=== PATIENT | female | born 1940 | race Caucasian/White ===

== ENCOUNTER 2016-08-15 18:37 | Inpatient (IN) | payer MEDICARE ==
[2016-08-15] MEDS: HEPARIN SOD (PORCINE) 5,000 UNIT/ML 1 ML SYRINGE SUBCUT SCH (01:30)
[2016-08-15 19:07] LABS: ABSOLUTE EOSINOPHILS # (AUTO) 0.3 10^3/uL (0.0-0.6); ABSOLUTE LYMPHOCYTES (AUTO) 1.4 10^3/uL (0.5-4.7); ABSOLUTE MONOCYTES (AUTO) 0.6 10^3/uL (0.1-1.4); ABSOLUTE NEUT (AUTO) 7.9 10^3/uL (1.7-8.2); BASOPHILS % (AUTO) 0.5 % (0-2); EOSINOPHILS % (AUTO) 2.9 % (0-6); HEMATOCRIT 37.1 % (36.0-47.0); HEMOGLOBIN 12.5 g/dL (12.0-15.5); HGB HCT DIFFERENCE 0.4; LYMPHOCYTES % (AUTO) 13.9 % (13-45); MEAN CORPUSCULAR HEMOGLOBIN 30.1 pg (27.0-33.4); MEAN CORPUSCULAR HGB CONC 33.8 g/dL (32.0-36.0); MEAN CORPUSCULAR VOLUME 89 fl (80-97); MONOCYTES % (AUTO) 6.2 % (3-13); RED BLOOD COUNT 4.16 10^6/uL (3.72-5.28); RED CELL DISTRIBUTION WIDTH 14.7 % (11.5-14.0); SEGMENTED NEUTROPHILS % (AUTO) 76.5 % (42-78); WHITE BLOOD COUNT 10.3 10^3/uL (4.0-10.5)
[2016-08-15 19:15] LABS: PROTHROMBIN TIME 13.5 SEC (11.4-15.4)
[2016-08-15] MEDS ORDERED: IPRATROPIUM/ALBUTEROL 0.5-2.5 MG/3 ML AMPUL NEB ONE (19:15)
[2016-08-15 19:23] LABS: VENOUS BLOOD BASE EXCESS 8.4 mmol/L; VENOUS BLOOD HCO3 35.4 mmol/L (20-32); VENOUS BLOOD PCO2 60.2 mmHg (35-63); VENOUS BLOOD PH 7.39 (7.30-7.42)
[2016-08-15] MEDS ORDERED: LORAZEPAM INJ 2 MG/1 ML VIAL IV ONE (19:36)
[2016-08-15] MEDS ORDERED: LORAZEPAM INJ 2 MG/1 ML VIAL ONE (19:38)
--- NOTE | 2016-08-15 20:20 | ER Document Report ---
ED General - General Chief Complaint: Respiratory Distress Stated Complaint: RESPIRATORY DISTRESS Mode of Arrival: Ambulatory Information source: Patient Notes: 75-year-old female presents with complaints of difficulty breathing. Patient notes she has had multiple previous similar episodes denies any previous intubation. Denies any productivity to cough patient with history of CHF COPD hypertension took 6 breathing treatments prior to arrival of EMS TRAVEL OUTSIDE OF THE [place] IN LAST 30 DAYS: No - HPI Onset: Just prior to arrival Onset/Duration: Sudden Quality of pain: No pain Severity: Moderate Pain Level: Denies Associated symptoms: Shortness of breath Exacerbated by: Denies Relieved by: Denies Similar symptoms previously: Yes Recently seen / treated by doctor: Yes - Related Data Allergies/Adverse Reactions: No Known Drug Allergies Allergy (Verified 07/16/16 12:01) Past Medical History - General Information source: Patient, Emergency Med Personnel - Social History Smoking Status: Smoker,Current Status Unk Cigarette use (# per day): No Chew tobacco use (# tins/day): No Smoking Education Provided: No Frequency of alcohol use: None Drug Abuse: None Family History: Malignancy - Mother of a complication, father of COPD, both siblings of cancer, Other Patient has suicidal ideation: No Patient has homicidal ideation: No - Past Medical History Cardiac Medical History: Reports: Hx Congestive Heart Failure, Hx Hypercholesterolemia, Hx Hypertension Pulmonary Medical History: Reports: Hx COPD, Hx Sleep Apnea Denies: Hx Tuberculosis Endocrine Medical History: Reports: Hx Diabetes Mellitus Type 2, Hx Hypothyroidism Musculoskeltal Medical History: Reports Hx Arthritis Psychiatric Medical History: Denies: Hx Depression Past Surgical History: Reports: Hx Hysterectomy, Hx Vascular Surgery - Immunizations Hx Diphtheria, Pertussis, Tetanus Vaccination: Yes Hx Pneumococcal Vaccination: 09/08/13 Review of Systems - Review of Systems Notes: REVIEW OF SYSTEMS: CONSTITUTIONAL : Denies fever, chills, or sweats. Denies recent illness. EENT: Denies eye, ear, throat, or mouth pain or symptoms. Denies nasal or sinus congestion or discharge. Denies throat, tongue, or mouth swelling or difficulty swallowing. CARDIOVASCULAR: Denies chest pain. Denies palpitations or racing or irregular heart beat. Denies ankle edema. RESPIRATORY: admits ot dififuctly breathing GASTROINTESTINAL: Denies abdominal pain or distention. Denies nausea, vomiting , or diarrhea. Denies blood in vomitus, stools, or per rectum. Denies black, tarry stools. Denies constipation. GENITOURINARY: Denies difficulty urinating, painful urination, burning, frequency, blood in urine, or discharge. FEMALE GENITOURINARY: Denies vaginal bleeding, heavy or abnormal periods, irregular periods. Denies vaginal discharge or odor. MUSCULOSKELETAL: Denies back or neck pain or stiffness. Denies joint pain or swelling. SKIN: Denies rash, lesions or sores. HEMATOLOGIC : Denies easy bruising or bleeding. LYMPHATIC: Denies swollen, enlarged glands. NEUROLOGICAL: Denies confusion or altered mental status. Denies passing out or loss of consciousness. Denies dizziness or lightheadedness. Denies headache. Denies weakness or paralysis or loss of use of either side. Denies problems with gait or speech. Denies sensory loss, numbness, or tingling. Denies seizures. PSYCHIATRIC: Denies anxiety or stress. Denies depression, suicidal ideation, or homicidal ideation. ALL OTHER SYSTEMS REVIEWED AND NEGATIVE. Dictation was performed using [employer] voice recognition software PHYSICAL EXAMINATION: GENERAL: chronically ill appearing in significat respiratory distress HEAD: Atraumatic, normocephalic. EYES: Pupils equal round and reactive to light, extraocular movements intact, conjunctiva are normal. ENT: Nares patent, oropharynx clear without exudates. Moist mucous membranes. NECK: Normal range of motion, supple without lymphadenopathy LUNGS: decreased breath sounds throughout, significant resp distress HEART: Regular rate and rhythm without murmurs ABDOMEN: Soft, nontender, nondistended abdomen. No guarding, no rebound. No masses appreciated. Female : deferred Musculoskeletal: Normal range of motion, no pitting or edema. No cyanosis. NEUROLOGICAL: Cranial nerves grossly intact. Normal speech, normal gait. Normal sensory, motor exams PSYCH: Normal mood, normal affect. SKIN: Warm, Dry, normal turgor, no rashes or lesions noted. Physical Exam - Vital signs Vitals: Pulse Ox 100 08/15/16 18:47 Course - Re-evaluation Re-evalutation: 08/15/16 20:26 spoke elsi perez, he does not beleive patient requires admission at this time, will take her off bipap and recheck on her home 2 l nc 08/15/16 20:31 Patient is set up to 75% on 2 L nasal cannula I will place BiPAP back on her at this time 08/15/16 20:36 Dr perez will admit patient - Vital Signs Vital signs: Temp Pulse Resp BP Pulse Ox 97.6 F 37 H 131/47 H 94 08/15/16 19:22 08/15/16 20:02 08/15/16 20:02 08/15/16 20:02 - Laboratory Result Diagrams: 08/15/16 18:50 08/15/16 20:00 Laboratory results interpreted by me: 08/15/16 08/15/16 08/15/16 18:50 19:10 20:00 RDW 14.7 H VBG HCO3 35.4 H Carbon Dioxide 33 H BUN 33 H Est GFR ( Amer) 55 L Est GFR (Non-Af Amer) 45 L Glucose 217 H ALT 60 H - Diagnostic Test Radiology reviewed: Image reviewed, Reports reviewed - EKG Interpretation by Me EKG shows normal: Sinus rhythm, [place], Intervals, QRS Complexes Critical Care Note - Critical Care Note Total time excluding time spent on procedures (mins): 45 Comments: minutes of critical care time spent in direct contact evaluating and reevaluating the patient, treating symptoms, reviewing labs and studies and speaking with family and consultants excluding any procedures Discharge - Discharge Clinical Impression: Acute on chronic respiratory failure with hypoxemia, COPD with exacerbation Condition: Serious Disposition: ADMITTED INPATIENT Admitting Provider: Hospitalist Unit Admitted: [facility]
[2016-08-15 20:29] LABS: ALANINE AMINOTRANSFERASE 60 U/L (9-52); ALKALINE PHOSPHATASE 63 U/L (38-126); ANION GAP 11 (5-19); ASPARTATE AMINO TRANSFERASE 29 U/L (14-36); BILIRUBIN,TOTAL 0.6 mg/dL (0.2-1.3); BLOOD UREA NITROGEN 33 mg/dL (7-20); CALCIUM 9.7 mg/dL (8.4-10.2); CARBON DIOXIDE 33 mmol/L (22-30); CHLORIDE 98 mmol/L (98-107); CREATININE RESULT 1.17 mg/dL (0.52-1.25); GLUCOSE 217 mg/dL (75-110); POTASSIUM 4.1 mmol/L (3.6-5.0); TOTAL PROTEIN 6.5 g/dL (6.3-8.2)
[2016-08-15 21:12] LABS: ARTERIAL BLOOD BASE EXCESS 5.1 mmol/L; ARTERIAL BLOOD O2 SATURATION 98.3 % (94-98)
[2016-08-15] MEDS ORDERED: LIDOCAINE 1% INJ-PF (10 MG/ML) 30 ML SDV ONE (21:15)
[2016-08-15] MEDS ORDERED: ACETAMINOPHEN 325 MG TABLET PO PRN (21:23)
[2016-08-15] MEDS ORDERED: MAGNESIUM HYDROXIDE SUSP 30 ML UDCUP PO PRN (21:23)
[2016-08-15] MEDS ORDERED: IPRATROPIUM/ALBUTEROL 0.5-2.5 MG/3 ML AMPUL NEB PRN (21:23)
[2016-08-15] MEDS ORDERED: DEXTROSE 40% GEL 15 GM TUBE PO PRN ×2 (21:23)
[2016-08-15] MEDS ORDERED: GLUCAGON,HUMAN RECOMB 1 MG INJ IM PRN (21:23)
[2016-08-15] MEDS ORDERED: DEXTROSE 50%-WATER 25 GM/50 ML DISP.SYRIN IV PRN ×2 (21:23)
[2016-08-15] MEDS ORDERED: ONDANSETRON HCL INJ/PF 4 MG/2 ML SDV IV PRN (21:23)
[2016-08-15 21:26] LABS: CREATINE KINASE MB 1.33 ng/mL (<4.55); TROPONIN I 0.017 ng/mL
[2016-08-15] MEDS ORDERED: NORMAL SALINE 1000 ML 1,000 ML IV ONE (21:30)
[2016-08-15] MEDS ORDERED: ACETAZOLAMIDE 250 MG TABLET PO ONE (21:45)
[2016-08-15 21:56] LABS: MAGNESIUM 1.7 mg/dL (1.6-2.3); PHOSPHORUS 4.6 mg/dL (2.5-4.5)
[2016-08-15] MEDS ORDERED: DILTIAZEM HCL 60 MG TABLET PO ONE (22:33)
[2016-08-16] MEDS ORDERED: LORAZEPAM INJ 2 MG/1 ML VIAL ONE
[2016-08-16] MEDS ORDERED: AMLODIPINE BESYLATE 5 MG TABLET PO ONE (00:07)
[2016-08-16] MEDS ORDERED: DILTIAZEM HCL INJ 25 MG/5 ML VIAL ONE (01:14)
[2016-08-16] MEDS: DILTIAZEM HCL 60 MG TABLET PO SCH ×4 (01:56→18:07)
[2016-08-16] MEDS: IPRATROPIUM/ALBUTEROL 0.5-2.5 MG/3 ML AMPUL NEB SCH ×4 (02:05→19:51)
[2016-08-16] MEDS ORDERED: DILTIAZEM HCL INJ 25 MG/5 ML VIAL IV ONE (02:15)
[2016-08-16] MEDS: HEPARIN SOD (PORCINE) 5,000 UNIT/ML 1 ML SYRINGE SUBCUT SCH ×3 (05:49→21:55)
[2016-08-16 06:16] LABS: ABSOLUTE EOSINOPHILS # (AUTO) 0.3 10^3/uL (0.0-0.6); ABSOLUTE LYMPHOCYTES (AUTO) 1.1 10^3/uL (0.5-4.7); ABSOLUTE MONOCYTES (AUTO) 1.1 10^3/uL (0.1-1.4); ABSOLUTE NEUT (AUTO) 9.3 10^3/uL (1.7-8.2); BASOPHILS % (AUTO) 0.1 % (0-2); EOSINOPHILS % (AUTO) 2.6 % (0-6); HEMATOCRIT 34.6 % (36.0-47.0); HEMOGLOBIN 11.7 g/dL (12.0-15.5); HGB HCT DIFFERENCE 0.5; LYMPHOCYTES % (AUTO) 9.2 % (13-45); MEAN CORPUSCULAR HEMOGLOBIN 30.6 pg (27.0-33.4); MEAN CORPUSCULAR HGB CONC 33.9 g/dL (32.0-36.0); MEAN CORPUSCULAR VOLUME 90 fl (80-97); MONOCYTES % (AUTO) 9.1 % (3-13); RED BLOOD COUNT 3.84 10^6/uL (3.72-5.28); RED CELL DISTRIBUTION WIDTH 14.9 % (11.5-14.0); WHITE BLOOD COUNT 11.7 10^3/uL (4.0-10.5)
[2016-08-16 06:31] LABS: ANION GAP 7 (5-19); BLOOD UREA NITROGEN 33 mg/dL (7-20); CALCIUM 9.1 mg/dL (8.4-10.2); CARBON DIOXIDE 38 mmol/L (22-30); CHLORIDE 100 mmol/L (98-107); CREATINE KINASE 46 U/L (30-135); CREATININE RESULT 1.07 mg/dL (0.52-1.25); GLUCOSE 181 mg/dL (75-110); SODIUM 145.1 mmol/L (137-145)
[2016-08-16 06:43] LABS: CREATINE KINASE MB 1.48 ng/mL (<4.55); POTASSIUM 5.2 mmol/L (3.6-5.0); TROPONIN I 0.039 ng/mL
--- NOTE | 2016-08-16 06:43 | PDOC H&P ---
History of Present Illness Admission Date/PCP: 08/15/16 21:23 Patient complains of: Shortness of breath History of Present Illness: NIELS ALSTON is a 75 year old female with a history of COPD with home O2 dependence, chronic bronchitis, obstructive sleep apnea, anxiety, diabetes and persistent tobacco dependence. Who was just discharged on August 11 for the above having recurrent symptoms prompting her to seek evaluation emergency room where she's found to be tachypneic and tachycardic found to have a blood gas notable for hypercapnic respiratory failure with a PCO2 over 78 she started on BiPAP and referred to the hospitalist for admission. Patient required Ativan's for severe agitation and is subsequently unable to cooperate with history and exam. Past Medical History Cardiac Medical History: Reports: Congestive Heart Failure, Hyperlipidema, Hypertension Pulmonary Medical History: Reports: Chronic Obstructive Pulmonary Disease (COPD) , Sleep Apnea Denies: Tuberculosis Endocrine Medical History: Reports: Diabetes Mellitus Type 2, Hypothyroidism Musculoskeltal Medical History: Reports: Arthritis Psychiatric Medical History: Reports: General Anxiety Disorder, Tobacco Dependency Denies: Depression Past Surgical History Past Surgical History: Reports: Hysterectomy, Vascular Surgery Social History Information Source: [facility] Records Smoking Status: Current Every Day Smoker Frequency of Alcohol Use: None Hx Recreational Drug Use: No Drugs: None Hx Prescription Drug Abuse: No - Advance Directive Resuscitation Status: Full Code Family History Family History: Malignancy - Mother of a complication, father of COPD, both siblings of cancer, Other Parental Family History Reviewed: Yes Children Family History Reviewed: Yes Sibling(s) Family History Reviewed.: Yes Medication/Allergy Home Medications: Budesonide/Formoterol Fumarate [Symbicort 160-4.5 Mcg Inhaler] 2 puff IH BID Acetaminophen [Tylenol 325 mg Tablet] 650 mg PO Q4HP PRN tablet 07/20/16 Albuterol Sulfate [Ventolin 0.083% Neb 2.5 mg/3 mL Ampul] 2.5 mg NEB Q6HP PRN # 60 vial.neb 07/20/16 Levothyroxine Sodium [Synthroid] 175 mcg PO DAILY #30 tablet 07/20/16 Lisinopril [Prinivil 10 mg Tablet] 10 mg PO DAILY #30 tablet 07/20/16 Metoprolol Succinate [Toprol Xl 25 mg Tab.sr] 25 mg PO DAILY #30 tab.sr.24h Furosemide [Lasix 20 mg Tablet] 20 mg PO QAM #30 tablet 08/11/16 Aspirin [Ecotrin 81 mg EC Tablet] 81 mg PO DAILY #30 tabec 08/12/16 Gemfibrozil [Lopid 600 mg Tablet] 600 mg PO BID #60 tab 08/12/16 Isosorbide Mononitrate [Imdur 30 mg Tablet.er] 30 mg PO DAILY #30 tab.er.24h Rosuvastatin Calcium [Crestor] 40 mg PO QHS #30 tab 08/12/16 Fenofibrate Nanocrystallized [Fenofibrate] 08/16/16 Fenofibrate Nanocrystallized [Fenofibrate] 145 mg PO DAILY 08/16/16 Glipizide [Glipizide Xl] 5 mg PO BID 08/16/16 Metformin HCl [Glucophage] 500 mg PO BID 08/16/16 Allergies/Adverse Reactions: No Known Drug Allergies Allergy (Verified 07/16/16 12:01) Review of Systems ROS unobtainable: Due to mental status Physical Exam Vital Signs: Temp Pulse Resp BP Pulse Ox 98.4 F 100 26 H 140/38 H 98 08/16/16 04:24 08/16/16 04:24 08/16/16 04:24 08/16/16 04:24 08/16/16 04:24 Intake & Output 08/14/16 08/15/16 08/16/16 11:59 11:59 11:59 Intake Total 1002 Balance 1002 Weight 91.4 kg General appearance: PRESENT: disheveled, mild distress Head exam: PRESENT: atraumatic, normocephalic Eye exam: PRESENT: conjunctiva pink, EOMI, PERRLA. ABSENT: scleral icterus Ear exam: PRESENT: normal external ear exam Mouth exam: PRESENT: moist, tongue midline Neck exam: ABSENT: carotid bruit, JVD, lymphadenopathy, thyromegaly Respiratory exam: PRESENT: decreased breath sounds, prolonged expiratory phas, symmetrical, tachypnea. ABSENT: accessory muscle use, chest wall tenderness, retraction, rhonchi, stridor Cardiovascular exam: PRESENT: RRR. ABSENT: diastolic murmur, rubs, systolic murmur Pulses: PRESENT: normal dorsalis pedis pul Vascular exam: PRESENT: normal capillary refill GI/Abdominal exam: PRESENT: normal bowel sounds, soft. ABSENT: distended, guarding, mass, organolmegaly, rebound, tenderness Rectal exam: PRESENT: deferred Extremities exam: PRESENT: full ROM. ABSENT: calf tenderness, clubbing, pedal edema Neurological exam: PRESENT: alert, oriented to person, CN II-XII grossly intact Psychiatric exam: PRESENT: agitated, anxious Skin exam: PRESENT: dry, intact, warm. ABSENT: cyanosis, rash Results Laboratory Results: 08/16/16 05:02 08/16/16 05:02 WBC 11.7 H RBC 3.84 Hgb 11.7 L Hct 34.6 L MCV 90 MCH 30.6 MCHC 33.9 RDW 14.9 H Plt Count 183 Seg Neutrophils % 79.0 H Lymphocytes % 9.2 L Monocytes % 9.1 Eosinophils % 2.6 Basophils % 0.1 Absolute Neutrophils 9.3 H Absolute Lymphocytes 1.1 Absolute Monocytes 1.1 Absolute Eosinophils 0.3 Absolute Basophils 0.0 Impressions: Chest X-Ray 08/15/16 18:57 IMPRESSION: NO ACUTE RADIOGRAPHIC FINDING IN THE CHEST. Assessment & Plan - Diagnosis (1) Acute on chronic respiratory failure with hypoxemia Is this a current diagnosis for this admission?: YesPlan: Empiric antibiotics albuterol Atrovent consideration of steroids,aggressive pulmonary toilet avoidance of tobacco continued BiPAP (2) Acute exacerbation of chronic bronchitis Is this a current diagnosis for this admission?: YesPlan: We see #1 with addition of empiric doxycycline (3) Diabetes mellitus Qualifiers: Diabetes mellitus type: type 2 Diabetes mellitus complication status: with hyperglycemia Diabetes mellitus intermodal dispatcher insulin use: without fpc use Qualified Code(s): E11.65 - Type 2 diabetes mellitus with hyperglycemia; 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
[2016-08-16] MEDS ORDERED: DOXYCYCLINE HYCLATE 100 MG TABLET PO ONE (07:00)
--- NOTE | 2016-08-16 08:37 | EKG REPORT ---
SEVERITY:- OTHERWISE NORMAL ECG - SINUS TACHYCARDIA : Confirmed by: Kishore Nicole MD 16-Aug-2016 08:36:18
[2016-08-16] MEDS: DOCUSATE SODIUM 100 MG CAPSULE PO SCH ×2 (09:57→18:07)
[2016-08-16] MEDS ORDERED: ACETAZOLAMIDE 250 MG TABLET PO SCH (10:00)
[2016-08-16 14:11] LABS: CREATINE KINASE MB 1.77 ng/mL (<4.55); TROPONIN I 0.042 ng/mL
[2016-08-16] MEDS: METOPROLOL TARTRATE PF/INJ 5 MG/5 ML SDV IV SCH ×2 (14:20→21:54)
--- NOTE | 2016-08-16 15:01 | PDOC PROGRESS REPORT ---
Subjective Progress Note for:: 08/16/16 Subjective:: The patient is nonverbal. On BiPAP. Readmitted for respiratory failure and COPD exacerbation. He received multiple doses of benzodiazepine in the emergency room. No reported temperature spikes, nausea or vomiting, diarrhea. Physical Exam Vital Signs: Temp Pulse Resp BP Pulse Ox 98.2 F 104 H 27 H 93/37 L 97 08/16/16 11:58 08/16/16 13:53 08/16/16 13:53 08/16/16 11:58 08/16/16 13:53 Intake & Output 08/15/16 08/16/16 08/17/16 06:59 06:59 06:59 Intake Total 1002 0 Balance 1002 0 Weight 91.4 kg General appearance: PRESENT: no acute distress, morbidly obese, other Exam: On BiPAP Head exam: PRESENT: normocephalic Eye exam: PRESENT: conjunctiva pink Mouth exam: PRESENT: moist, neck supple Neck exam: ABSENT: JVD Respiratory exam: PRESENT: decreased breath sounds, unlabored. ABSENT: crackles , rhonchi, wheezes Cardiovascular exam: PRESENT: RRR. ABSENT: gallop GI/Abdominal exam: PRESENT: hypoactive bowel sounds, soft. ABSENT: distended, tenderness Extremities exam: ABSENT: pedal edema Neurological exam: PRESENT: altered - Sedated, able to respond when shaken and called. Psychiatric exam: ABSENT: agitated Focused psych exam: ABSENT: restlessness Skin exam: PRESENT: dry, warm. ABSENT: cyanosis Results Laboratory Results: 08/16/16 05:02 08/16/16 05:02 08/16/16 08/16/16 08/16/16 05:02 05:02 14:10 WBC 11.7 H RBC 3.84 Hgb 11.7 L Hct 34.6 L MCV 90 MCH 30.6 MCHC 33.9 RDW 14.9 H Plt Count 183 Seg Neutrophils % 79.0 H Lymphocytes % 9.2 L Monocytes % 9.1 Eosinophils % 2.6 Basophils % 0.1 Absolute Neutrophils 9.3 H Absolute Lymphocytes 1.1 Absolute Monocytes 1.1 Absolute Eosinophils 0.3 Absolute Basophils 0.0 Carbonic Acid Cancelled HCO3/H2CO3 Ratio Cancelled ABG pH Cancelled ABG pCO2 Cancelled ABG pO2 Cancelled ABG HCO3 Cancelled ABG O2 Saturation Cancelled ABG Base Excess Cancelled FiO2 Cancelled Sodium 145.1 H Potassium 5.2 H D Chloride 100 Carbon Dioxide 38 H Anion Gap 7 BUN 33 H Creatinine 1.07 Est GFR ( Amer) > 60 Est GFR (Non-Af Amer) 50 L Glucose 181 H Calcium 9.1 08/16/16 08/16/16 08/16/16 05:02 05:02 13:10 Creatine Kinase 46 58 CK-MB (CK-2) 1.48 Troponin I 0.039 08/16/16 13:10 Creatine Kinase CK-MB (CK-2) 1.77 Troponin I 0.042 Impressions: Chest X-Ray 08/15/16 18:57 IMPRESSION: NO ACUTE RADIOGRAPHIC FINDING IN THE CHEST. Assessment & Plan - Diagnosis (1) Acute on chronic respiratory failure with hypoxemia Is this a current diagnosis for this admission?: Yes (2) COPD with exacerbation Is this a current diagnosis for this admission?: Yes (3) Debility Is this a current diagnosis for this admission?: Yes (4) Hyperkalemia Is this a current diagnosis for this admission?: Yes (5) Diabetes mellitus Qualifiers: Diabetes mellitus type: type 2 Diabetes mellitus complication status: with hyperglycemia Diabetes mellitus intermission coordinator insulin use: without detention use Qualified Code(s): E11.65 - Type 2 diabetes mellitus with hyperglycemia; 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.4 - termite 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) 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 of insulin Is this a current diagnosis for this admission?: Yes (6) Hypothyroid Qualifiers: Hypothyroidism type: unspecified Qualified Code(s): E03.9 - Hypothyroidism, unspecified Is this a current diagnosis for this admission?: Yes (7) Left ventricular diastolic dysfunction Is this a current diagnosis for this admission?: Yes (8) Hypertension Qualifiers: Hypertension type: essential hypertension Qualified Code(s): I10 - Essential (primary) hypertension Is this a current diagnosis for this admission?: Yes (9) Hyperlipidemia Qualifiers: Hyperlipidemia type: unspecified Qualified Code(s): E78.5 - Hyperlipidemia, unspecified Is this a current diagnosis for this admission?: Yes (10) Anxiety Is this a current diagnosis for this admission?: Yes (11) Obstructive sleep apnea Is this a current diagnosis for this admission?: Yes - Time Time Spent with patient: 25-34 minutes - Plan Summary Plan Summary: We will obtain an ABG. We will begin continuous intravenous fluid hydration. Hold any sedatives. Continue BiPAP. I will put the patient on intravenous metoprolol instead of Cardizem. Avoid sedatives when fully awake. Continue bronchodilators. management planner for subacute rehabilitation. We will monitor cardiac enzymes and electrolytes as well.
[2016-08-16 15:13] LABS: ARTERIAL BLOOD BASE EXCESS 5.7 mmol/L; ARTERIAL BLOOD O2 SATURATION 97.1 % (94-98)
[2016-08-16 15:51] LABS: ARTERIAL BLOOD BASE EXCESS 5.6 mmol/L; ARTERIAL BLOOD O2 SATURATION 97.1 % (94-98)
[2016-08-16] MEDS: NORMAL SALINE 1000 ML 1,000 ML IV PRN (16:31)
[2016-08-16] MEDS ORDERED: SODIUM POLYSTYRENE SULFONATE 15 GM/60 ML PO ONE (20:00)
[2016-08-16] MEDS ORDERED: ACETAMINOPHEN 650 MG SUPP.RECT PR PRN (21:27)
[2016-08-16] MEDS ORDERED: DOXYCYCLINE HYCLATE 100 MG TABLET PO SCH (22:00)
[2016-08-16] MEDS ORDERED: DOXYCYCLINE HYCLATE INJ 100 MG VIAL IV SCH (22:00)
[2016-08-16] MEDS: DOXYCYCLINE HYCLATE 100 MG in DEXTROSE 5%-WATER 250 ML IV SCH (22:26)
[2016-08-17] MEDS: IPRATROPIUM/ALBUTEROL 0.5-2.5 MG/3 ML AMPUL NEB SCH ×4 (02:20→20:19)
[2016-08-17 03:26] LABS: ANION GAP 8 (5-19); BLOOD UREA NITROGEN 26 mg/dL (7-20); CALCIUM 9.4 mg/dL (8.4-10.2); CARBON DIOXIDE 38 mmol/L (22-30); CHLORIDE 101 mmol/L (98-107); CREATININE RESULT 0.86 mg/dL (0.52-1.25); GLUCOSE 127 mg/dL (75-110); POTASSIUM 5.1 mmol/L (3.6-5.0); SODIUM 146.6 mmol/L (137-145)
[2016-08-17 03:29] LABS: HEMATOCRIT 35.6 % (36.0-47.0); HEMOGLOBIN 11.8 g/dL (12.0-15.5); HGB HCT DIFFERENCE -0.2; MEAN CORPUSCULAR HEMOGLOBIN 30.5 pg (27.0-33.4); MEAN CORPUSCULAR HGB CONC 33.2 g/dL (32.0-36.0); MEAN CORPUSCULAR VOLUME 92 fl (80-97); RED BLOOD COUNT 3.88 10^6/uL (3.72-5.28); RED CELL DISTRIBUTION WIDTH 14.4 % (11.5-14.0); WHITE BLOOD COUNT 6.2 10^3/uL (4.0-10.5)
[2016-08-17] MEDS: METOPROLOL TARTRATE PF/INJ 5 MG/5 ML SDV IV SCH ×4 (05:26→21:45)
[2016-08-17] MEDS: HEPARIN SOD (PORCINE) 5,000 UNIT/ML 1 ML SYRINGE SUBCUT SCH ×3 (05:27→21:55)
[2016-08-17] MEDS: NORMAL SALINE 1000 ML 1,000 ML IV PRN ×3 (07:48→21:55)
[2016-08-17] MEDS: DOXYCYCLINE HYCLATE 100 MG in DEXTROSE 5%-WATER 250 ML IV SCH ×2 (09:10→21:45)
--- NOTE | 2016-08-17 15:15 | PDOC PROGRESS REPORT ---
Subjective Progress Note for:: 08/17/16 Subjective:: Patient is more awake today than yesterday. However the patient still restless. Patient remains confused and is on restrain. She is on 50% FiO2 and remained on BiPAP. No temperature spikes or respiratory distress reported. Patient off sedatives. Physical Exam Vital Signs: Temp Pulse Resp BP Pulse Ox 99.5 F 119 H 33 H 112/67 95 08/17/16 11:46 08/17/16 14:35 08/17/16 14:35 08/17/16 11:46 08/17/16 14:35 Intake & Output 08/16/16 08/17/16 08/18/16 06:59 06:59 06:59 Intake Total 1002 1252 0 Balance 1002 1252 0 Weight 91.4 kg 109 kg General appearance: PRESENT: morbidly obese, other - On BiPAP, Head exam: PRESENT: normocephalic Mouth exam: PRESENT: moist, neck supple Neck exam: ABSENT: JVD Respiratory exam: PRESENT: clear to auscultation jessenia - Anteriorly. ABSENT: crackles, wheezes Cardiovascular exam: PRESENT: RRR, tachycardia GI/Abdominal exam: PRESENT: soft. ABSENT: distended, tenderness Extremities exam: ABSENT: pedal edema Neurological exam: PRESENT: altered Focused psych exam: PRESENT: restlessness Skin exam: PRESENT: dry, warm. ABSENT: cyanosis Results Laboratory Results: 08/17/16 03:04 08/17/16 03:04 08/16/16 08/16/16 08/16/16 14:45 15:40 17:12 WBC RBC Hgb Hct MCV MCH MCHC RDW Plt Count Carbonic Acid 2.74 H 2.37 H HCO3/H2CO3 Ratio 13:1 14:1 ABG pH 7.22 L 7.27 L ABG pCO2 91.1 H* 78.6 H* ABG pO2 115.1 H 109.2 H ABG HCO3 36.2 H 34.9 H ABG O2 Saturation 97.1 97.1 ABG Base Excess 5.7 5.6 FiO2 45% 45% Sodium Potassium 5.2 H Chloride Carbon Dioxide Anion Gap BUN Creatinine Est GFR ( Amer) Est GFR (Non-Af Amer) Glucose Calcium 08/17/16 08/17/16 03:04 03:04 WBC 6.2 RBC 3.88 Hgb 11.8 L Hct 35.6 L MCV 92 MCH 30.5 MCHC 33.2 RDW 14.4 H Plt Count 128 L Carbonic Acid HCO3/H2CO3 Ratio ABG pH ABG pCO2 ABG pO2 ABG HCO3 ABG O2 Saturation ABG Base Excess FiO2 Sodium 146.6 H Potassium 5.1 H Chloride 101 Carbon Dioxide 38 H Anion Gap 8 BUN 26 H Creatinine 0.86 Est GFR ( Amer) > 60 Est GFR (Non-Af Amer) > 60 Glucose 127 H Calcium 9.4 08/16/16 08/16/16 08/16/16 05:02 05:02 13:10 Creatine Kinase 46 58 CK-MB (CK-2) 1.48 Troponin I 0.039 08/16/16 08/16/16 08/16/16 13:10 17:12 17:12 Creatine Kinase 65 CK-MB (CK-2) 1.77 Troponin I 0.042 0.038 08/16/16 08/16/16 08/17/16 20:59 20:59 03:04 Creatine Kinase 68 66 CK-MB (CK-2) Troponin I 0.039 08/17/16 03:04 Creatine Kinase CK-MB (CK-2) Troponin I 0.035 Impressions: Chest X-Ray 08/15/16 18:57 IMPRESSION: NO ACUTE RADIOGRAPHIC FINDING IN THE CHEST. Assessment & Plan - Diagnosis (1) Acute on chronic respiratory failure with hypoxemia Is this a current diagnosis for this admission?: Yes (2) COPD with exacerbation Is this a current diagnosis for this admission?: Yes (3) Debility Is this a current diagnosis for this admission?: Yes (4) Hyperkalemia Is this a current diagnosis for this admission?: Yes (5) Diabetes mellitus Qualifiers: Diabetes mellitus type: type 2 Diabetes mellitus complication status: with hyperglycemia Diabetes mellitus rat exterminator insulin use: without rat exterminator use Qualified Code(s): E11.65 - Type 2 diabetes mellitus with hyperglycemia; Z79.4 - senior care (current) use of insulin Is this a current diagnosis for this admission?: Yes (6) Hypothyroid Qualifiers: Hypothyroidism type: unspecified Qualified Code(s): E03.9 - Hypothyroidism, unspecified Is this a current diagnosis for this admission?: Yes (7) Left ventricular diastolic dysfunction Is this a current diagnosis for this admission?: Yes (8) Hypertension Qualifiers: Hypertension type: essential hypertension Qualified Code(s): I10 - Essential (primary) hypertension Is this a current diagnosis for this admission?: Yes (9) Hyperlipidemia Qualifiers: Hyperlipidemia type: unspecified Qualified Code(s): E78.5 - Hyperlipidemia, unspecified Is this a current diagnosis for this admission?: Yes (10) Anxiety Is this a current diagnosis for this admission?: Yes (11) Obstructive sleep apnea Is this a current diagnosis for this admission?: Yes - Time Time Spent with patient: 25-34 minutes - Plan Summary Plan Summary: We will try to decrease the FiO2. We will try to wean BiPAP and displaced the patient and nasal cannula oxygen. We will obtain an ABG. We will repeat potassium and give the patient insulin and D50. Continue other medications and supportive care.
[2016-08-17] MEDS ORDERED: DEXTROSE 50%-WATER 25 GM/50 ML DISP.SYRIN IV ONE (15:30)
[2016-08-17] MEDS ORDERED: INSULIN REG, HUMAN 100 UNIT/ML 3 ML VIAL (PYX) IV ONE (15:30)
[2016-08-17 16:49] LABS: ARTERIAL BLOOD BASE EXCESS 9.7 mmol/L; ARTERIAL BLOOD O2 SATURATION 94.9 % (94-98)
[2016-08-17] MEDS ORDERED: LORAZEPAM INJ 2 MG/1 ML VIAL ONE (18:09)
[2016-08-17] MEDS ORDERED: LORAZEPAM INJ 2 MG/1 ML VIAL IV ONE (18:15)
[2016-08-18] MEDS: IPRATROPIUM/ALBUTEROL 0.5-2.5 MG/3 ML AMPUL NEB SCH ×4 (02:06→21:21)
[2016-08-18] MEDS: METOPROLOL TARTRATE PF/INJ 5 MG/5 ML SDV IV SCH ×4 (03:01→23:30)
[2016-08-18] MEDS: HEPARIN SOD (PORCINE) 5,000 UNIT/ML 1 ML SYRINGE SUBCUT SCH ×3 (05:23→23:29)
[2016-08-18] MEDS: DOXYCYCLINE HYCLATE 100 MG in DEXTROSE 5%-WATER 250 ML IV SCH ×2 (09:20→23:28)
--- NOTE | 2016-08-18 10:00 | PDOC PROGRESS REPORT ---
Subjective Progress Note for:: 08/18/16 Subjective:: Patient reportedly tolerated off BiPAP yesterday on nasal cannula oxygen but early this morning started to desaturate. Patient given Ativan yesterday and did well on 1 mg. No reported oversedation. No reported temperature spikes. This morning oxygenation was in 50% and the patient was pale looking and therefore placed back on BiPAP at 100%. Patient is now resting again and lethargic. Physical Exam Vital Signs: Temp Pulse Resp BP Pulse Ox 97.7 F 112 H 40 H 183/163 H 81 L 08/18/16 07:08 08/18/16 08:31 08/18/16 07:08 08/18/16 07:08 08/18/16 07:08 Intake & Output 08/17/16 08/18/16 08/19/16 06:59 06:59 06:59 Intake Total 1252 2061 Output Total 0 Balance 1252 2061 Weight 109 kg 108.7 kg General appearance: PRESENT: no acute distress, obese, other - Lethargic Head exam: PRESENT: normocephalic Eye exam: PRESENT: conjunctiva pink Mouth exam: PRESENT: dry mucosa, neck supple Neck exam: ABSENT: JVD Respiratory exam: PRESENT: clear to auscultation jessenia, unlabored. ABSENT: accessory muscle use, rhonchi, wheezes Cardiovascular exam: PRESENT: RRR. ABSENT: gallop GI/Abdominal exam: PRESENT: hypoactive bowel sounds, soft. ABSENT: tenderness Extremities exam: PRESENT: pedal edema - Trace edema Skin exam: PRESENT: dry, warm. ABSENT: cyanosis Results Laboratory Results: 08/17/16 03:04 08/17/16 18:15 08/17/16 08/17/16 16:30 18:15 Carbonic Acid 1.93 H HCO3/H2CO3 Ratio 19:1 ABG pH 7.38 ABG pCO2 64.1 H ABG pO2 78.2 L ABG HCO3 36.9 H ABG O2 Saturation 94.9 ABG Base Excess 9.7 FiO2 50% Potassium 4.5 08/16/16 08/16/16 08/16/16 05:02 05:02 13:10 Creatine Kinase 46 58 CK-MB (CK-2) 1.48 Troponin I 0.039 08/16/16 08/16/16 08/16/16 13:10 17:12 17:12 Creatine Kinase 65 CK-MB (CK-2) 1.77 Troponin I 0.042 0.038 08/16/16 08/16/16 08/17/16 20:59 20:59 03:04 Creatine Kinase 68 66 CK-MB (CK-2) Troponin I 0.039 08/17/16 03:04 Creatine Kinase CK-MB (CK-2) Troponin I 0.035 Impressions: Chest X-Ray 08/15/16 18:57 IMPRESSION: NO ACUTE RADIOGRAPHIC FINDING IN THE CHEST. Assessment & Plan - Diagnosis (1) Acute on chronic respiratory failure with hypoxemia Is this a current diagnosis for this admission?: Yes (2) COPD with exacerbation Is this a current diagnosis for this admission?: Yes (3) Debility Is this a current diagnosis for this admission?: Yes (4) Hyperkalemia Is this a current diagnosis for this admission?: Yes (5) Diabetes mellitus Qualifiers: Diabetes mellitus type: type 2 Diabetes mellitus complication status: with hyperglycemia Diabetes mellitus intermediate insulin use: without intermediate use Qualified Code(s): E11.65 - Type 2 diabetes mellitus with hyperglycemia; Z79.4 - alf (current) use of insulin Is this a current diagnosis for this admission?: Yes (6) Hypothyroid Qualifiers: Hypothyroidism type: unspecified Qualified Code(s): E03.9 - Hypothyroidism, unspecified Is this a current diagnosis for this admission?: Yes (7) Left ventricular diastolic dysfunction Is this a current diagnosis for this admission?: Yes (8) Hypertension Qualifiers: Hypertension type: essential hypertension Qualified Code(s): I10 - Essential (primary) hypertension Is this a current diagnosis for this admission?: Yes (9) Hyperlipidemia Qualifiers: Hyperlipidemia type: unspecified Qualified Code(s): E78.5 - Hyperlipidemia, unspecified Is this a current diagnosis for this admission?: Yes (10) Anxiety Is this a current diagnosis for this admission?: Yes (11) Obstructive sleep apnea Is this a current diagnosis for this admission?: Yes - Time Time Spent with patient: 25-34 minutes - Plan Summary Plan Summary: We will obtain another chest x-ray. We will try to arrange for home BiPAP with assortment planner. Patient will go to subacute rehabilitation and has a bed offer. We will consult pulmonary for further evaluation. We will decrease the FiO2 to 40%. I will give the patient as needed Ativan every 6 hours for anxiety. Continue supportive care. Patient when PCO2 is low is fully awake as reported by staff.
[2016-08-18] MEDS: NORMAL SALINE 1000 ML 1,000 ML IV PRN (12:52)
[2016-08-18] MEDS: LORAZEPAM INJ 2 MG/1 ML VIAL IV PRN (18:23)
--- NOTE | 2016-08-18 19:46 | PDOC CONSULTATION ---
Consultation Consult Date: 08/18/16 Attending physician:: LIA FLORES Consult reason:: acute/chronic hypoxic;hypercapnic resp fail History of Present Illness Admission Date/PCP: 08/15/16 21:23 History of Present Illness: NIELS ALSTON is a 75 year old female with a history of COPD with home O2 dependence, chronic bronchitis, obstructive sleep apnea, anxiety, diabetes and persistent tobacco dependence. Who was just discharged on August 11 for the above having recurrent symptoms prompting her to seek evaluation emergency room where she's found to be tachypneic and tachycardic found to have a blood gas notable for hypercapnic respiratory failure with a PCO2 over 78 she started on BiPAP and referred to the hospitalist for admission. Patient required Ativan's for severe agitation and is subsequently unable to cooperate with history and exam. Patient unable by virtue of mental status to detail history curent or past Past Medical History Cardiac Medical History: Reports: Congestive Heart Failure, Hyperlipidema, Hypertension Pulmonary Medical History: Reports: Chronic Obstructive Pulmonary Disease (COPD) , Sleep Apnea Denies: Tuberculosis Endocrine Medical History: Reports: Diabetes Mellitus Type 2, Hypothyroidism Musculoskeltal Medical History: Reports: Arthritis Psychiatric Medical History: Reports: General Anxiety Disorder, Tobacco Dependency Denies: Depression Past Surgical History Past Surgical History: Reports: Hysterectomy, Vascular Surgery Social History Smoking Status: Current Every Day Smoker Frequency of Alcohol Use: None Hx Recreational Drug Use: No Drugs: None Hx Prescription Drug Abuse: No - Advance Directive Resuscitation Status: Do Not Resuscitate Family History Family History: Malignancy - Mother of a complication, father of COPD, both siblings of cancer, Other Parental Family History Reviewed: No Children Family History Reviewed: No Sibling(s) Family History Reviewed.: No Medication/Allergy Home Medications: Budesonide/Formoterol Fumarate [Symbicort 160-4.5 Mcg Inhaler] 2 puff IH BID Acetaminophen [Tylenol 325 mg Tablet] 650 mg PO Q4HP PRN tablet 07/20/16 Albuterol Sulfate [Ventolin 0.083% Neb 2.5 mg/3 mL Ampul] 2.5 mg NEB Q6HP PRN # 60 vial.neb 07/20/16 Levothyroxine Sodium [Synthroid] 175 mcg PO DAILY #30 tablet 07/20/16 Lisinopril [Prinivil 10 mg Tablet] 10 mg PO DAILY #30 tablet 07/20/16 Metoprolol Succinate [Toprol Xl 25 mg Tab.sr] 25 mg PO DAILY #30 tab.sr.24h Furosemide [Lasix 20 mg Tablet] 20 mg PO QAM #30 tablet 08/11/16 Aspirin [Ecotrin 81 mg EC Tablet] 81 mg PO DAILY #30 tabec 08/12/16 Gemfibrozil [Lopid 600 mg Tablet] 600 mg PO BID #60 tab 08/12/16 Isosorbide Mononitrate [Imdur 30 mg Tablet.er] 30 mg PO DAILY #30 tab.er.24h Rosuvastatin Calcium [Crestor] 40 mg PO QHS #30 tab 08/12/16 Fenofibrate Nanocrystallized [Fenofibrate] 08/16/16 Fenofibrate Nanocrystallized [Fenofibrate] 145 mg PO DAILY 08/16/16 Glipizide [Glipizide Xl] 5 mg PO BID 08/16/16 Metformin HCl [Glucophage] 500 mg PO BID 08/16/16 Allergies/Adverse Reactions: No Known Drug Allergies Allergy (Verified 07/16/16 12:01) Review of Systems ROS unobtainable: Due to mental status Physical Exam Vital Signs: Temp Pulse Resp BP Pulse Ox 97.6 F 106 H 26 H 139/70 H 94 08/18/16 15:41 08/18/16 15:41 08/18/16 15:41 08/18/16 15:41 08/18/16 15:41 Intake & Output 08/17/16 08/18/16 08/19/16 06:59 06:59 06:59 Intake Total 1252 2061 942 Output Total 0 Balance 1252 2061 942 Weight 109 kg 108.7 kg General appearance: PRESENT: mild distress, obese Head exam: PRESENT: atraumatic, normocephalic Eye exam: PRESENT: conjunctiva pale Mouth exam: PRESENT: dry mucosa, tongue midline, other - bipap mask in place Neck exam: ABSENT: carotid bruit, JVD, lymphadenopathy, thyromegaly Respiratory exam: PRESENT: decreased breath sounds, prolonged expiratory phas, rhonchi, symmetrical, wheezes Cardiovascular exam: PRESENT: irregular rhythm Pulses: PRESENT: normal radial pulses GI/Abdominal exam: PRESENT: normal bowel sounds, soft. ABSENT: distended, guarding, mass, organolmegaly, rebound, tenderness Rectal exam: PRESENT: deferred Gentrourinary exam: PRESENT: indwelling catheter Extremities exam: PRESENT: +1 edema Neurological exam: PRESENT: other - obtunded Skin exam: PRESENT: dry, pallor Results Laboratory Results: 08/17/16 03:04 08/17/16 18:15 08/16/16 08/16/16 08/16/16 05:02 05:02 13:10 Creatine Kinase 46 58 CK-MB (CK-2) 1.48 Troponin I 0.039 08/16/16 08/16/16 08/16/16 13:10 17:12 17:12 Creatine Kinase 65 CK-MB (CK-2) 1.77 Troponin I 0.042 0.038 08/16/16 08/16/16 08/17/16 20:59 20:59 03:04 Creatine Kinase 68 66 CK-MB (CK-2) Troponin I 0.039 08/17/16 03:04 Creatine Kinase CK-MB (CK-2) Troponin I 0.035 Impressions: Chest X-Ray 08/18/16 00:00 IMPRESSION: No acute findings Assessment & Plan - Diagnosis (1) Acute on chronic respiratory failure with hypoxemia Is this a current diagnosis for this admission?: YesPlan: bipap supplemental O2 (2) COPD with exacerbation Is this a current diagnosis for this admission?: YesPlan: bronchodialator therapy (3) Obstructive sleep apnea Is this a current diagnosis for this admission?: YesPlan: patient will most likely be NIPPV dependent indefinitely (4) Tobacco dependence Is this a current diagnosis for this admission?: YesPlan: transdermal nicotine (5) Agitation requiring sedation protocol Is this a current diagnosis for this admission?: YesPlan: ativan was initiated would like to add repiridol less resp deprssion - Time Time Spent: 50 to 70 Minutes
[2016-08-18] MEDS ORDERED: RISPERIDONE 0.25 MG TABLET PO ONE (20:00)
[2016-08-19] MEDS: LORAZEPAM INJ 2 MG/1 ML VIAL IV PRN (01:04)
[2016-08-19] MEDS: IPRATROPIUM/ALBUTEROL 0.5-2.5 MG/3 ML AMPUL NEB SCH ×5 (02:31→20:33)
[2016-08-19] MEDS: METOPROLOL TARTRATE PF/INJ 5 MG/5 ML SDV IV SCH ×4 (02:51→22:22)
[2016-08-19] MEDS: HEPARIN SOD (PORCINE) 5,000 UNIT/ML 1 ML SYRINGE SUBCUT SCH ×3 (05:20→22:10)
--- NOTE | 2016-08-19 08:51 | PDOC PROGRESS REPORT ---
Subjective Progress Note for:: 08/19/16 Subjective:: Patient remained on BiPAP. Patient is still lethargic. Evaluated by pulmonary yesterday. No reported temperature spikes, nausea or vomiting , or worsening respiratory distress. She however has intermittent restlessness and agitation. Patient remained in soft restraints due to agitation and encephalopathy brought about by hypercarbia. Physical Exam Vital Signs: Temp Pulse Resp BP Pulse Ox 97.3 F 124 H 23 H 119/73 97 08/19/16 03:12 08/19/16 07:00 08/19/16 03:33 08/19/16 03:12 08/19/16 03:12 Intake & Output 08/18/16 08/19/16 08/20/16 06:59 06:59 06:59 Intake Total 2060 180 Output Total 0 Balance 2060 180 Weight 108.7 kg 108.6 kg General appearance: PRESENT: morbidly obese Head exam: PRESENT: normocephalic Eye exam: PRESENT: conjunctiva pink Mouth exam: PRESENT: moist, neck supple Neck exam: ABSENT: JVD Respiratory exam: PRESENT: decreased breath sounds - Bilateral, wheezes - Mild bilateral. ABSENT: rhonchi Cardiovascular exam: PRESENT: RRR, tachycardia. ABSENT: gallop GI/Abdominal exam: PRESENT: hypoactive bowel sounds, soft. ABSENT: tenderness Extremities exam: ABSENT: pedal edema Neurological exam: PRESENT: other - Occasionally responds by shaking had or nodding. Psychiatric exam: PRESENT: agitated - Mildly Skin exam: PRESENT: dry, warm. ABSENT: cyanosis Results Laboratory Results: 08/17/16 03:04 08/17/16 18:15 08/16/16 08/16/16 08/16/16 05:02 05:02 13:10 Creatine Kinase 46 58 CK-MB (CK-2) 1.48 Troponin I 0.039 08/16/16 08/16/16 08/16/16 13:10 17:12 17:12 Creatine Kinase 65 CK-MB (CK-2) 1.77 Troponin I 0.042 0.038 08/16/16 08/16/16 08/17/16 20:59 20:59 03:04 Creatine Kinase 68 66 CK-MB (CK-2) Troponin I 0.039 08/17/16 03:04 Creatine Kinase CK-MB (CK-2) Troponin I 0.035 Impressions: Chest X-Ray 08/18/16 00:00 IMPRESSION: No acute findings Assessment & Plan - Diagnosis (1) Acute on chronic respiratory failure with hypoxemia Is this a current diagnosis for this admission?: Yes (2) COPD with exacerbation Is this a current diagnosis for this admission?: Yes (3) Debility Is this a current diagnosis for this admission?: Yes (4) Hyperkalemia Is this a current diagnosis for this admission?: Yes (5) Diabetes mellitus Qualifiers: Diabetes mellitus type: type 2 Diabetes mellitus complication status: with hyperglycemia Diabetes mellitus edge stainer insulin use: without edge stainer use Qualified Code(s): E11.65 - Type 2 diabetes mellitus with hyperglycemia; 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 Is this a current diagnosis for this admission?: Yes (6) Hypothyroid Qualifiers: Hypothyroidism type: unspecified Qualified Code(s): E03.9 - Hypothyroidism, unspecified Is this a current diagnosis for this admission?: Yes (7) Left ventricular diastolic dysfunction Is this a current diagnosis for this admission?: Yes (8) Hypertension Qualifiers: Hypertension type: essential hypertension Qualified Code(s): I10 - Essential (primary) hypertension Is this a current diagnosis for this admission?: Yes (9) Hyperlipidemia Qualifiers: Hyperlipidemia type: unspecified Qualified Code(s): E78.5 - Hyperlipidemia, unspecified Is this a current diagnosis for this admission?: Yes (10) Anxiety Is this a current diagnosis for this admission?: Yes (11) Obstructive sleep apnea Is this a current diagnosis for this admission?: Yes - Time Time Spent with patient: 25-34 minutes - Plan Summary Plan Summary: We will discontinue Ativan. Begin Risperdal. We will begin steroids and increase bronchodilators as patient is having some mild wheezing today. Continue ventilatory support. Arrange for home BiPAP. Continue supportive care. For long-term placement or subacute rehabilitation placement.
[2016-08-19] MEDS: DOXYCYCLINE HYCLATE 100 MG in DEXTROSE 5%-WATER 250 ML IV SCH ×2 (09:28→22:22)
[2016-08-19] MEDS ORDERED: RISPERIDONE 0.25 MG TABLET PO SCH (10:00)
[2016-08-19] MEDS ORDERED: IPRATROPIUM/ALBUTEROL 0.5-2.5 MG/3 ML AMPUL NEB PRN (10:45)
[2016-08-19] MEDS ORDERED: METHYLPREDNISOLONE INJ 125 MG/2 ML SDV IV ONE (10:45)
[2016-08-19] MEDS ORDERED: IPRATROPIUM/ALBUTEROL 0.5-2.5 MG/3 ML AMPUL NEB SCH (12:00)
[2016-08-19] MEDS: RISPERIDONE 0.25 MG TABLET PO SCH ×2 (12:12→18:31)
[2016-08-19] MEDS: METHYLPREDNISOLONE INJ 125 MG/2 ML SDV IV SCH ×2 (18:31→22:22)
[2016-08-20] MEDS: IPRATROPIUM/ALBUTEROL 0.5-2.5 MG/3 ML AMPUL NEB SCH ×6 (00:50→20:14)
[2016-08-20] MEDS: METOPROLOL TARTRATE PF/INJ 5 MG/5 ML SDV IV SCH ×2 (03:44→09:12)
[2016-08-20] MEDS: NORMAL SALINE 1000 ML 1,000 ML IV PRN (03:54)
[2016-08-20] MEDS: HEPARIN SOD (PORCINE) 5,000 UNIT/ML 1 ML SYRINGE SUBCUT SCH ×3 (05:05→22:14)
[2016-08-20] MEDS: METHYLPREDNISOLONE INJ 125 MG/2 ML SDV IV SCH ×3 (05:06→22:25)
[2016-08-20] MEDS: DOXYCYCLINE HYCLATE 100 MG in DEXTROSE 5%-WATER 250 ML IV SCH ×2 (09:13→22:25)
[2016-08-20] MEDS: RISPERIDONE 0.25 MG TABLET PO SCH ×3 (09:13→19:26)
--- NOTE | 2016-08-20 09:40 | PDOC PROGRESS REPORT ---
Subjective Progress Note for:: 08/20/16 Subjective:: Patient is awake and alert this morning. On nasal cannula oxygen. No reported temperature spikes or respiratory distress. Patient engaging in conversation. Denies shortness of breath or diarrhea. Patient states she has COPD but she is not on BiPAP at home. No abdominal pain nausea or vomiting. Physical Exam Vital Signs: Temp Pulse Resp BP Pulse Ox 98.1 F 101 H 18 167/65 H 95 08/20/16 03:39 08/20/16 07:56 08/20/16 07:56 08/20/16 03:39 08/20/16 04:48 Intake & Output 08/19/16 08/20/16 08/21/16 06:59 06:59 06:59 Intake Total 1801979 Balance 1801979 Weight 108.6 kg 109.1 kg General appearance: PRESENT: no acute distress, morbidly obese Head exam: PRESENT: normocephalic Eye exam: PRESENT: conjunctiva pink, EOMI Mouth exam: PRESENT: moist, neck supple Neck exam: ABSENT: JVD Respiratory exam: PRESENT: rhonchi - few, bilateral, unlabored. ABSENT: wheezes Cardiovascular exam: PRESENT: RRR. ABSENT: gallop GI/Abdominal exam: PRESENT: normal bowel sounds, soft, other - Obese. ABSENT: tenderness Extremities exam: ABSENT: pedal edema Neurological exam: PRESENT: alert, awake, oriented to situation Skin exam: PRESENT: dry, warm. ABSENT: cyanosis Results Laboratory Results: 08/17/16 03:04 08/17/16 18:15 08/16/16 08/16/16 08/16/16 05:02 05:02 13:10 Creatine Kinase 46 58 CK-MB (CK-2) 1.48 Troponin I 0.039 08/16/16 08/16/16 08/16/16 13:10 17:12 17:12 Creatine Kinase 65 CK-MB (CK-2) 1.77 Troponin I 0.042 0.038 08/16/16 08/16/16 08/17/16 20:59 20:59 03:04 Creatine Kinase 68 66 CK-MB (CK-2) Troponin I 0.039 08/17/16 03:04 Creatine Kinase CK-MB (CK-2) Troponin I 0.035 Impressions: Chest X-Ray 08/18/16 00:00 IMPRESSION: No acute findings Assessment & Plan - Diagnosis (1) Acute on chronic respiratory failure with hypoxemia Is this a current diagnosis for this admission?: Yes (2) COPD with exacerbation Is this a current diagnosis for this admission?: Yes (3) Debility Is this a current diagnosis for this admission?: Yes (4) Hyperkalemia Is this a current diagnosis for this admission?: Yes (5) Diabetes mellitus Qualifiers: Diabetes mellitus type: type 2 Diabetes mellitus complication status: with hyperglycemia Diabetes mellitus dedicated intermodal truck driver insulin use: without dedicated intermodal truck driver use Qualified Code(s): E11.65 - Type 2 diabetes mellitus with hyperglycemia; 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 Is this a current diagnosis for this admission?: Yes (6) Hypothyroid Qualifiers: Hypothyroidism type: unspecified Qualified Code(s): E03.9 - Hypothyroidism, unspecified Is this a current diagnosis for this admission?: Yes (7) Left ventricular diastolic dysfunction Is this a current diagnosis for this admission?: Yes (8) Hypertension Qualifiers: Hypertension type: essential hypertension Qualified Code(s): I10 - Essential (primary) hypertension Is this a current diagnosis for this admission?: Yes (9) Hyperlipidemia Qualifiers: Hyperlipidemia type: unspecified Qualified Code(s): E78.5 - Hyperlipidemia, unspecified Is this a current diagnosis for this admission?: Yes (10) Anxiety Is this a current diagnosis for this admission?: Yes (11) Obstructive sleep apnea Is this a current diagnosis for this admission?: Yes - Time Time Spent with patient: 25-34 minutes Anticipated discharge: SNF Within: within 48 hours - Plan Summary Plan Summary: We will continue nebulizers and steroids. Continue nasal cannula oxygen. We will try to resume her oral medications. In the meantime discontinue the restraints. Continue supportive care. Physical therapy.
[2016-08-20] MEDS: METOPROLOL SUCCINATE 25 MG TAB.SR.24H PO SCH (10:20)
[2016-08-20] MEDS ORDERED: (PENDING PHARMACY ID) (Metformin Hcl [Glucophage] 500 MG) PO SCH (11:15)
[2016-08-20] MEDS ORDERED: GLIPIZIDE 5 MG PO SCH (11:15)
[2016-08-20] MEDS ORDERED: GLIPIZIDE XL 5 MG TAB.ER.24 PO ONE (12:30)
[2016-08-20] MEDS ORDERED: METFORMIN HCL 500 MG TABLET PO ONE (12:30)
[2016-08-20] MEDS: INSULIN LISPRO 100 UNIT/ML 3 ML VIAL SUBCUT PRN ×2 (12:36→23:41)
[2016-08-20] MEDS: ACETAZOLAMIDE 250 MG TABLET PO SCH ×2 (15:38→22:25)
[2016-08-20] MEDS: METFORMIN HCL 500 MG TABLET PO SCH (19:23)
[2016-08-20] MEDS: DOCUSATE SODIUM 100 MG CAPSULE PO SCH (19:23)
[2016-08-20] MEDS: GLIPIZIDE XL 5 MG TAB.ER.24 PO SCH (19:25)
[2016-08-21] MEDS: IPRATROPIUM/ALBUTEROL 0.5-2.5 MG/3 ML AMPUL NEB SCH ×6 (00:41→21:41)
[2016-08-21] MEDS: HEPARIN SOD (PORCINE) 5,000 UNIT/ML 1 ML SYRINGE SUBCUT SCH ×3 (05:50→21:46)
[2016-08-21] MEDS: ACETAZOLAMIDE 250 MG TABLET PO SCH ×3 (05:55→21:47)
[2016-08-21] MEDS: METHYLPREDNISOLONE INJ 125 MG/2 ML SDV IV SCH (05:55)
[2016-08-21] MEDS: GLIPIZIDE XL 5 MG TAB.ER.24 PO SCH ×2 (10:15→17:42)
[2016-08-21] MEDS: DOCUSATE SODIUM 100 MG CAPSULE PO SCH ×2 (10:15→17:42)
[2016-08-21] MEDS: RISPERIDONE 0.25 MG TABLET PO SCH ×2 (10:15→17:43)
[2016-08-21] MEDS: METFORMIN HCL 500 MG TABLET PO SCH ×2 (10:15→17:42)
[2016-08-21] MEDS: INSULIN LISPRO 100 UNIT/ML 3 ML VIAL SUBCUT PRN (10:16)
[2016-08-21] MEDS: METOPROLOL SUCCINATE 25 MG TAB.SR.24H PO SCH (10:16)
[2016-08-21] MEDS: DOXYCYCLINE HYCLATE 100 MG in DEXTROSE 5%-WATER 250 ML IV SCH (10:27)
--- NOTE | 2016-08-21 10:37 | PDOC PROGRESS REPORT ---
Subjective Progress Note for:: 08/21/16 Subjective:: Patient continues to get better. Shortness of breath is much better. Patient has tolerated being off the BiPAP. No chills or fever or respiratory distress. No chest pain. No diarrhea. Physical Exam Vital Signs: Temp Pulse Resp BP Pulse Ox 97.6 F 82 18 142/58 H 100 08/21/16 07:54 08/21/16 08:26 08/21/16 08:26 08/21/16 07:54 08/21/16 07:54 Intake & Output 08/20/16 08/21/16 08/22/16 06:59 06:59 06:59 Intake Total 1979 1848 Balance 1979 1848 Weight 109.1 kg 109.1 kg General appearance: PRESENT: no acute distress, cooperative, obese, other - Nasal cannula oxygen Head exam: PRESENT: normocephalic Eye exam: PRESENT: EOMI Mouth exam: PRESENT: moist, neck supple Neck exam: ABSENT: JVD Respiratory exam: PRESENT: rhonchi - few bilateral, unlabored. ABSENT: wheezes Cardiovascular exam: PRESENT: RRR. ABSENT: gallop GI/Abdominal exam: PRESENT: normal bowel sounds, soft. ABSENT: tenderness Extremities exam: ABSENT: pedal edema Neurological exam: PRESENT: alert, awake, oriented to situation Skin exam: PRESENT: dry, warm. ABSENT: cyanosis Results Laboratory Results: 08/17/16 03:04 08/17/16 18:15 08/16/16 08/16/16 08/16/16 05:02 05:02 13:10 Creatine Kinase 46 58 CK-MB (CK-2) 1.48 Troponin I 0.039 08/16/16 08/16/16 08/16/16 13:10 17:12 17:12 Creatine Kinase 65 CK-MB (CK-2) 1.77 Troponin I 0.042 0.038 08/16/16 08/16/16 08/17/16 20:59 20:59 03:04 Creatine Kinase 68 66 CK-MB (CK-2) Troponin I 0.039 08/17/16 03:04 Creatine Kinase CK-MB (CK-2) Troponin I 0.035 Impressions: Chest X-Ray 08/18/16 00:00 IMPRESSION: No acute findings Assessment & Plan - Diagnosis (1) Acute on chronic respiratory failure with hypoxemia Is this a current diagnosis for this admission?: Yes (2) COPD with exacerbation Is this a current diagnosis for this admission?: Yes (3) Debility Is this a current diagnosis for this admission?: Yes (4) Hyperkalemia Is this a current diagnosis for this admission?: Yes (5) Diabetes mellitus Qualifiers: Diabetes mellitus type: type 2 Diabetes mellitus complication status: with hyperglycemia Diabetes mellitus [facility] insulin use: without [facility] use Qualified Code(s): E11.65 - Type 2 diabetes mellitus with hyperglycemia; 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 Is this a current diagnosis for this admission?: Yes (6) Hypothyroid Qualifiers: Hypothyroidism type: unspecified Qualified Code(s): E03.9 - Hypothyroidism, unspecified Is this a current diagnosis for this admission?: Yes (7) Left ventricular diastolic dysfunction Is this a current diagnosis for this admission?: Yes (8) Hypertension Qualifiers: Hypertension type: essential hypertension Qualified Code(s): I10 - Essential (primary) hypertension Is this a current diagnosis for this admission?: Yes (9) Hyperlipidemia Qualifiers: Hyperlipidemia type: unspecified Qualified Code(s): E78.5 - Hyperlipidemia, unspecified Is this a current diagnosis for this admission?: Yes (10) Anxiety Is this a current diagnosis for this admission?: Yes (11) Obstructive sleep apnea Is this a current diagnosis for this admission?: Yes - Time Time Spent with patient: 15-24 minutes - Plan Summary Plan Summary: We are going to resume patient's home oral medications except the NORBERTO inhibitor due to hyperkalemia. We will transition to oral steroids. I will put the patient on Pulmicort nebulizers. Continue supportive care. We will transfer to subacute rehabilitation in the morning.
[2016-08-21] MEDS ORDERED: ONDANSETRON 4 MG TAB.RAPDIS PO PRN (14:19)
[2016-08-21] MEDS: BUDESONIDE NEB 0.5 MG/2 ML AMPUL NEB SCH (21:41)
[2016-08-21] MEDS: DOXYCYCLINE HYCLATE 100 MG TABLET PO SCH (21:47)
[2016-08-22] MEDS: IPRATROPIUM/ALBUTEROL 0.5-2.5 MG/3 ML AMPUL NEB SCH ×6 (00:32→21:09)
[2016-08-22] MEDS: HEPARIN SOD (PORCINE) 5,000 UNIT/ML 1 ML SYRINGE SUBCUT SCH ×3 (06:16→22:41)
[2016-08-22] MEDS: ACETAZOLAMIDE 250 MG TABLET PO SCH ×3 (06:16→22:40)
[2016-08-22] MEDS: BUDESONIDE NEB 0.5 MG/2 ML AMPUL NEB SCH ×2 (08:22→21:09)
[2016-08-22] MEDS: METFORMIN HCL 500 MG TABLET PO SCH ×2 (09:39→17:15)
[2016-08-22] MEDS: RISPERIDONE 0.25 MG TABLET PO SCH ×2 (09:39→17:15)
[2016-08-22] MEDS: ASPIRIN 81 MG TABLET, ENT COATED PO SCH (09:39)
[2016-08-22] MEDS: LEVOTHYROXINE SODIUM 0.075 MG TABLET PO SCH (09:40)
[2016-08-22] MEDS: DOCUSATE SODIUM 100 MG CAPSULE PO SCH ×2 (09:40→17:16)
[2016-08-22] MEDS: METOPROLOL SUCCINATE 25 MG TAB.SR.24H PO SCH (09:40)
[2016-08-22] MEDS: GLIPIZIDE XL 5 MG TAB.ER.24 PO SCH (09:41)
[2016-08-22] MEDS: DOXYCYCLINE HYCLATE 100 MG TABLET PO SCH ×2 (09:41→22:40)
[2016-08-22] MEDS: LEVOTHYROXINE SODIUM 0.1 MG TABLET PO SCH (09:41)
[2016-08-22] MEDS ORDERED: (PENDING PHARMACY ID) (Levothyroxine Sodium [Synthroid] 175 MCG) PO SCH (10:00)
[2016-08-22] MEDS ORDERED: PREDNISONE 20 MG TABLET PO SCH (10:00)
--- NOTE | 2016-08-22 11:14 | PDOC PROGRESS REPORT ---
Subjective Progress Note for:: 08/22/16 Subjective:: Patient continues to get better. No shortness of breath and is off BiPAP for a few days now. No chills or fever or respiratory distress. No chest pain. No diarrhea. No nausea or vomiting nor abdominal pain. Feels generally weak overall. Lost IV site yesterday and now on oral medications. All of IV fluids as well. Physical Exam Vital Signs: Temp Pulse Resp BP Pulse Ox 97.6 F 98 16 124/41 L 96 08/22/16 08:57 08/22/16 08:57 08/22/16 08:57 08/22/16 08:57 08/22/16 08:57 Intake & Output 08/21/16 08/22/16 08/23/16 06:59 06:59 06:59 Intake Total 1849 940 Balance 1849 940 Weight 109.1 kg 95.6 kg General appearance: PRESENT: no acute distress, cooperative, obese Head exam: PRESENT: normocephalic Eye exam: PRESENT: EOMI Mouth exam: PRESENT: moist Neck exam: ABSENT: JVD Respiratory exam: PRESENT: clear to auscultation jessenia, unlabored. ABSENT: accessory muscle use Cardiovascular exam: PRESENT: RRR. ABSENT: gallop GI/Abdominal exam: PRESENT: normal bowel sounds, soft. ABSENT: tenderness Extremities exam: ABSENT: pedal edema Neurological exam: PRESENT: alert, awake, oriented to situation Skin exam: PRESENT: dry, warm. ABSENT: cyanosis Results Laboratory Results: 08/17/16 03:04 08/17/16 18:15 08/16/16 08/16/16 08/16/16 05:02 05:02 13:10 Creatine Kinase 46 58 CK-MB (CK-2) 1.48 Troponin I 0.039 08/16/16 08/16/16 08/16/16 13:10 17:12 17:12 Creatine Kinase 65 CK-MB (CK-2) 1.77 Troponin I 0.042 0.038 08/16/16 08/16/16 08/17/16 20:59 20:59 03:04 Creatine Kinase 68 66 CK-MB (CK-2) Troponin I 0.039 08/17/16 03:04 Creatine Kinase CK-MB (CK-2) Troponin I 0.035 Impressions: Chest X-Ray 08/18/16 00:00 IMPRESSION: No acute findings Assessment & Plan - Diagnosis (1) Acute on chronic respiratory failure with hypoxemia Is this a current diagnosis for this admission?: Yes (2) COPD with exacerbation Is this a current diagnosis for this admission?: Yes (3) Debility Is this a current diagnosis for this admission?: Yes (4) Hyperkalemia Is this a current diagnosis for this admission?: Yes (5) Diabetes mellitus Qualifiers: Diabetes mellitus type: type 2 Diabetes mellitus complication status: with hyperglycemia Diabetes mellitus care home insulin use: without care home use Qualified Code(s): E11.65 - Type 2 diabetes mellitus with hyperglycemia; Z79.4 - senior living (current) use of insulin Is this a current diagnosis for this admission?: Yes (6) Hypothyroid Qualifiers: Hypothyroidism type: unspecified Qualified Code(s): E03.9 - Hypothyroidism, unspecified Is this a current diagnosis for this admission?: Yes (7) Left ventricular diastolic dysfunction Is this a current diagnosis for this admission?: Yes (8) Hypertension Qualifiers: Hypertension type: essential hypertension Qualified Code(s): I10 - Essential (primary) hypertension Is this a current diagnosis for this admission?: Yes (9) Hyperlipidemia Qualifiers: Hyperlipidemia type: unspecified Qualified Code(s): E78.5 - Hyperlipidemia, unspecified Is this a current diagnosis for this admission?: Yes (10) Anxiety Is this a current diagnosis for this admission?: Yes (11) Obstructive sleep apnea Is this a current diagnosis for this admission?: Yes - Time Time Spent with patient: 15-24 minutes - Plan Summary Plan Summary: Noted with hypoglycemia. We will discontinue glipizide but keep the metformin. Recheck CBC and basic metabolic panel in the morning. Decrease steroids. Continue bronchodilators. Continue nasal cannula oxygen. Patient does not need to be on BiPAP and can be transferred to rehabilitation when bed available. Continue physical therapy.
[2016-08-22] MEDS ORDERED: PREDNISONE 20 MG TABLET PO ONE (12:00)
--- NOTE | 2016-08-22 15:30 | PDOC TRANSFER SUMMARY ---
General - Admit/Disc Date/PCP Admission Date/Primary Care Provider: 08/15/16 21:23 Discharge Date: 08/22/16 - Discharge Diagnosis (1) Acute on chronic respiratory failure with hypoxemia Is this a current diagnosis for this admission?: Yes (2) COPD with exacerbation Is this a current diagnosis for this admission?: Yes (3) Debility Is this a current diagnosis for this admission?: Yes (4) Hyperkalemia Is this a current diagnosis for this admission?: Yes (5) Diabetes mellitus Is this a current diagnosis for this admission?: Yes (6) Hypothyroid Is this a current diagnosis for this admission?: Yes (7) Left ventricular diastolic dysfunction Is this a current diagnosis for this admission?: Yes (8) Hypertension Is this a current diagnosis for this admission?: Yes (9) Hyperlipidemia Is this a current diagnosis for this admission?: Yes (10) Anxiety Is this a current diagnosis for this admission?: Yes (11) Obstructive sleep apnea Is this a current diagnosis for this admission?: Yes - Additional Information Resuscitation Status: Do Not Resuscitate Discharge Diet: Cardiac - low-fat low-salt, Diabetic - no concentrated sweets Discharge Activity: Activity As Tolerated, Balance Activity w/Rest, Slowly Increase Activity Home Medications: Acetaminophen [Tylenol 325 mg Tablet] 650 mg PO Q4HP PRN tablet 07/20/16 Levothyroxine Sodium [Synthroid] 175 mcg PO DAILY #30 tablet 07/20/16 Metoprolol Succinate [Toprol Xl 25 mg Tab.sr] 25 mg PO DAILY #30 tab.sr.24h Aspirin [Ecotrin 81 mg EC Tablet] 81 mg PO DAILY #30 tabec 08/12/16 Gemfibrozil [Lopid 600 mg Tablet] 600 mg PO BID #60 tab 08/12/16 Isosorbide Mononitrate [Imdur 30 mg Tablet.er] 30 mg PO DAILY #30 tab.er.24h Rosuvastatin Calcium [Crestor] 40 mg PO QHS #30 tab 08/12/16 Metformin HCl [Glucophage] 500 mg PO BID 08/16/16 Budesonide [Pulmicort Neb 0.5 mg/2 ml Ampul] 0.5 mg NEB RTQ12 ampul.neb Docusate Sodium [Colace 100 mg Capsule] 100 mg PO BID capsule 08/22/16 Doxycycline Hyclate [Vibramycin 100 mg Tablet] 100 mg PO Q12 tablet 08/22/16 Insulin Lispro [Humalog Insulin (Lispro) 100 unit/mL] 0 - 12 unit SUBCUT ACHSP PRN unit 08/22/16 Ipratropium/Albuterol Sulfate [Duoneb 3 ml Ampul] 3 ml NEB RTQ4 vial.neb Ipratropium/Albuterol Sulfate [Duoneb 3 ml Ampul] 3 ml NEB RTQ4HP PRN vial.neb 08/22/16 Prednisone [Sterapred Ds] 1 pkg PO ASDIR PRN 12 Days 08/22/16 Additional Information: Antibiotic to continue for 5 days. History of Present Illness Admission Date/PCP: 08/15/16 21:23 Patient complains of: Shortness of breath History of Present Illness: NIELS ALSTON is a 75 year old female with a history of COPD with home O2 dependence, chronic bronchitis, obstructive sleep apnea, anxiety, diabetes and persistent tobacco dependence. Who was just discharged on August 11 for the above having recurrent symptoms prompting her to seek evaluation emergency room where she's found to be tachypneic and tachycardic found to have a blood gas notable for hypercapnic respiratory failure with a PCO2 over 78 she started on BiPAP and referred to the hospitalist for admission. Patient required Ativan's for severe agitation and is subsequently unable to cooperate with history and exam. Patient unable by virtue of mental status to detail history curent or past Hospital Course Hospital Course: The patient was admitted to [facility]. The patient was maintained on BiPAP. Sedatives were held however where resumed back to the confusion and agitation. The patient apparently was having hypercarbia and persistent need for BiPAP. The patient reportedly repeatedly admitted and therefore was referred to the project planner for subacute rehabilitation. Family likewise report what the patient to be placed. Pulmonary was consulted. Patient tried on Risperdal instead of benzodiazepines. Patient continues to have altered mental status. Patient was maintained on BiPAP as well as bronchodilators and antibiotic and referred the project planner for home BiPAP as well. Patient eventually tried on intravenous steroid and subsequently started to improve from there. BiPAP was weaned and eventually was discontinued. The patient has been maintained on nasal cannula oxygen and oral medications were resumed. She was noted to be high. Glycemic at the beginning and therefore her glipizide and metformin was resumed. She developed hypoglycemia and therefore the glipizide was held she was just placed on sliding scale and continued on metformin. Physical therapy was instituted. Patient remains stable subsequently. Diet was advanced. The rest of the hospital stay is unremarkable. Physical Exam Vital Signs: Temp Pulse Resp BP Pulse Ox 97.6 F 83 20 124/41 L 96 08/22/16 08:57 08/22/16 11:28 08/22/16 11:28 08/22/16 08:57 08/22/16 11:28 Intake & Output 08/21/16 08/22/16 08/23/16 06:59 06:59 06:59 Intake Total 1849 940 Balance 1849 940 Weight 109.1 kg 95.6 kg General appearance: PRESENT: no acute distress, cooperative, other - On nasal cannula oxygen Head exam: PRESENT: normocephalic Eye exam: PRESENT: EOMI Mouth exam: PRESENT: moist, neck supple Neck exam: ABSENT: JVD Respiratory exam: PRESENT: decreased breath sounds, rhonchi - Occasional. ABSENT: wheezes Cardiovascular exam: PRESENT: RRR. ABSENT: gallop GI/Abdominal exam: PRESENT: normal bowel sounds, soft. ABSENT: tenderness Extremities exam: ABSENT: pedal edema Neurological exam: PRESENT: alert, awake, oriented to situation Skin exam: PRESENT: dry, warm. ABSENT: cyanosis Results Laboratory Results: 08/17/16 03:04 08/17/16 18:15 08/16/16 08/16/16 08/16/16 05:02 05:02 13:10 Creatine Kinase 46 58 CK-MB (CK-2) 1.48 Troponin I 0.039 08/16/16 08/16/16 08/16/16 13:10 17:12 17:12 Creatine Kinase 65 CK-MB (CK-2) 1.77 Troponin I 0.042 0.038 08/16/16 08/16/16 08/17/16 20:59 20:59 03:04 Creatine Kinase 68 66 CK-MB (CK-2) Troponin I 0.039 08/17/16 03:04 Creatine Kinase CK-MB (CK-2) Troponin I 0.035 Impressions: Chest X-Ray 08/18/16 00:00 IMPRESSION: No acute findings Transfer Plan - Disposition Transfer Plan: Transferred to nursing home facility for subacute rehabilitation - Time Spent with Patient Time spent with patient: Less than 30 Minutes Qualifiers PATEINT BEING DISCHARGED WITH ANY OF THE FOLLOWING DIAGNOSIS?: No Plan Discharge Plan: Follow-up with primary care physician in one week Time Spent: Less than 30 Minutes
[2016-08-22] MEDS: INSULIN LISPRO 100 UNIT/ML 3 ML VIAL SUBCUT PRN ×2 (17:15→22:40)
[2016-08-23] MEDS: IPRATROPIUM/ALBUTEROL 0.5-2.5 MG/3 ML AMPUL NEB SCH ×6 (00:16→20:47)
[2016-08-23] MEDS: ACETAZOLAMIDE 250 MG TABLET PO SCH ×3 (06:13→21:15)
[2016-08-23] MEDS: HEPARIN SOD (PORCINE) 5,000 UNIT/ML 1 ML SYRINGE SUBCUT SCH ×3 (06:14→21:16)
[2016-08-23 06:33] LABS: HEMATOCRIT 30.4 % (36.0-47.0); HEMOGLOBIN 10.4 g/dL (12.0-15.5); HGB HCT DIFFERENCE 0.8; MEAN CORPUSCULAR HEMOGLOBIN 30.6 pg (27.0-33.4); MEAN CORPUSCULAR HGB CONC 34.3 g/dL (32.0-36.0); MEAN CORPUSCULAR VOLUME 89 fl (80-97); RED BLOOD COUNT 3.41 10^6/uL (3.72-5.28); RED CELL DISTRIBUTION WIDTH 14.2 % (11.5-14.0); WHITE BLOOD COUNT 11.6 10^3/uL (4.0-10.5)
[2016-08-23 06:49] LABS: ANION GAP 8 (5-19); BLOOD UREA NITROGEN 21 mg/dL (7-20); CALCIUM 9.5 mg/dL (8.4-10.2); CARBON DIOXIDE 29 mmol/L (22-30); CHLORIDE 106 mmol/L (98-107); CREATININE RESULT 0.85 mg/dL (0.52-1.25); GLUCOSE 72 mg/dL (75-110); POTASSIUM 3.4 mmol/L (3.6-5.0); SODIUM 143.2 mmol/L (137-145)
[2016-08-23] MEDS: BUDESONIDE NEB 0.5 MG/2 ML AMPUL NEB SCH ×2 (07:35→20:47)
[2016-08-23] MEDS: METOPROLOL SUCCINATE 25 MG TAB.SR.24H PO SCH (09:25)
[2016-08-23] MEDS: RISPERIDONE 0.25 MG TABLET PO SCH ×2 (09:25→16:46)
[2016-08-23] MEDS: LEVOTHYROXINE SODIUM 0.075 MG TABLET PO SCH (09:25)
[2016-08-23] MEDS: DOXYCYCLINE HYCLATE 100 MG TABLET PO SCH ×2 (09:25→21:15)
[2016-08-23] MEDS: LEVOTHYROXINE SODIUM 0.1 MG TABLET PO SCH (09:25)
[2016-08-23] MEDS: METFORMIN HCL 500 MG TABLET PO SCH ×2 (09:26→16:45)
[2016-08-23] MEDS: DOCUSATE SODIUM 100 MG CAPSULE PO SCH ×2 (09:26→16:47)
[2016-08-23] MEDS: ASPIRIN 81 MG TABLET, ENT COATED PO SCH (09:26)
[2016-08-23] MEDS: PREDNISONE 20 MG TABLET PO SCH (09:26)
--- NOTE | 2016-08-23 13:05 | PDOC PROGRESS REPORT ---
Subjective Progress Note for:: 08/23/16 Subjective:: Denies any complaints. We are waiting on insurance approval for the patient to go to [facility] facility. Physical Exam Vital Signs: Temp Pulse Resp BP Pulse Ox 98.1 F 86 18 63/50 L 92 08/23/16 07:17 08/23/16 11:53 08/23/16 11:53 08/23/16 07:17 08/23/16 11:53 Intake & Output 08/22/16 08/23/16 08/24/16 06:59 06:59 06:59 Intake Total 940 1176 Output Total 2 Balance 940 1174 Weight 95.6 kg 96.3 kg General appearance: PRESENT: no acute distress Eye exam: PRESENT: conjunctiva pink Mouth exam: PRESENT: moist, tongue midline Neck exam: ABSENT: JVD Respiratory exam: PRESENT: clear to auscultation jessenia. ABSENT: rales, rhonchi, wheezes Cardiovascular exam: PRESENT: RRR. ABSENT: diastolic murmur, rubs, systolic murmur GI/Abdominal exam: PRESENT: normal bowel sounds, soft. ABSENT: distended, guarding, mass, organolmegaly, rebound, tenderness Extremities exam: ABSENT: calf tenderness, clubbing, pedal edema Neurological exam: PRESENT: alert, awake, oriented to person, oriented to place , oriented to time, oriented to situation Psychiatric exam: PRESENT: appropriate affect Skin exam: PRESENT: dry, intact, warm. ABSENT: cyanosis, rash Results Laboratory Results: 08/23/16 05:55 08/23/16 05:55 08/23/16 08/23/16 05:55 05:55 WBC 11.6 H RBC 3.41 L Hgb 10.4 L Hct 30.4 L MCV 89 MCH 30.6 MCHC 34.3 RDW 14.2 H Plt Count 137 L Sodium 143.2 Potassium 3.4 L Chloride 106 Carbon Dioxide 29 Anion Gap 8 BUN 21 H Creatinine 0.85 Est GFR ( Amer) > 60 Est GFR (Non-Af Amer) > 60 Glucose 72 L Calcium 9.5 08/16/16 08/16/16 08/16/16 05:02 05:02 13:10 Creatine Kinase 46 58 CK-MB (CK-2) 1.48 Troponin I 0.039 08/16/16 08/16/16 08/16/16 13:10 17:12 17:12 Creatine Kinase 65 CK-MB (CK-2) 1.77 Troponin I 0.042 0.038 08/16/16 08/16/16 08/17/16 20:59 20:59 03:04 Creatine Kinase 68 66 CK-MB (CK-2) Troponin I 0.039 08/17/16 03:04 Creatine Kinase CK-MB (CK-2) Troponin I 0.035 Impressions: Chest X-Ray 08/18/16 00:00 IMPRESSION: No acute findings Assessment & Plan - Diagnosis (1) Acute on chronic respiratory failure with hypoxemia Is this a current diagnosis for this admission?: YesPlan: This was secondary to acute COPD exacerbation. She is improving and is ready for discharge. (2) Acute exacerbation of chronic bronchitis Is this a current diagnosis for this admission?: YesPlan: Secondary to acute COPD exacerbation. The patient is improving. Continue with prednisone and inhalers. (3) Anxiety Is this a current diagnosis for this admission?: YesPlan: Continue with Risperdal. (4) Hyperkalemia Is this a current diagnosis for this admission?: YesPlan: Resolved. (5) Hyperlipidemia Qualifiers: Hyperlipidemia type: unspecified Qualified Code(s): E78.5 - Hyperlipidemia, unspecified Is this a current diagnosis for this admission?: Yes (6) Hypertension Qualifiers: Hypertension type: essential hypertension Qualified Code(s): I10 - Essential (primary) hypertension Is this a current diagnosis for this admission?: YesPlan: Blood pressures have been fluctuating but have been relatively stable. The patient had a low blood pressure documented today but most likely was an error. (7) Obstructive sleep apnea Is this a current diagnosis for this admission?: YesPlan: Continue with CPAP (8) CHF (congestive heart failure) Qualifiers: Congestive heart failure type: diastolic Congestive heart failure chronicity: acute on chronic Qualified Code(s): I50.33 - Acute on chronic diastolic (congestive) heart failure Is this a current diagnosis for this admission?: YesPlan: Patient is currently euvolemic. 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 (10) Hypothyroid Qualifiers: Hypothyroidism type: unspecified Qualified Code(s): E03.9 - Hypothyroidism, unspecified Is this a current diagnosis for this admission?: YesPlan: Continue with Synthroid. - Time Time Spent with patient: 25-34 minutes - Inpatient Certification Medical Necessity: Need Close Monitoring Due to Risk of Patient Decompensation - Plan Summary Plan Summary: Patient is ready for discharge. Please see the discharge summary dictated yesterday. Awaiting [facility] facility bed
[2016-08-23] MEDS: INSULIN LISPRO 100 UNIT/ML 3 ML VIAL SUBCUT PRN (16:43)
[2016-08-24] MEDS: IPRATROPIUM/ALBUTEROL 0.5-2.5 MG/3 ML AMPUL NEB SCH ×3 (00:57→09:00)
[2016-08-24] MEDS: HEPARIN SOD (PORCINE) 5,000 UNIT/ML 1 ML SYRINGE SUBCUT SCH ×3 (06:20→22:04)
[2016-08-24] MEDS: ACETAZOLAMIDE 250 MG TABLET PO SCH ×3 (06:20→22:03)
[2016-08-24] MEDS: BUDESONIDE NEB 0.5 MG/2 ML AMPUL NEB SCH (09:00)
[2016-08-24] MEDS ORDERED: IPRATROPIUM/ALBUTEROL 0.5-2.5 MG/3 ML AMPUL NEB PRN (09:46)
[2016-08-24] MEDS: PREDNISONE 20 MG TABLET PO SCH (10:42)
[2016-08-24] MEDS: METOPROLOL SUCCINATE 25 MG TAB.SR.24H PO SCH (10:43)
[2016-08-24] MEDS: DOCUSATE SODIUM 100 MG CAPSULE PO SCH ×2 (10:43→17:20)
[2016-08-24] MEDS: LEVOTHYROXINE SODIUM 0.1 MG TABLET PO SCH (10:43)
[2016-08-24] MEDS: LEVOTHYROXINE SODIUM 0.075 MG TABLET PO SCH (10:44)
[2016-08-24] MEDS: METFORMIN HCL 500 MG TABLET PO SCH ×2 (10:44→17:20)
[2016-08-24] MEDS: DOXYCYCLINE HYCLATE 100 MG TABLET PO SCH ×2 (10:44→22:03)
[2016-08-24] MEDS: ASPIRIN 81 MG TABLET, ENT COATED PO SCH (10:44)
[2016-08-24] MEDS: RISPERIDONE 0.25 MG TABLET PO SCH ×2 (10:44→17:20)
--- NOTE | 2016-08-24 14:39 | PDOC PROGRESS REPORT ---
Subjective Progress Note for:: 08/24/16 Subjective:: Denies any complaints. We are waiting on insurance approval for the patient to go to group home facility. Physical Exam Vital Signs: Temp Pulse Resp BP Pulse Ox 97.4 F 81 16 102/65 96 08/24/16 08:02 08/24/16 11:03 08/24/16 11:03 08/24/16 08:02 08/24/16 11:03 Intake & Output 08/23/16 08/24/16 08/25/16 06:59 06:59 06:59 Intake Total 1176 863 Output Total 2 Balance 1174 863 Weight 96.3 kg 97.2 kg General appearance: PRESENT: no acute distress Eye exam: PRESENT: conjunctiva pink Mouth exam: PRESENT: moist, tongue midline Neck exam: ABSENT: JVD Respiratory exam: PRESENT: clear to auscultation jessenia. ABSENT: rales, rhonchi, wheezes Cardiovascular exam: PRESENT: RRR. ABSENT: diastolic murmur, rubs, systolic murmur GI/Abdominal exam: PRESENT: normal bowel sounds, soft. ABSENT: distended, guarding, mass, organolmegaly, rebound, tenderness Extremities exam: ABSENT: calf tenderness, clubbing, pedal edema Neurological exam: PRESENT: alert, awake Psychiatric exam: PRESENT: appropriate affect Skin exam: PRESENT: dry, intact, warm. ABSENT: cyanosis, rash Results Laboratory Results: 08/23/16 05:55 08/23/16 05:55 08/16/16 08/16/16 08/16/16 05:02 05:02 13:10 Creatine Kinase 46 58 CK-MB (CK-2) 1.48 Troponin I 0.039 08/16/16 08/16/16 08/16/16 13:10 17:12 17:12 Creatine Kinase 65 CK-MB (CK-2) 1.77 Troponin I 0.042 0.038 08/16/16 08/16/16 08/17/16 20:59 20:59 03:04 Creatine Kinase 68 66 CK-MB (CK-2) Troponin I 0.039 08/17/16 03:04 Creatine Kinase CK-MB (CK-2) Troponin I 0.035 Impressions: Chest X-Ray 08/18/16 00:00 IMPRESSION: No acute findings Assessment & Plan - Diagnosis (1) Acute on chronic respiratory failure with hypoxemia Is this a current diagnosis for this admission?: YesPlan: This was secondary to acute COPD exacerbation. She is improving and is ready for discharge. (2) Acute exacerbation of chronic bronchitis Is this a current diagnosis for this admission?: YesPlan: Secondary to acute COPD exacerbation. The patient is improving. Continue with prednisone and inhalers. (3) Anxiety Is this a current diagnosis for this admission?: YesPlan: Continue with Risperdal. (4) Hyperkalemia Is this a current diagnosis for this admission?: YesPlan: Resolved. (5) Hyperlipidemia Qualifiers: Hyperlipidemia type: unspecified Qualified Code(s): E78.5 - Hyperlipidemia, unspecified Is this a current diagnosis for this admission?: Yes (6) Hypertension Qualifiers: Hypertension type: essential hypertension Qualified Code(s): I10 - Essential (primary) hypertension Is this a current diagnosis for this admission?: YesPlan: Blood pressures have been relatively stable. (7) Obstructive sleep apnea Is this a current diagnosis for this admission?: YesPlan: Continue with CPAP (8) CHF (congestive heart failure) Qualifiers: Congestive heart failure type: diastolic Congestive heart failure chronicity: acute on chronic Qualified Code(s): I50.33 - Acute on chronic diastolic (congestive) heart failure Is this a current diagnosis for this admission?: YesPlan: Patient is currently euvolemic. (9) Diabetes mellitus Qualifiers: Diabetes mellitus type: type 2 Diabetes mellitus complication status: with hyperglycemia Diabetes mellitus alf insulin use: without extermination inspector use Qualified Code(s): E11.65 - Type 2 diabetes mellitus with hyperglycemia; Z79.4 - care home (current) use of insulin Is this a current diagnosis for this admission?: YesPlan: Continue with sliding scale insulin. (10) Hypothyroid Qualifiers: Hypothyroidism type: unspecified Qualified Code(s): E03.9 - Hypothyroidism, unspecified Is this a current diagnosis for this admission?: YesPlan: Continue with Synthroid. - Time Time Spent with patient: 25-34 minutes - Inpatient Certification Medical Necessity: Need Close Monitoring Due to Risk of Patient Decompensation - Plan Summary Plan Summary: Will transfer to rehabilitation for physical therapy when insurance approval is met.
[2016-08-24] MEDS: INSULIN LISPRO 100 UNIT/ML 3 ML VIAL SUBCUT PRN (17:19)
[2016-08-24] MEDS ORDERED: ACETAMINOPHEN 325 MG TABLET PO PRN (20:48)
[2016-08-25] MEDS: ACETAZOLAMIDE 250 MG TABLET PO SCH ×2 (06:08→13:53)
[2016-08-25] MEDS: HEPARIN SOD (PORCINE) 5,000 UNIT/ML 1 ML SYRINGE SUBCUT SCH ×2 (06:08→13:53)
[2016-08-25] MEDS: ASPIRIN 81 MG TABLET, ENT COATED PO SCH (09:43)
[2016-08-25] MEDS: METOPROLOL SUCCINATE 25 MG TAB.SR.24H PO SCH (09:43)
[2016-08-25] MEDS: LEVOTHYROXINE SODIUM 0.075 MG TABLET PO SCH (09:43)
[2016-08-25] MEDS: METFORMIN HCL 500 MG TABLET PO SCH (09:43)
[2016-08-25] MEDS: PREDNISONE 20 MG TABLET PO SCH (09:43)
[2016-08-25] MEDS: LEVOTHYROXINE SODIUM 0.1 MG TABLET PO SCH (09:43)
[2016-08-25] MEDS: DOXYCYCLINE HYCLATE 100 MG TABLET PO SCH (09:43)
[2016-08-25] MEDS: RISPERIDONE 0.25 MG TABLET PO SCH (09:45)
[2016-08-25] MEDS: DOCUSATE SODIUM 100 MG CAPSULE PO SCH (09:46)
--- NOTE | 2016-08-25 13:09 | PDOC DISCHARGE SUMMARY ---
General - Admit/Disc Date/PCP Admission Date/Primary Care Provider: 08/15/16 21:23 Discharge Date: 08/25/16 - Discharge Diagnosis (1) Acute on chronic respiratory failure with hypoxemia Is this a current diagnosis for this admission?: Yes (2) Acute exacerbation of chronic bronchitis Is this a current diagnosis for this admission?: Yes (3) Anxiety Is this a current diagnosis for this admission?: Yes (4) Hyperkalemia Is this a current diagnosis for this admission?: Yes (5) Hyperlipidemia Is this a current diagnosis for this admission?: Yes (6) Hypertension Is this a current diagnosis for this admission?: Yes (7) Obstructive sleep apnea Is this a current diagnosis for this admission?: Yes (8) CHF (congestive heart failure) Is this a current diagnosis for this admission?: Yes (9) Diabetes mellitus Is this a current diagnosis for this admission?: YesSummary: Glipizide was stopped secondary to recurrent hypoglycemia. (10) Hypothyroid Is this a current diagnosis for this admission?: Yes - Additional Information Resuscitation Status: Do Not Resuscitate Discharge Diet: Cardiac - low-fat low-salt, Diabetic - no concentrated sweets Discharge Activity: Activity As Tolerated, Balance Activity w/Rest, Slowly Increase Activity Home Medications: Acetaminophen [Tylenol 325 mg Tablet] 650 mg PO Q4HP PRN tablet 07/20/16 Levothyroxine Sodium [Synthroid] 175 mcg PO DAILY #30 tablet 07/20/16 Metoprolol Succinate [Toprol Xl 25 mg Tab.sr] 25 mg PO DAILY #30 tab.sr.24h Aspirin [Ecotrin 81 mg EC Tablet] 81 mg PO DAILY #30 tabec 08/12/16 Gemfibrozil [Lopid 600 mg Tablet] 600 mg PO BID #60 tab 08/12/16 Isosorbide Mononitrate [Imdur 30 mg Tablet.er] 30 mg PO DAILY #30 tab.er.24h Rosuvastatin Calcium [Crestor] 40 mg PO QHS #30 tab 08/12/16 Metformin HCl [Glucophage] 500 mg PO BID 08/16/16 Budesonide [Pulmicort Neb 0.5 mg/2 ml Ampul] 0.5 mg NEB RTQ12 ampul.neb Docusate Sodium [Colace 100 mg Capsule] 100 mg PO BID capsule 08/22/16 Insulin Lispro [Humalog Insulin (Lispro) 100 unit/mL] 0 - 12 unit SUBCUT ACHSP PRN unit 08/22/16 Ipratropium/Albuterol Sulfate [Duoneb 3 ml Ampul] 3 ml NEB RTQ4 vial.[facility] Ipratropium/Albuterol Sulfate [Duoneb 3 ml Ampul] 3 ml NEB RTQ4HP PRN vial.[facility] 08/22/16 Prednisone [Deltasone 20 mg Tablet] 10 mg PO DAILY #21 tablet 08/25/16 History of Present Illness History of Present Illness: NIELS ALSTON is a 75 year old female who presented with confusion and hypoxia. Patient was found to have an acute COPD exacerbation and was admitted for treatment. Patient has had multiple admissions over the last year. Hospital Course Hospital Course: 75-year-old female who has a history of COPD on oxygen chronically at home who presented with agitation and confusion. The patient was found to have hypercarbia with acute respiratory failure. She was treated with BiPAP but continues to have problems and was put on IV steroids with improvement in her respiratory status and has had complete normalization of her mental status. The patient is weak and we considered sending her to rehabilitation for physical therapy however her insurance denied her rehabilitation request. Because of this we are sending her home with home health physical therapy. The patient had been treated with doxycycline and has no evidence for infection at this time. She also during her hospitalization did have problems with some agitation that required Risperdal. Patient had previously been using benzodiazepines but given her story status we'll try to avoid that if possible. Patient also during this hospitalization did develop hypoglycemia and her glipizide was held. Physical Exam Vital Signs: Temp Pulse Resp BP Pulse Ox 97.6 F 74 16 124/43 L 98 08/25/16 08:06 08/25/16 11:16 08/25/16 11:16 08/25/16 08:06 08/25/16 11:16 Intake & Output 08/24/16 08/25/16 08/26/16 06:59 06:59 06:59 Intake Total 863 1780 Output Total 360 Balance 863 1420 Weight 97.2 kg 97.8 kg General appearance: PRESENT: no acute distress Eye exam: PRESENT: conjunctiva pink Mouth exam: PRESENT: moist, tongue midline Neck exam: ABSENT: JVD Respiratory exam: PRESENT: clear to auscultation jessenia. ABSENT: rales, rhonchi, wheezes Cardiovascular exam: PRESENT: RRR. ABSENT: diastolic murmur, rubs, systolic murmur GI/Abdominal exam: PRESENT: normal bowel sounds, soft. ABSENT: distended, guarding, mass, organolmegaly, rebound, tenderness Extremities exam: ABSENT: calf tenderness, clubbing, pedal edema Neurological exam: PRESENT: alert, awake, oriented to person, oriented to place , oriented to time, oriented to situation Psychiatric exam: PRESENT: appropriate affect Skin exam: PRESENT: dry, intact, warm. ABSENT: cyanosis, rash Results Laboratory Results: 08/23/16 05:55 08/23/16 05:55 08/16/16 08/16/16 08/16/16 05:02 05:02 13:10 Creatine Kinase 46 58 CK-MB (CK-2) 1.48 Troponin I 0.039 08/16/16 08/16/16 08/16/16 13:10 17:12 17:12 Creatine Kinase 65 CK-MB (CK-2) 1.77 Troponin I 0.042 0.038 08/16/16 08/16/16 08/17/16 20:59 20:59 03:04 Creatine Kinase 68 66 CK-MB (CK-2) Troponin I 0.039 08/17/16 03:04 Creatine Kinase CK-MB (CK-2) Troponin I 0.035 Impressions: Chest X-Ray 08/18/16 00:00 IMPRESSION: No acute findings Qualifiers PATEINT BEING DISCHARGED WITH ANY OF THE FOLLOWING DIAGNOSIS?: No Plan Discharge Plan: Patient is discharged home with home health for physical therapy, aide service, nursing services. Time Spent: Greater than 30 Minutes
[2016-08-25 13:41] VITALS: BP 199/71
== END 2016-08-25 14:49 | disposition home health service (06) | DRG 190 ==
LOC: ER 18:37 → EH 20:56 → UNDOADMIN 20:56 → EH 21:23 → 3W 08-16 00:40 → 4W 08-18 15:56 → 4S 08-18 20:25
PROVIDERS: ADMIT Internal Medicine; ATTEND Internal Medicine
PROC: 3E0F73Z Introduction of Anti-inflammatory into Respiratory Tract, Via Natural or Artificial Opening (ICD-10-PCS; principal; 2016-08-15)
PROC: 5A09557 Assistance with Respiratory Ventilation, Greater than 96 Consecutive Hours, Continuous Positive Airway Pressure (ICD-10-PCS; 2016-08-15)
DX: J44.1 Chronic obstructive pulmonary disease with (acute) exacerbation (principal); J96.21 Acute and chronic respiratory failure with hypoxia; I50.33 Acute on chronic diastolic (congestive) heart failure; E11.649 Type 2 diabetes mellitus with hypoglycemia without coma; E87.5 Hyperkalemia; E03.9 Hypothyroidism, unspecified; I11.0 Hypertensive heart disease with heart failure; E78.5 Hyperlipidemia, unspecified; G47.33 Obstructive sleep apnea (adult) (pediatric); F17.210 Nicotine dependence, cigarettes, uncomplicated; F41.1 Generalized anxiety disorder; M19.90 Unspecified osteoarthritis, unspecified site; Z66 Do not resuscitate; E11.65 Type 2 diabetes mellitus with hyperglycemia; E78.00 Pure hypercholesterolemia, unspecified; Z79.4 Long term (current) use of insulin; Z99.81 Dependence on supplemental oxygen; Z79.82 Long term (current) use of aspirin; Z79.899 Other long term (current) drug therapy; Z90.710 Acquired absence of both cervix and uterus; Z80.9 Family history of malignant neoplasm, unspecified; Z83.6 Family history of other diseases of the respiratory system; Z78.1 Physical restraint status
CPT/HCPCS: 36415; 36600; 71010; 80048; 80053; 82550; 82553; 82803; 82962; 83605; 83735; 83880; 84100; 84132; 84443; 84484; 85025; 85027; 85610; 87040; 93005; 93010; 94640; 94660; 96374; 99291; G8978-GP; G8979-GP; J1644; J1815; J2060; J2930; J3490; J7030; J7060; J7512; J7620

== ENCOUNTER 2017-03-18 10:15 | Emergency (ER) | payer MEDICARE, MEDICAID ==
[2017-03-18] MEDS ORDERED: PREDNISONE 20 MG TABLET PO ONE (10:29)
[2017-03-18] MEDS ORDERED: LEVOFLOXACIN 750 MG TABLET PO ONE (10:31)
[2017-03-18] MEDS ORDERED: IPRATROPIUM/ALBUTEROL 0.5-2.5 MG/3 ML AMPUL NEB ONE ×3 (10:31)
--- NOTE | 2017-03-18 10:33 | ER Document Report ---
ED Medical Screen (RME) - General Chief Complaint: Shortness Of Breath Stated Complaint: SHORTNESS OF BREATH TRAVEL OUTSIDE OF THE [place] IN LAST 30 DAYS: No - HPI Patient complains to provider of: SOB Onset: Other - last month Onset/Duration: Gradual Quality of pain: No pain Severity: Moderate Associated Symptoms: None Exacerbated by: Denies Relieved by: Denies - Related Data Smoking: Quit greater than 1 year Allergies/Adverse Reactions: No Known Drug Allergies Allergy (Verified 03/18/17 10:20) Past Medical History - Social History Family history: Reviewed & Not Pertinent - Past Medical History Cardiac Medical History: Reports: Hx Congestive Heart Failure, Hx Hypercholesterolemia, Hx Hypertension Pulmonary Medical History: Reports: Hx COPD, Hx Sleep Apnea Denies: Hx Tuberculosis Endocrine Medical History: Reports: Hx Diabetes Mellitus Type 2, Hx Hypothyroidism Renal/ Medical History: Denies: Hx Peritoneal Dialysis Musculoskeltal Medical History: Reports Hx Arthritis Psychiatric Medical History: Denies: Hx Depression Past Surgical History: Reports: Hx Hysterectomy, Hx Vascular Surgery - Immunizations Hx Diphtheria, Pertussis, Tetanus Vaccination: Yes Review of Systems - Review of Systems Constitutional: No symptoms reported EENT: No symptoms reported Cardiovascular: No symptoms reported. denies: Chest pain Respiratory: No symptoms reported, Cough, Short of breath Gastrointestinal: No symptoms reported Genitourinary: No symptoms reported Female Genitourinary: No symptoms reported Musculoskeletal: No symptoms reported Skin: No symptoms reported Hematologic/Lymphatic: No symptoms reported Neurological/Psychological: No symptoms reported Physical Exam - Vital signs Vitals: Temp Pulse Resp BP Pulse Ox 97.5 F 99 24 H 194/58 H 94 03/18/17 10:21 03/18/17 10:21 03/18/17 10:21 03/18/17 10:21 03/18/17 10:21 Interpretation: Normal - General General appearance: Appears well, Alert - HEENT Head: Normocephalic, Atraumatic Eyes: Normal Pupils: PERRL - Respiratory Respiratory status: No respiratory distress Chest status: Nontender Breath sounds: Decreased air movement, Wheezing Chest palpation: Normal - Cardiovascular Rhythm: Regular Heart sounds: Normal auscultation Murmur: No - Abdominal Inspection: Normal Distension: No distension Bowel sounds: Normal Tenderness: Nontender Organomegaly: No organomegaly - Back Back: Normal, Nontender - Extremities General upper extremity: Normal inspection, Nontender, Normal color, Normal ROM , Normal temperature General lower extremity: Normal inspection, Nontender, Normal color, Normal ROM , Normal temperature, Normal weight bearing. No: Mackenzie's sign - Neurological Neuro grossly intact: Yes Cognition: Normal Orientation: AAOx4 Perri Coma Scale Eye Opening: Spontaneous Arnett Coma Scale Verbal: Oriented Arnett Coma Scale Motor: Obeys Commands Arnett Coma Scale Total: 15 Speech: Normal Motor strength normal: LUE, RUE, LLE, RLE Sensory: Normal - Psychological Associated symptoms: Normal affect, Normal mood - Skin Skin Temperature: Warm Skin Moisture: Dry Skin Color: Normal Course - Re-evaluation Re-evalutation: 03/18/17 10:33 Pleasant female presents with increasing shortness of breath and increased coughing over the last month. Patient has lengthy history of COPD. Patient at the last month she has been out of some of her medications. In getting her more difficult for her to breathe. Denies chest pain, nausea, vomiting, diaphoresis., Fever. 03/18/17 11:35 Patient given multiple DuoNeb treatment, oral prednisone, oral Levaquin. Feeling much improved this time breathing no longer distress. Will like to be discharged home improved. Patient EKG very reassuring unchanged from previous no ischemic changes. Patient's chest x-ray unchanged previous. - Vital Signs Vital signs: Temp Pulse Resp BP Pulse Ox 97.5 F 99 24 H 194/58 H 94 03/18/17 10:21 03/18/17 10:21 03/18/17 10:23 03/18/17 10:21 03/18/17 10:21 - EKG Interpretation by Me EKG shows normal: Sinus rhythm Rate: Normal - Normal sinus rhythm, the elevations are Doctor's Discharge - Discharge Clinical Impression: COPD with exacerbation Condition: Good Disposition: HOME, SELF-CARE Instructions: Chronic Obstructive Lung Disease ([facility]) Additional Instructions: Primary care provider early next week, return if anything change Prescriptions: Levofloxacin [Levaquin 500 mg Tablet] 500 mg PO DAILY #4 tablet Prednisone [Deltasone 20 mg Tablet] 1 tab PO DAILY 5 Days
--- NOTE | 2017-03-18 11:28 | RADIOLOGY REPORT (SQ) ---
EXAM DESCRIPTION: CHEST PA/LAT COMPLETED DATE/TIME: 03/18/2017 11:14 am REASON FOR STUDY: SOB COMPARISON: 08/18/2016 NUMBER OF VIEWS: Two view. TECHNIQUE: Frontal and lateral radiographic views of the chest acquired. LIMITATIONS: None. FINDINGS: LUNGS AND PLEURA: No opacities, masses or pneumothorax. No pleural effusion. MEDIASTINUM AND HILAR STRUCTURES: No masses. No contour abnormalities. HEART AND VASCULAR STRUCTURES: Heart enlarged without failure. Aorta normal for age. BONES: No acute findings. HARDWARE: None in the chest. OTHER: No other significant finding. IMPRESSION: CARDIAC ENLARGEMENT WITHOUT FAILURE. TECHNICAL DOCUMENTATION: JOB ID: [id number] [employer]- All Rights Reserved
[2017-03-18 11:36] VITALS: BP 170/53
--- NOTE | 2017-03-18 15:19 | EKG REPORT ---
SEVERITY:- BORDERLINE ECG - SINUS TACHYCARDIA VENTRICULAR PREMATURE COMPLEX PROBABLE LEFT ATRIAL ABNORMALITY : Confirmed by: Casandra Rosenberg MD 18-Mar-2017 15:18:47
== END 2017-03-18 11:35 | disposition home or self-care (01) ==
LOC: ER 10:15
DX: J44.1 Chronic obstructive pulmonary disease with (acute) exacerbation (principal); R06.02 Shortness of breath
CPT/HCPCS: 93005; 94640 ×2; 99285; 71020; 93010; A9270 ×3; J7512; J7620

== ENCOUNTER 2017-03-26 21:10 | Emergency (ER) | payer MEDICARE, MEDICAID ==
[2017-03-26] MEDS ORDERED: IPRATROPIUM/ALBUTEROL 0.5-2.5 MG/3 ML AMPUL NEB ONE ×3 (21:52→21:53)
[2017-03-26] MEDS ORDERED: MAGNESIUM SULFATE/D5W 100 ML IV PRN (21:53)
[2017-03-26] MEDS ORDERED: METHYLPREDNISOLONE INJ 125 MG/2 ML SDV IV ONE (21:53)
--- NOTE | 2017-03-26 21:57 | ER Document Report ---
ED Respiratory Problem - General Chief Complaint: Shortness Of Breath Stated Complaint: SHORTNESS OF BREATH Time Seen by Provider: 03/26/17 21:49 Notes: Patient is a 76-year-old female who comes emergency department for chief complaint of difficulty breathing with wheezing and cough, she was evaluated about 1 week ago and treated with prednisone and Levaquin, she states she was taking these as prescribed. She worsened tonight with inability to even walk across the room. She denies fever. She is on 2 L nasal cannula at all times. She sees local pulmonology. She denies any chest pain, vomiting, cardiac history. TRAVEL OUTSIDE OF THE [place] IN LAST 30 DAYS: No - Related Data Allergies/Adverse Reactions: No Known Drug Allergies Allergy (Verified 03/18/17 10:20) Past Medical History - General Information source: Patient - Social History Smoking Status: Never Smoker Frequency of alcohol use: None Drug Abuse: None Lives with: Family Family History: Malignancy - Mother of a complication, father of COPD, both siblings of cancer, Other - Past Medical History Cardiac Medical History: Reports: Hx Congestive Heart Failure, Hx Hypercholesterolemia, Hx Hypertension Pulmonary Medical History: Reports: Hx COPD, Hx Sleep Apnea Denies: Hx Tuberculosis Endocrine Medical History: Reports: Hx Diabetes Mellitus Type 2, Hx Hypothyroidism Renal/ Medical History: Denies: Hx Peritoneal Dialysis Musculoskeltal Medical History: Reports Hx Arthritis Psychiatric Medical History: Denies: Hx Depression Past Surgical History: Reports: Hx Cardiac Surgery, Hx Hysterectomy, Hx Orthopedic Surgery - hips, Hx Vascular Surgery - Immunizations Hx Diphtheria, Pertussis, Tetanus Vaccination: Yes Hx Pneumococcal Vaccination: 09/08/13 Review of Systems - Review of Systems Constitutional: No symptoms reported EENT: No symptoms reported Cardiovascular: No symptoms reported Respiratory: See HPI Gastrointestinal: No symptoms reported Genitourinary: No symptoms reported Female Genitourinary: No symptoms reported Musculoskeletal: No symptoms reported Skin: No symptoms reported Hematologic/Lymphatic: No symptoms reported Neurological/Psychological: No symptoms reported Physical Exam - Vital signs Vitals: Temp Pulse Resp BP Pulse Ox 98.3 F 108 H 24 H 196/61 H 94 03/26/17 21:34 03/26/17 21:34 03/26/17 21:34 03/26/17 21:34 03/26/17 21:34 Interpretation: Normal - General General appearance: Alert, Anxious In distress: Mild - HEENT Head: Normocephalic, Atraumatic Eyes: Normal Conjunctiva: Normal Extraocular movements intact: Yes Eyelashes: Normal Pupils: PERRL Mouth/Lips: Normal Mucous membranes: Normal Pharynx: Normal Neck: Normal - Respiratory Respiratory status: Labored, Tachypnea Chest status: Nontender Breath sounds: Decreased air movement, Wheezing Chest palpation: Normal - Cardiovascular Rhythm: Regular, Tachycardia Heart sounds: Normal auscultation, S1 appreciated, S2 appreciated Murmur: No - Abdominal Inspection: Normal Distension: No distension Bowel sounds: Normal Tenderness: Nontender. No: Tender, Guarding Organomegaly: No organomegaly - Back Back: Normal, Nontender - Extremities General upper extremity: Normal inspection, Nontender, Normal color, Normal ROM , Normal temperature General lower extremity: Normal inspection, Nontender, Normal color, Normal ROM , Normal temperature, Normal weight bearing. No: Edema - Neurological Neuro grossly intact: Yes Cognition: Normal Orientation: AAOx4 Perri Coma Scale Eye Opening: Spontaneous Cecil Coma Scale Verbal: Oriented Cecil Coma Scale Motor: Obeys Commands Perri Coma Scale Total: 15 Speech: Normal Motor strength normal: LUE, RUE, LLE, RLE Sensory: Normal - Psychological Associated symptoms: Normal affect, Normal mood - Skin Skin Temperature: Warm Skin Moisture: Dry Skin Color: Normal Course - Re-evaluation Re-evalutation: Initially patient with tachypnea, decreased breath sounds, loud wheezing in all lung hicks. No hypoxia. Patient on oxygen at home already. Given DuoNeb's, magnesium, Solu-Medrol. After that she improved significantly. Patient was monitored, on reevaluation symptoms have completely resolved, no tachypnea, no wheezing. Patient stating that she does not want to be hospitalized and she wants to go home. CBC unremarkable, venous blood gas normal, chest x-ray unremarkable. Patient ambulated On pulse oxygenation testing, lowest oxygen level was 94%, patient tolerated very well with no significant labored breathing or difficulty. Patient again asking to leave. Because of her history, discussed return precautions in detail , advised close follow-up, placing on prednisone, patient just finished Levaquin. Patient states satisfaction in agreement with plan, son at bedside. - Vital Signs Vital signs: Temp Pulse Resp BP Pulse Ox 98.3 F 95 20 198/87 H 95 03/26/17 21:34 03/27/17 01:39 03/27/17 01:39 03/27/17 01:39 03/27/17 01:39 - Laboratory Result Diagrams: 03/26/17 22:01 03/26/17 22:01 Laboratory results interpreted by me: 03/26/17 03/26/17 22:01 22:01 Hgb 11.5 L Hct 35.1 L RDW 14.3 H Eosinophils % 7.9 H Glucose 165 H Discharge - Discharge Clinical Impression: Wheezing, Shortness of breath, Obstructive chronic bronchitis with exacerbation Condition: Stable Disposition: HOME, SELF-CARE Additional Instructions: Take the 60 mg of prednisone daily as prescribed. Continue breathing treatments. 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 Return to emergency department if you worsen in any way including difficulty breathing, fever, etc. Prescriptions: Prednisone 60 mg PO DAILY #15 tablet Forms: Elevated Blood Pressure
[2017-03-26 22:08] LABS: ABSOLUTE EOSINOPHILS # (AUTO) 0.6 10^3/uL (0.0-0.6); ABSOLUTE LYMPHOCYTES (AUTO) 1.2 10^3/uL (0.5-4.7); ABSOLUTE MONOCYTES (AUTO) 0.5 10^3/uL (0.1-1.4); ABSOLUTE NEUT (AUTO) 5.2 10^3/uL (1.7-8.2); BASOPHILS % (AUTO) 0.6 % (0-2); EOSINOPHILS % (AUTO) 7.9 % (0-6); HEMATOCRIT 35.1 % (36.0-47.0); HEMOGLOBIN 11.5 g/dL (12.0-15.5); HGB HCT DIFFERENCE -0.6; MEAN CORPUSCULAR HEMOGLOBIN 27.5 pg (27.0-33.4); MEAN CORPUSCULAR HGB CONC 32.9 g/dL (32.0-36.0); MEAN CORPUSCULAR VOLUME 84 fl (80-97); MONOCYTES % (AUTO) 6.1 % (3-13); RED BLOOD COUNT 4.19 10^6/uL (3.72-5.28); RED CELL DISTRIBUTION WIDTH 14.3 % (11.5-14.0); SEGMENTED NEUTROPHILS % (AUTO) 69.4 % (42-78); WHITE BLOOD COUNT 7.5 10^3/uL (4.0-10.5)
[2017-03-26 22:30] LABS: ALANINE AMINOTRANSFERASE 44 U/L (9-52); ALBUMIN 4.1 g/dL (3.5-5.0); ALKALINE PHOSPHATASE 80 U/L (38-126); ANION GAP 13 (5-19); ASPARTATE AMINO TRANSFERASE 36 U/L (14-36); BILIRUBIN,DIRECT 0.3 mg/dL (0.0-0.4); BILIRUBIN,TOTAL 0.4 mg/dL (0.2-1.3); BLOOD UREA NITROGEN 10 mg/dL (7-20); CALCIUM 9.6 mg/dL (8.4-10.2); CARBON DIOXIDE 26 mmol/L (22-30); CHLORIDE 104 mmol/L (98-107); CREATINE KINASE 74 U/L (30-135); CREATININE RESULT 0.89 mg/dL (0.52-1.25); GLUCOSE 165 mg/dL (75-110); SODIUM 143.4 mmol/L (137-145); TOTAL PROTEIN 6.7 g/dL (6.3-8.2)
[2017-03-26 22:42] LABS: CREATINE KINASE MB 1.62 ng/mL (<4.55); TROPONIN I 0.018 ng/mL
--- NOTE | 2017-03-26 22:54 | RADIOLOGY REPORT (SQ) ---
EXAM DESCRIPTION: CHEST SINGLE VIEW COMPLETED DATE/TIME: 03/26/2017 10:29 pm REASON FOR STUDY: difficulty breathing COMPARISON: 03/18/2017 EXAM PARAMETERS: NUMBER OF VIEWS: One view. TECHNIQUE: Single frontal radiographic view of the chest acquired. RADIATION DOSE: NA LIMITATIONS: None. FINDINGS: LUNGS AND PLEURA: No acute opacities, masses or pneumothorax. No pleural effusion. MEDIASTINUM AND HILAR STRUCTURES: Stable. HEART AND VASCULAR STRUCTURES: Stable. BONES: No acute findings. HARDWARE: None in the chest. OTHER: No other significant finding. IMPRESSION: NO ACUTE RADIOGRAPHIC FINDING IN THE CHEST. TECHNICAL DOCUMENTATION: JOB ID: [id number]
[2017-03-26 23:50] LABS: VENOUS BLOOD HCO3 28.3 mmol/L (20-32); VENOUS BLOOD PCO2 51.9 mmHg (35-63); VENOUS BLOOD PH 7.35 (7.30-7.42)
[2017-03-27] MEDS ORDERED: PREDNISONE 20 MG TABLET PO ONE (00:45)
[2017-03-27 01:41] VITALS: BP 198/87
--- NOTE | 2017-03-27 04:45 | EKG REPORT ---
SEVERITY:- BORDERLINE ECG - SINUS RHYTHM : Confirmed by: Kishore Nicole MD 27-Mar-2017 04:22:09
== END 2017-03-27 01:41 | disposition home or self-care (01) ==
LOC: ER 21:10
DX: J44.1 Chronic obstructive pulmonary disease with (acute) exacerbation (principal); Z99.81 Dependence on supplemental oxygen; R06.02 Shortness of breath; R05 Cough; I10 Essential (primary) hypertension; E11.9 Type 2 diabetes mellitus without complications; R00.0 Tachycardia, unspecified; Z82.5 Family history of asthma and other chronic lower respiratory diseases
CPT/HCPCS: 93005; 94640 ×2; 99285; 96375; 96365; 36415; 87040; 82553; 82550; 85025; 80053; 84484; 82803; 71010; 93010; J2930; J3475; A9270 ×2; J7512; J7620

== ENCOUNTER 2017-05-31 14:36 | Emergency (ER) | payer MEDICARE, OTHER ==
[2017-05-31] MEDS ORDERED: IPRATROPIUM/ALBUTEROL 0.5-2.5 MG/3 ML AMPUL NEB ONE (15:06)
[2017-05-31] MEDS ORDERED: MAGNESIUM SULFATE/D5W 1 GM/100 ML RTUPB IV ONE (15:10)
--- NOTE | 2017-05-31 15:11 | ER Document Report ---
ED Respiratory Problem - General Chief Complaint: Breathing Difficulty Stated Complaint: DIFFICULTY BREATHING Time Seen by Provider: 05/31/17 14:40 Notes: Patient is a 76 year old female who presents to the ED complaining of shortness of breath for a couple of days. She states it was worse this AM, improved after a breathing treatment, then she called EMS. She has been on 20 mg of prednisone daily since 05/24 by her PCP anson vora. She denies any fevers, chills, productive cough, nausea, vomiting, abdominal pain. TRAVEL OUTSIDE OF THE [place] IN LAST 30 DAYS: No - Related Data Allergies/Adverse Reactions: No Known Drug Allergies Allergy (Verified 03/18/17 10:20) Past Medical History - Social History Smoking Status: Never Smoker Chew tobacco use (# tins/day): No Frequency of alcohol use: None Drug Abuse: None Family History: Malignancy - Mother of a complication, father of COPD, both siblings of cancer, Other - Past Medical History Cardiac Medical History: Reports: Hx Congestive Heart Failure, Hx Hypercholesterolemia, Hx Hypertension Pulmonary Medical History: Reports: Hx COPD, Hx Sleep Apnea Denies: Hx Tuberculosis Endocrine Medical History: Reports: Hx Diabetes Mellitus Type 2, Hx Hypothyroidism Renal/ Medical History: Denies: Hx Peritoneal Dialysis Musculoskeltal Medical History: Reports Hx Arthritis Psychiatric Medical History: Denies: Hx Depression Past Surgical History: Reports: Hx Cardiac Surgery, Hx Hysterectomy, Hx Orthopedic Surgery - hips, Hx Vascular Surgery - Immunizations Hx Diphtheria, Pertussis, Tetanus Vaccination: Yes Hx Pneumococcal Vaccination: 09/08/13 Review of Systems - Review of Systems Constitutional: No symptoms reported Cardiovascular: No symptoms reported Respiratory: See HPI Gastrointestinal: No symptoms reported -: Yes All other systems reviewed and negative Physical Exam - Vital signs Vitals: Resp BP Pulse Ox 40 H 204/66 H 91 L 05/31/17 14:43 05/31/17 14:43 05/31/17 14:43 - Notes Notes: PHYSICAL EXAM GENERAL: Alert, interacts well. HEAD: Normocephalic, atraumatic. EYES: Pupils equal, round, and reactive to light. Extraocular movements intact. ENT: Oral mucosa moist, tongue midline. NECK: Full range of motion. Supple. Trachea midline. LUNGS: Bilateral wheezes and rhonchi without rales. No respiratory distress. HEART: Regular rate and rhythm. No murmurs, gallops, or rubs. ABDOMEN: Soft, nondistended, nontender. No guarding, rebound, or rigidity.. Bowel sounds present in all 4 quadrants. EXTREMITIES: Moves all 4 extremities spontaneously. No edema, radial and dorsalis pedis pulses 2/4 bilaterally. No cyanosis. NEUROLOGICAL: Alert and oriented x4. Normal speech. PSYCH: Normal affect, normal mood. SKIN: Warm, dry, normal turgor. No rashes or lesions noted. Course - Re-evaluation Re-evalutation: 05/31/17 15:52 Patient is a 76-year-old female who is hemodynamically stable, no acute distress and afebrile. Has been tachycardic and hypoxic. Patient received 125 mg IV of Solu-Medrol via EMS and has received multiple breathing treatments. She is also receiving magnesium for COPD exacerbation. Initial troponin was 0.104. Otherwise CBC stable with mild leukocytosis of 15 and no evidence of left shift. No evidence of anemia. CMP stable without evidence of electrolyte abnormalities. Troponin was elevated above her baseline. No EKG changes. Patient not complaining of chest pain. Given persistent tachycardia patient sent for CTA to rule out PE. Patient is improving with breathing treatments. 05/31/17 17:54 CTA was negative for evidence of a PE. At the bedside patient states she is feeling much better. Will obtain a ambulatory pulse ox and patient's baseline O2 on 2 L. 05/31/17 19:03 Repeat troponin was 0.084. Again no evidence of EKG changes on rhythm strips. Patient declining any history of chest pain. She states she feels much better and at her baseline after breathing treatments, steroids and magnesium. Ambulatory pulse ox on 2 L O2 is at the lowest 92%. Patient states that she does not want to be admitted the hospital wants to be discharged home. Patient' s son able to stay with her this evening she states. 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 Santiago. - Vital Signs Vital signs: Temp Pulse Resp BP Pulse Ox 98.8 F 37 H 186/53 H 93 05/31/17 15:06 05/31/17 15:01 05/31/17 15:01 05/31/17 15:01 - Laboratory Result Diagrams: 05/31/17 14:50 05/31/17 14:50 Laboratory results interpreted by me: 05/31/17 05/31/17 14:50 14:50 WBC 15.4 H MCH 26.5 L RDW 16.2 H Absolute Neutrophils 11.6 H Glucose 134 H - Diagnostic Test Radiology reviewed: Image reviewed, Reports reviewed - EKG Interpretation by Me EKG shows normal: Sinus rhythm Rate: Normal Rhythm: NSR When compared to previous EKG there are: No significant change Discharge - Discharge Clinical Impression: COPD (chronic obstructive pulmonary disease) Qualifiers: COPD type: COPD with acute exacerbation Qualified Code(s): J44.1 - Chronic obstructive pulmonary disease with (acute) exacerbation Condition: Stable Disposition: HOME, SELF-CARE Additional Instructions: -Please start taking your Prednisone 40mg a day, or one tablet twice a day for 5 days -Follow up with Anson Vora PA-C tomorrow Chronic Obstructive Lung Disease You have chronic obstructive lung disease (COPD). The symptoms come from emphysema (damage to small airways, with trapping of air in large sacks in the lung) and chronic bronchitis (repeated infection and damage to larger airways). The cause is almost always cigarette smoking, although dust exposure, asthma, and infections contribute. You should avoid fumes, dust, and smoke (especially tobacco smoke). Your condition will flare from time to time. There is no cure, but the symptoms can be treated. Bronchodilators (asthma medicine) are often helpful. Antibiotics help when infection is present. When shortness of breath is severe, we may prescribe cortisone medication. If medicine doesn't help enough, we can arrange for you to have an oxygen tank at home. Notify your doctor at once if sputum becomes thick, foul, or bloody, if you develop a fever or chest pain, or if your shortness of breath worsens. INHALED BRONCHODILATORS: You have received a treatment of and/or prescription for an inhaled bronchodilator -- a medication which stimulates the airways in the lung to dilate. This improves the flow of air in asthma, bronchitis, and emphysema. These medicines have some similarity to adrenaline, and can cause similar side effects: shakiness, racing heart, and a sense of nervousness. These side effects decrease with time. Contact your doctor if these side effects are severe. Do not over-use the medicine. Too-frequent use of the inhaler may make it ineffective. Call your doctor if the inhaler is not controlling your symptoms at the prescribed doses. STEROID MEDICATION: You have been given an injection of or oral medicine of the cortisone/ steroid class. This medication is used to control inflammation or allergy. Winston t is usually only given for a short period of time, until the acute process subsides. There are usually no side effects from short-term use of cortisone-like medications. Some persons feel an increased sense of well-being and are not sleepy at bedtime. Long-term use of cortisone medications is best avoided, unless required for a severe condition. If your condition does not remit, or relapses after the course of corticosteroid medication, you should consult your physician. ANTIBIOTIC THERAPY: You have been given an antibiotic prescription. It's important that you take all the medication, unless instructed otherwise by your physician. Failure to complete the entire course can result in relapse of your condition. Common side effects of antibiotics include nausea, intestinal cramping, or diarrhea. Women may develop vaginal yeast infections, and babies can get yeast (thrush) in the mouth following the use of antibiotics. Contact your physician if you develop significant side effects from this medication. Allergy to this antibiotic can result in hives, wheezing, faintness, or itching. If symptoms of allergy occur, stop the medication and call your doctor. USE OF ACETAMINOPHEN (Tylenol): Acetaminophen may be taken for pain relief or fever control. It's much safer than aspirin, offering a wider range of "safe" dosages. It is safe during . Some brand names are Tylenol, Panadol, Datril, Anacin 3, Tempra, and Liquiprin. Acetaminophen can be repeated every four hours. The following are maximum recommended dosages: >89 pounds or adults 650 mg to 900 mg Acetaminophen can be repeated every four hours. Maximum dose not to exceed 4000 mg a day. FOLLOW-UP CARE: If you have been referred to a physician for follow-up care, call the physician s office for an appointment as you were instructed or within the next two days. If you experience worsening or a significant change in your symptoms, notify the physician immediately or return to the Emergency Department at any time for re-evaluation. Prescriptions: Levofloxacin 750 mg PO DAILY #5 tablet Referrals: ANSON VORA PA-C [NO LOCAL MD] - Follow up tomorrow JERALD SANTIAGO MD [ACTIVE STAFF] - Follow up in 1 week
[2017-05-31 15:13] LABS: ABSOLUTE EOSINOPHILS # (AUTO) 0.1 10^3/uL (0.0-0.6); ABSOLUTE LYMPHOCYTES (AUTO) 2.5 10^3/uL (0.5-4.7); ABSOLUTE MONOCYTES (AUTO) 1.1 10^3/uL (0.1-1.4); ABSOLUTE NEUT (AUTO) 11.6 10^3/uL (1.7-8.2); BASOPHILS % (AUTO) 0.3 % (0-2); EOSINOPHILS % (AUTO) 0.8 % (0-6); HEMATOCRIT 39.5 % (36.0-47.0); HEMOGLOBIN 12.7 g/dL (12.0-15.5); HGB HCT DIFFERENCE -1.4; LYMPHOCYTES % (AUTO) 16.3 % (13-45); MEAN CORPUSCULAR HEMOGLOBIN 26.5 pg (27.0-33.4); MEAN CORPUSCULAR HGB CONC 32.1 g/dL (32.0-36.0); MEAN CORPUSCULAR VOLUME 83 fl (80-97); MONOCYTES % (AUTO) 7.3 % (3-13); RED BLOOD COUNT 4.78 10^6/uL (3.72-5.28); RED CELL DISTRIBUTION WIDTH 16.2 % (11.5-14.0); SEGMENTED NEUTROPHILS % (AUTO) 75.3 % (42-78); WHITE BLOOD COUNT 15.4 10^3/uL (4.0-10.5)
[2017-05-31] MEDS ORDERED: MAGNESIUM SULFATE/D5W 1 GM/100 ML RTUPB IV SCH (15:15)
[2017-05-31 15:18] LABS: VENOUS BLOOD BASE EXCESS 3.5 mmol/L; VENOUS BLOOD HCO3 29.9 mmol/L (20-32); VENOUS BLOOD PCO2 52.9 mmHg (35-63); VENOUS BLOOD PH 7.37 (7.30-7.42)
[2017-05-31 15:24] LABS: ALANINE AMINOTRANSFERASE 37 U/L (9-52); ALBUMIN 4.3 g/dL (3.5-5.0); ALKALINE PHOSPHATASE 86 U/L (38-126); ANION GAP 15 (5-19); ASPARTATE AMINO TRANSFERASE 20 U/L (14-36); BILIRUBIN,DIRECT 0.4 mg/dL (0.0-0.4); BLOOD UREA NITROGEN 13 mg/dL (7-20); CARBON DIOXIDE 30 mmol/L (22-30); CHLORIDE 98 mmol/L (98-107); GLUCOSE 134 mg/dL (75-110); POTASSIUM 3.7 mmol/L (3.6-5.0); SODIUM 143.4 mmol/L (137-145)
[2017-05-31] MEDS: ALBUTEROL SULFATE 0.083% NEB 2.5 MG/3 ML AMPUL NEB SCH ×2 (15:29→16:08)
--- NOTE | 2017-05-31 15:47 | RADIOLOGY REPORT (SQ) ---
EXAM DESCRIPTION: CHEST SINGLE VIEW COMPLETED DATE/TIME: 05/31/2017 3:30 pm REASON FOR STUDY: shortness of breath COMPARISON: Chest films 08/09/2016, 08/18/2016, 03/18/2017, 03/26/2017 EXAM PARAMETERS: NUMBER OF VIEWS: One view. TECHNIQUE: Single frontal radiographic view of the chest acquired. RADIATION DOSE: NA LIMITATIONS: None. FINDINGS: LUNGS AND PLEURA: No opacities, masses or pneumothorax. No pleural effusion. MEDIASTINUM AND HILAR STRUCTURES: No masses. Contour normal. HEART AND VASCULAR STRUCTURES: Heart normal in size. Normal vasculature. BONES: No acute findings. HARDWARE: None in the chest. OTHER: No other significant finding. IMPRESSION: NO ACUTE RADIOGRAPHIC FINDING IN THE CHEST. TECHNICAL DOCUMENTATION: JOB ID: [id number]
--- NOTE | 2017-05-31 17:48 | RADIOLOGY REPORT (SQ) ---
EXAM DESCRIPTION: CTA CHEST COMPLETED DATE/TIME: 05/31/2017 5:16 pm REASON FOR STUDY: tachypnea, hypoxic COMPARISON: 01/20/2016 TECHNIQUE: CT scan of the chest performed using helical scanning technique with dynamic intravenous contrast injection. Images reviewed with lung, soft tissue and bone windows. Reconstructed coronal and sagittal MPR images reviewed. Additional 3 dimensional post-processing performed to develop Maximal Intensity Projection images (PR P). All images stored on PACS. All CT scanners at this facility use dose modulation, iterative reconstruction, and/or weight based d osing when appropriate to reduce radiation dose to as low as reasonably achievable (ALARA). [facility]: Dose Right [facility]: CareDose [facility]: Dose Right [facility]: Teradose 4D [facility]: [employer] CONTRAST TYPE AND DOSE: contrast/concentration: Isovue 370.00 mg/ml; Total Contrast Delivered: 64.0 ml; Total Saline Delivered: 70.2 ml Contrast bolus optimized for the pulmonary arteries. Not diagnostic for the aorta. RENAL FUNCTION: Creatinine 0.9 BUN 13 RADIATION DOSE: Up-to-date CT equipment and radiation dose reduction techniques were employed. CTDIv ol: 21.1 - 24.8 mGy. DLP: 806 mGy-cm. . LIMITATIONS: None. FINDINGS: LUNGS AND PLEURA: There is pleural/parenchymal scarring in upper lobes. A stable very sma ll right pulmonary nodule is present on image 54 series 4 in the right middle lobe. AORTA AND GREAT VESSELS: No aneurysm. Contrast bolus not optimized for the aorta. HEART: No pericardial effusion. Moderate to marked coronary artery calcifications. PULMONARY ARTERIES: No emboli visualized in the main pulmonary arteries or the segmental branches. HILAR AND MEDIASTINAL STRUCTURES: No identified masses or abnormal nodes. HARDWARE: None in the chest. UPPER ABDOMEN: No significant findings. Limited exam. THYROID AND OTHER SOFT TISSUES: No masses. No adenopathy. BONES: No acute or significant finding. 3D MIPS: Confirm above findings. OTHER: No other significant finding. IMPRESSION: NORMAL CTA OF THE CHEST. NO PULMONARY EMBOLI. COMMENT: Quality ID # [id number]: Final reports with documentation of one or more dose reduction techniques (e.g., Automated exposure control, adjustment of the mA and/or kV according to patient size, use of iterative reconstruction technique) TECHNICAL DOCUMENTATION: JOB ID: [id number] [email or web address]- All Rights Reserved
--- NOTE | 2017-05-31 19:00 | EKG REPORT ---
SEVERITY:- ABNORMAL ECG - SINUS TACHYCARDIA REPOL ABNRM SUGGESTS ISCHEMIA, LATERAL LEADS : Confirmed by: Kishore Nicole MD 31-May-2017 18:59:11
[2017-05-31] MEDS ORDERED: ALBUTEROL SULFATE HFA (90 MCG/PUFF) 8 GM MDI (1 MDI/ER DISP) IH PRN (19:09)
[2017-05-31] MEDS ORDERED: ALBUTEROL SULFATE 0.083% NEB 2.5 MG/3 ML AMPUL NEB ONE (19:13)
[2017-05-31 21:53] VITALS: BP 160/62
== END 2017-05-31 21:54 | disposition home or self-care (01) ==
LOC: ER 14:36
DX: J44.1 Chronic obstructive pulmonary disease with (acute) exacerbation (principal); R06.02 Shortness of breath
CPT/HCPCS: 93005; 94640 ×2; 99285; 96365; 36415; 82553; 82550; 85025; 80053; 84484; 82803; 71010; 71275; 93010; J3475; A9270 ×2; J3490; J7620

== ENCOUNTER → 2017-10-23 | Outpatient (CLI) | payer MEDICARE, MEDICAID ==
[2017-10-23 12:39] LABS: ARTERIAL BLOOD BASE EXCESS 0 mmol/L; ARTERIAL BLOOD H2CO3 1.02 mmol/L (1.05-1.35); ARTERIAL BLOOD HCO3 23.4 mmol/L (20-26); ARTERIAL BLOOD O2 SATURATION 97.8 % (94-98); ARTERIAL BLOOD PCO2 33.9 mmHg (35-45); ARTERIAL BLOOD PH 7.46 (7.35-7.45); ARTERIAL BLOOD PO2 97.4 mmHg (80-100); ARTERIAL BLOOD TOTAL CO2 24.4 mmol/L (21-25)
[2017-10-23 12:40] LABS: ARTERIAL BLOOD FIO2 2L
--- NOTE | 2017-10-23 14:06 | RADIOLOGY REPORT (SQ) ---
EXAM DESCRIPTION: CHEST PA/LAT COMPLETED DATE/TIME: 10/23/2017 12:11 pm REASON FOR STUDY: COUGH COMPARISON: None. EXAM PARAMETERS: NUMBER OF VIEWS: two views TECHNIQUE: Digital Frontal and Lateral radiographic views of the chest acquired. RADIATION DOSE: NA LIMITATIONS: none FINDINGS: LUNGS AND PLEURA: Mild COPD. Mild chronic interstitial changes. Mild apical pleural-pare nchymal scarring. Lungs appear free of active infiltrates. No effusions. MEDIASTINUM AND HILAR STRUCTURES: No masses or contour abnormalities. HEART AND VASCULAR STRUCTURES: Heart normal size. No evidence for failure. BONES: No acute findings. HARDWARE: None in the chest. OTHER: No other significant finding. IMPRESSION: Chronic changes without evidence of acute cardiopulmonary disease. TECHNICAL DOCUMENTATION: JOB ID: [id number] [email or web address]- All Rights Reserved Reading location - IP/workstation name: [email or web address]
== END ==
LOC: RAD 11:41
PROVIDERS: ATTEND Physician Assistant
DX: R05 Cough (principal); R06.00 Dyspnea, unspecified
CPT/HCPCS: 36600; 71046; 82803

== ENCOUNTER → 2017-11-29 | Outpatient (CLI) | payer MEDICARE ==
--- NOTE | 2017-11-29 12:26 | RADIOLOGY REPORT (SQ) ---
EXAM DESCRIPTION: CT LUNG CANCER SCREENING COMPLETED DATE/TIME: 11/29/2017 10:09 am REASON FOR STUDY: PERSONAL HISTORY OF NICOTINE DEPENDENCE R05 COUGH R06.00 DYSPNEA, UNSPECIFIED Z 87.891 PERSONAL HISTORY OF NICOTINE DEPENDENCE Has the patient had a Chest CT scan within the past year? Yes Was the patient offered tobacco cessation counseling? No Was the patient engaged in shared decision making for this test? Yes Does the patient have signs or symptoms of Lung Cancer? No no Is the patient a smoker? No How many packs per year? 365 How many years since quitting smoking? 1 year Patients age: 77 COMPARISON: None. TECHNIQUE: Low Dose CT scan performed of the chest without intravenous contrast for purposes of scre ening for lung cancer. Images reviewed with lung, soft tissue and bone windows. Reconstructed coron al and sagittal MPR images reviewed. All images stored on PACS. All CT scanners at this facility use dose modulation, iterative reconstruction, and/or weight based d osing when appropriate to reduce radiation dose to as low as reasonably achievable (ALARA). [facility]: Dose Right [facility]: CareDose [facility]: Dose Right [facility]: Teradose 4D [facility]: [employer] RADIATION DOSE: mGy. . LIMITATIONS: No technical limitations. FINDINGS: LUNG NODULES: Biapical pleural-parenchymal scarring is present. This is stable compared to 05/31/2017. No worrisome pulmonary nodules. REMAINING LUNGS AND PLEURA: No pleural effusions or calcifications. No pneumothorax. HILAR AND MEDIASTINAL STRUCTURES: No identified masses. Stable subcarinal 2.5 x 1.6 cm lymph node, s table less than 1 cm short axis prevascular, precarinal, and AP window lymph nodes. HEART AND VASCULAR STRUCTURES: No aortic aneurysm. No pericardial effusion. No cardiac devices. CORONARY ARTERY CALCIFICATIONS: Mild to moderate calcifications. UPPER ABDOMEN, THYROID, BONES, OTHER SOFT TISSUES: No significant findings. IMPRESSION: BENIGN FINDINGS IN THE LUNGS. NO OTHER CLINICALLY SIGNIFICANT/POTENTIALLY CLINICALLY SIGNIFICANT FINDINGS LUNGRADS: LUNGRADS: 2 BENIGN APPEARANCE OR BEHAVIOR. NODULES WITH A VERY LOW LIKELIHOOD OF BECOMING A CLINICALLY ACTIVE CANCER DUE TO SIZE OR LACK OF GROWTH. MODIFIER: NONE. RECOMMENDATION: Continue annual screening with LDCT in 12 months. COMMENT: CRITERIA: Solid nodule(s): < 6 mm; new < 4 mm. Part solid nodule(s): < 6 mm total diameter on baseline screening. Non solid nodule(s) (GGN): < 20 mm OR ? 20 and unchanged or slowly growing. Category 3 or 4 modules unchanged for ? 3 months. TECHNICAL DOCUMENTATION: JOB ID: [id number] Quality ID # [id number]: Final reports with documentation of one or more dose reduction techniques (e.g., Au tomated exposure control, adjustment of the mA and/or kV according to patient size, use of iterative reconstruction technique) 2010 [facility] Radiology Reading location - IP/workstation name: [email or web address]
== END ==
LOC: RAD 09:51
PROVIDERS: ATTEND Physician Assistant
DX: Z12.2 Encounter for screening for malignant neoplasm of respiratory organs (principal); Z87.891 Personal history of nicotine dependence; I25.10 Atherosclerotic heart disease of native coronary artery without angina pectoris
CPT/HCPCS: G0297

== ENCOUNTER 2017-12-13 15:33 | Emergency (ER) | payer MEDICARE, MEDICAID ==
[2017-12-13] MEDS ORDERED: PREDNISONE 20 MG TABLET PO ONE (16:25)
--- NOTE | 2017-12-13 16:26 | ER Document Report ---
ED Medical Screen (RME) - General Chief Complaint: Shortness Of Breath Stated Complaint: SHORTNESS OF BREATH Time Seen by Provider: 12/13/17 16:24 Notes: Patient states that he is having significant shortness of breath since running out of prednisone 3 weeks ago. She states she has no relief from her inhalers but when she is on Pred does get relief. She did have a CT of her lungs done last week for "cancer screening". I looked the results of this test up in the EMR and they were negative. Patient states she also had a chest x-ray last week that was unremarkable. TRAVEL OUTSIDE OF THE [place] IN LAST 30 DAYS: No - Related Data Allergies/Adverse Reactions: No Known Drug Allergies Allergy (Verified 12/13/17 16:06) Past Medical History - Social History Chew tobacco use (# tins/day): No Frequency of alcohol use: None Drug Abuse: None Family history: Reviewed & Not Pertinent - Past Medical History Cardiac Medical History: Reports: Hx Congestive Heart Failure, Hx Hypercholesterolemia, Hx Hypertension Pulmonary Medical History: Reports: Hx COPD, Hx Sleep Apnea Denies: Hx Tuberculosis Endocrine Medical History: Reports: Hx Diabetes Mellitus Type 2, Hx Hypothyroidism Renal/ Medical History: Denies: Hx Peritoneal Dialysis Musculoskeltal Medical History: Reports Hx Arthritis Psychiatric Medical History: Denies: Hx Depression Past Surgical History: Reports: Hx Cardiac Surgery, Hx Hysterectomy, Hx Orthopedic Surgery - hips, Hx Vascular Surgery - Immunizations Hx Diphtheria, Pertussis, Tetanus Vaccination: Yes Physical Exam - Vital signs Vitals: Temp Pulse Resp BP Pulse Ox 98.1 F 105 H 18 154/44 H 96 12/13/17 15:46 12/13/17 15:46 12/13/17 15:46 12/13/17 15:46 12/13/17 15:46 Course - Vital Signs Vital signs: Temp Pulse Resp BP Pulse Ox 98.1 F 105 H 18 154/44 H 96 12/13/17 15:46 12/13/17 15:46 12/13/17 15:46 12/13/17 15:46 12/13/17 15:46 Doctor's Discharge - Discharge Referrals: ANSON HARTMAN PA-C [Primary Care Provider] - Follow up as needed
[2017-12-13 18:09] LABS: ABSOLUTE EOSINOPHILS # (AUTO) 0.1 10^3/uL (0.0-0.6); ABSOLUTE LYMPHOCYTES (AUTO) 1.3 10^3/uL (0.5-4.7); ABSOLUTE MONOCYTES (AUTO) 0.5 10^3/uL (0.1-1.4); ABSOLUTE NEUT (AUTO) 4.9 10^3/uL (1.7-8.2); BASOPHILS % (AUTO) 0.2 % (0-2); EOSINOPHILS % (AUTO) 1.3 % (0-6); HEMATOCRIT 29.8 % (36.0-47.0); HEMOGLOBIN 9.7 g/dL (12.0-15.5); LYMPHOCYTES % (AUTO) 18.9 % (13-45); MEAN CORPUSCULAR HEMOGLOBIN 25.7 pg (27.0-33.4); MEAN CORPUSCULAR HGB CONC 32.5 g/dL (32.0-36.0); MEAN CORPUSCULAR VOLUME 79 fl (80-97); PLATELET COUNT 235 10^3/uL (150-450); RED BLOOD COUNT 3.77 10^6/uL (3.72-5.28); SEGMENTED NEUTROPHILS % (AUTO) 72.6 % (42-78); TOTAL CELLS COUNTED % (AUTO) 100 %; WHITE BLOOD COUNT 6.8 10^3/uL (4.0-10.5)
--- NOTE | 2017-12-13 18:20 | ER Document Report ---
ED Respiratory Problem - General Chief Complaint: Shortness Of Breath Stated Complaint: SHORTNESS OF BREATH Time Seen by Provider: 12/13/17 16:24 Notes: The patient is a 77-year-old female, past medical history COPD, presents with shortness of breath for the past 3 weeks. She tried her inhaler without much relief of her symptoms. She is requesting prednisone, because she feels much better and can breath better when she is on prednisone. The APC at Dr. Santiago' s office tried other steroid inhalers, but the patient says that she will not refill her prednisone. She had a recent CT chest and chest x-ray last week which did not show any concerning abnormalities. Patient also has a rash on her bilateral extremities for several weeks and was started on medicine for psoriasis, but now is noticing worsening pain and redness in her bilateral shins over the past 2 days. She denies fevers, difficulty walking, chest pain, wheezing, hemoptysis, calf swelling or back pain. TRAVEL OUTSIDE OF THE [place] IN LAST 30 DAYS: No - Related Data Allergies/Adverse Reactions: No Known Drug Allergies Allergy (Verified 12/13/17 16:06) Past Medical History - General Information source: Patient - Social History Smoking Status: Former Smoker Chew tobacco use (# tins/day): No Frequency of alcohol use: None Drug Abuse: None Family History: Malignancy - Mother of a complication, father of COPD, both siblings of cancer, Other Patient has suicidal ideation: No Patient has homicidal ideation: No - Past Medical History Cardiac Medical History: Reports: Hx Congestive Heart Failure, Hx Hypercholesterolemia, Hx Hypertension Pulmonary Medical History: Reports: Hx COPD, Hx Sleep Apnea Denies: Hx Tuberculosis Endocrine Medical History: Reports: Hx Diabetes Mellitus Type 2, Hx Hypothyroidism Renal/ Medical History: Denies: Hx Peritoneal Dialysis Musculoskeltal Medical History: Reports Hx Arthritis Psychiatric Medical History: Denies: Hx Depression Past Surgical History: Reports: Hx Cardiac Surgery, Hx Hysterectomy, Hx Orthopedic Surgery - hips, Hx Vascular Surgery - Immunizations Hx Diphtheria, Pertussis, Tetanus Vaccination: Yes Hx Pneumococcal Vaccination: 09/08/13 Review of Systems - Review of Systems Notes: REVIEW OF SYSTEMS: CONSTITUTIONAL: -fevers, -chills EENT: -eye pain, -difficulty swallowing, -nasal congestion CARDIOVASCULAR: -chest pain, -syncope. RESPIRATORY: +cough, +SOB GASTROINTESTINAL: -abdominal pain, -nausea, -vomiting, -diarrhea GENITOURINARY: -dysuria, -hematuria MUSCULOSKELETAL: -back pain, -neck pain SKIN: +rash HEMATOLOGIC: -easy bruising or bleeding. LYMPHATIC: -swollen, enlarged glands. NEUROLOGICAL: -altered mental status or loss of consciousness, -headache, - neurologic symptoms PSYCHIATRIC: -anxiety, -depression. ALL OTHER SYSTEMS REVIEWED AND NEGATIVE. Physical Exam - Vital signs Vitals: Temp Pulse Resp BP Pulse Ox 98.1 F 105 H 18 154/44 H 96 12/13/17 15:46 12/13/17 15:46 12/13/17 15:46 12/13/17 15:46 12/13/17 15:46 - Notes Notes: PHYSICAL EXAMINATION: GENERAL: Well-appearing, well-nourished and in no acute distress. HEAD: Atraumatic, normocephalic. EYES: Pupils equal round and reactive to light, extraocular movements intact, sclera anicteric, conjunctiva are normal. ENT: nares patent, oropharynx clear without exudates. Moist mucous membranes. NECK: Normal range of motion, supple without lymphadenopathy LUNGS: No respiratory distress. Mild and expiratory wheezes. HEART: Regular rate and rhythm without murmurs ABDOMEN: Soft, nontender, normoactive bowel sounds. No guarding, no rebound. No masses appreciated. EXTREMITIES: Normal range of motion, no pitting or edema. No cyanosis. NEUROLOGICAL: Cranial nerves grossly intact. Normal speech, normal gait. Normal sensory and motor exams. PSYCH: Normal mood, normal affect. SKIN: Psoriatic lesions over arms and legs, erythema over bilateral shins that are tender, no crepitus. Course - Re-evaluation Re-evalutation: Patient appears well and is in no respiratory distress. Her initial mild tachycardia resolved and is most likely related to her recent albuterol inhaler prior to arrival. Will send her home with a few days of prednisone, but instructed her to follow-up with her research and development engineer for further evaluation and treatment of her COPD. With 2 days of worsening redness of her bilateral legs and pain, will treat her for cellulitis, although suspect that it is most likely related to her peripheral vascular disease. No signs of necrotizing fasciitis at this time. Patient given strict return precautions and she understands. - Vital Signs Vital signs: Temp Pulse Resp BP Pulse Ox 98.1 F 105 H 18 154/44 H 96 12/13/17 15:46 12/13/17 15:46 12/13/17 15:46 12/13/17 15:46 12/13/17 15:46 - Laboratory Result Diagrams: 12/13/17 17:49 12/13/17 17:49 Laboratory results interpreted by me: 12/13/17 12/13/17 17:49 17:49 Hgb 9.7 L Hct 29.8 L MCV 79 L MCH 25.7 L RDW 16.0 H Glucose 140 H AST 38 H Total Protein 6.2 L Discharge - Discharge Clinical Impression: Wheezing Cellulitis Qualifiers: Site of cellulitis: extremity Site of cellulitis of extremity: lower extremity Laterality: unspecified laterality Qualified Code(s): L03.119 - Cellulitis of unspecified part of limb Condition: Stable Disposition: HOME, SELF-CARE Additional Instructions: Take the antibiotics as prescribed for possible cellulitis. The rash may be related to poor leg circulation. Will be started on a short course of prednisone due to the wheezing, but your care should be directed by your research and development engineer. Return the ER if you have worsening symptoms or any other concerns. CELLULITIS: You have an infection of your skin and underlying soft tissues called cellulitis. This is due to bacteria, which can enter through any break in the skin, or even through an irritated hair follicle. Untreated, cellulitis will usually worsen. Antibiotics are required. Usually, warm packs or warm soaks, and elevation of the infected area are recommended. You should start getting better within 24 to 36 hours. Most infections respond quickly to the right medication. Follow-up care is important, however, to check for abscess (boil) formation, unsuspected foreign body, or resistant infection. If you develop fever, chills, or if the area of infection is becoming rapidly more swollen or painful, call the doctor at once. ANTIBIOTIC THERAPY: You have been given an antibiotic prescription. It's important that you take all the medication, unless instructed otherwise by your physician. Failure to complete the entire course can result in relapse of your condition. Common side effects of antibiotics include nausea, intestinal cramping, or diarrhea. Women may develop vaginal yeast infections, and babies can get yeast (thrush) in the mouth following the use of antibiotics. Contact your physician if you develop significant side effects from this medication. Allergy to this antibiotic can result in hives, wheezing, faintness, or itching. If symptoms of allergy occur, stop the medication and call the doctor. TRIMETHOPRIM-SULFA: You have been given a prescription for trimethoprim-sulfa (TMS, Septra, Bactrim). This is a combination antibiotic of the sulfa class, often used for urinary tract infections, middle ear infections, bronchitis, shigella intestinal infection, and Pneumocystis pneumonia. TMS is usually well-tolerated. Occasional side effects include nausea and decreased appetite. Septra is not recommended for infants less than two months of age. Do not take this medication if you have experienced severe side effects or allergy to sulfa medicine. You should stop this medicine at once and contact your physician if you develop any rash, joint pain, shortness of breath, bruising, or jaundice ( yellow color in the skin), or if you develop any other new or unusual symptoms. FOLLOW-UP CARE: If you have been referred to a physician for follow-up care, call the physician s office for an appointment as you were instructed or within the next two days. If you experience worsening or a significant change in your symptoms, notify the physician immediately or return to the Emergency Department at any time for re-evaluation. BRONCHITIS WITH BRONCHOSPASM (WHEEZING): You have bronchitis with bronchospasm (wheezing). Sometimes people develop wheezing with a chest cold. This occurs either because of an underlying tendency toward asthma or because the virus itself irritates the bronchial tubes. This irritation causes cough, shortness of breath, and wheezing. Emergency treatment of bronchospasm may include adrenaline shots or bronchodilator aerosol. You may feel lightheaded and have a rapid pulse for an hour or two. Rest and get plenty of fluids. At home, we'll treat you with a bronchodilator inhaler. Corticosteroids may be required for some patients. Until you recover, avoid chemical fumes, dusts, pollens, and exercising in very cold or dry air. If you smoke, stop now! Most cases of bronchitis get better without antibiotics. We prescribe antibiotics when we believe bacteria are damaging your airways, or if there's high risk the bronchitis will worsen into pneumonia. Increase your fluid intake. A cool mist humidifier may make your lungs more comfortable. An expectorant (cough medicine that loosens phlegm) can help. Repeated episodes of bronchitis and bronchospasm may result in lung damage -- for example, chronic bronchitis, recurrent pneumonias, or emphysema. If you develop a fever, increased wheezing, chest pain, or severe shortness of breath, you should contact the doctor immediately. INHALED BRONCHODILATORS: You have received a treatment of and/or prescription for an inhaled bronchodilator -- a medication which stimulates the airways in the lung to dilate. This improves the flow of air in asthma, bronchitis, and emphysema. These medicines have some similarity to adrenaline, and can cause similar side effects: shakiness, racing heart, and a sense of nervousness. These side effects decrease with time. Contact your doctor if these side effects are severe. Do not over-use the medicine. Too-frequent use of the inhaler may make it ineffective. Call your doctor if the inhaler is not controlling your symptoms at the prescribed doses. STEROID MEDICATION: You have been given an injection of or oral medicine of the cortisone/ steroid class. This medication is used to control inflammation or allergy. Winston t is usually only given for a short period of time, until the acute process subsides. There are usually no side effects from short-term use of cortisone-like medications. Some persons feel an increased sense of well-being and are not sleepy at bedtime. Long-term use of cortisone medications is best avoided, unless required for a severe condition. If your condition does not remit, or relapses after the course of corticosteroid medication, you should consult your physician. USE OF ACETAMINOPHEN (Tylenol): Acetaminophen may be taken for pain relief or fever control. It's much safer than aspirin, offering a wider range of "safe" dosages. It is safe during . Some brand names are Tylenol, Panadol, Datril, Anacin 3, Tempra, and Liquiprin. Acetaminophen can be repeated every four hours. The following are maximum recommended dosages: >89 pounds or adults 650 mg to 900 mg Acetaminophen can be repeated every four hours. Maximum dose not to exceed 4000 mg a day. SMOKING: If you smoke, you should stop smoking. The tar and chemicals in cigarette smoke are harmful. Smoking has been shown to cause: emphysema chronic bronchitis lung cancer mouth and throat cancer stomach and pancreas cancer premature aging defects In addition, smoking increases ear and lung infections in children of smokers. FOLLOW-UP CARE: If you have been referred to a physician for follow-up care, call the physician s office for an appointment as you were instructed or within the next two days. If you experience worsening or a significant change in your symptoms, notify the physician immediately or return to the Emergency Department at any time for re-evaluation. Prescriptions: Prednisone [Deltasone 10 mg Tablet] 10 mg PO ASDIR PRN #21 tablet PRN Reason: Sulfamethoxazole/Trimethoprim [Bactrim 400-80 mg Tablet] 1 each PO Q12H 10 Days tablet Forms: Elevated Blood Pressure Referrals: ANSON HARTMAN PA-C [Primary Care Provider] - Follow up as needed JERALD SANTIAGO MD [ACTIVE STAFF] - Follow up as needed
[2017-12-13 18:28] LABS: ALANINE AMINOTRANSFERASE 29 U/L (9-52); ALBUMIN 3.8 g/dL (3.5-5.0); ALKALINE PHOSPHATASE 58 U/L (38-126); ANION GAP 16 (5-19); ASPARTATE AMINO TRANSFERASE 38 U/L (14-36); BILIRUBIN,DIRECT 0.2 mg/dL (0.0-0.4); BILIRUBIN,TOTAL 0.3 mg/dL (0.2-1.3); BLOOD UREA NITROGEN 10 mg/dL (7-20); CALCIUM 9.9 mg/dL (8.4-10.2); CARBON DIOXIDE 28 mmol/L (22-30); CHLORIDE 100 mmol/L (98-107); GLUCOSE 140 mg/dL (75-110); POTASSIUM 4.3 mmol/L (3.6-5.0); SODIUM 143.6 mmol/L (137-145); TOTAL PROTEIN 6.2 g/dL (6.3-8.2)
[2017-12-13 19:21] VITALS: BP 157/45
== END 2017-12-13 19:23 | disposition home or self-care (01) ==
LOC: ER 15:33
DX: J44.9 Chronic obstructive pulmonary disease, unspecified (principal); L03.119 Cellulitis of unspecified part of limb; L40.9 Psoriasis, unspecified; E11.51 Type 2 diabetes mellitus with diabetic peripheral angiopathy without gangrene; R06.02 Shortness of breath; R05 Cough; I10 Essential (primary) hypertension; Z87.891 Personal history of nicotine dependence
CPT/HCPCS: 99284; 36415; 85025; 80053; A9270; J7512

== ENCOUNTER 2018-06-11 19:27 | Inpatient (IN) | payer MEDICARE, MEDICAID ==
--- NOTE | 2018-06-11 19:49 | ER Document Report ---
ED General - General Stated Complaint: SHORTNESS OF BREATH Time Seen by Provider: 06/11/18 19:37 Mode of Arrival: Medic Information source: Emergency Med Personnel Cannot obtain history due to: Altered mental status TRAVEL OUTSIDE OF THE [place] IN LAST 30 DAYS: No - HPI Patient complains to provider of: shortness of breath Onset: Other - 77-year-old female with a history of COPD and emphysema that presents for evaluation of hypoxia in the setting of having run out of oxygen while driving. She was seen by EMS at that time found to have a oxygen saturation in the low 70s with marked tachypnea and altered mental status. Rest of history is limited secondary to patient's obtunded status - Related Data Allergies/Adverse Reactions: No Known Drug Allergies Allergy (Verified 12/13/17 16:06) Past Medical History - General Information source: Patient, Emergency Med Personnel - Social History Smoking Status: Former Smoker Family History: Malignancy - Mother of a complication, father of COPD, both siblings of cancer, Other - Past Medical History Cardiac Medical History: Reports: Hx Congestive Heart Failure, Hx Hypercholesterolemia, Hx Hypertension Pulmonary Medical History: Reports: Hx COPD, Hx Sleep Apnea Denies: Hx Tuberculosis Endocrine Medical History: Reports: Hx Diabetes Mellitus Type 2, Hx Hypothyroidism Renal/ Medical History: Denies: Hx Peritoneal Dialysis Musculoskeletal Medical History: Reports Hx Arthritis Psychiatric Medical History: Denies: Hx Depression Past Surgical History: Reports: Hx Cardiac Surgery, Hx Hysterectomy, Hx Orthopedic Surgery - hips, Hx Vascular Surgery - Immunizations Hx Diphtheria, Pertussis, Tetanus Vaccination: Yes Hx Pneumococcal Vaccination: 09/08/13 Review of Systems - Review of Systems -: Yes ROS unobtainable due to patient's medical condition Physical Exam - Vital signs Vitals: Resp Pulse Ox 32 H 97 06/11/18 19:30 06/11/18 19:30 - General General appearance: Lethargic In distress: Moderate - HEENT Head: Normocephalic Eyes: Normal, Scleral icterus Cornea: Normal Extraocular movements intact: Yes Eyelashes: Normal Pupils: PERRL - Respiratory Respiratory status: Respiratory distress, Labored, Tachypnea, Tripod position Chest status: Nontender Breath sounds: Rhonchi, Wheezing Chest palpation: Normal - Cardiovascular Rhythm: Tachycardia Heart sounds: Normal auscultation Murmur: No - Abdominal Inspection: Normal Distension: No distension Tenderness: Nontender - Back Back: Normal - Extremities General upper extremity: Normal inspection, Nontender, Normal strength, Normal temperature General lower extremity: Normal inspection, Nontender, Normal strength, Normal temperature - Neurological Neuro grossly intact: No Cognition: Inattentive [place] Coma Scale Eye Opening: To Voice [place] Coma Scale Verbal: Confused [place] Coma Scale Motor: Obeys Commands [place] Coma Scale Total: 13 Cranial nerves: Normal Motor strength normal: LUE, RUE, LLE, RLE - Psychological Associated symptoms: Normal affect Course - Re-evaluation Re-evalutation: 06/12/18 04:03 This 77-year-old female presented in extremis, she was on CPAP after having been seen by EMS with a saturation in the low 70s. She was given a nebulization in route and started on oxygen. On immediate examination in the room she is somnolent, has a CPAP in place and is able to follow simple questions. Her initial pulse oximetry demonstrated a sat in the mid 80s, administering nebulizations and increasing her pressures to 15/8 we are able to increase her oxygen saturation to the 90s. Obtained a venous blood gas as well as broad blood work and treated her for presumptive COPD exacerbation as she had been hypoxic likely for several hours. She was given steroids as well as albuterol. Her EKG was nondiagnostic her blood work was relatively unremarkable. Defer treatment of pneumonia given the acuity of onset making this much less likely an infectious etiology. However she does have edema on her chest x-ray and an elevated proBNP as such initiated diuresis with 40 mg of IV Lasix. On reassessment of this patient 2 hours after initiation of BiPAP her mental status has improved, she has begun to urinate and her lungs sound much better than previously. She is alert and able to answer questions appropriately now. Her respiratory status has greatly improved. We will continue to keep on BiPAP and slightly decrease her settings, will also obtain a repeat VBG. Repeat VBG demonstrates the patient's hypercarbia is resolving. Contacted the on-call hospitalist for evaluation and admission of this patient with her on BiPAP at this time and treatment for possible heart failure exacerbation as well as COPD exacerbation likely this is a mixed combination as the cause of her underlying shortness of breath. We will plan for this patient undergo admission and IMCU with re-examination and a repeat VBG. We will continue to monitor in emergency department until she is appropriately transported. - Vital Signs Vital signs: Temp Pulse Resp BP Pulse Ox 98.9 F 25 H 131/55 H 97 06/11/18 19:32 06/12/18 02:02 06/12/18 02:02 06/12/18 02:02 - Laboratory Result Diagrams: 06/11/18 19:30 06/11/18 19:30 Laboratory results interpreted by me: 06/11/18 06/11/18 06/11/18 19:30 19:30 19:30 WBC 16.2 H Hgb 10.2 L Hct 33.9 L MCH 24.6 L MCHC 30.1 L RDW 18.4 H Seg Neutrophils % 82.8 H Absolute Neutrophils 13.4 H VBG pH VBG pCO2 Glucose 168 H Calcium 10.3 H AST 45 H NT-Pro-B Natriuret Pep 1020 H 06/11/18 06/11/18 19:30 21:05 WBC Hgb Hct MCH MCHC RDW Seg Neutrophils % Absolute Neutrophils VBG pH 7.16 L* 7.24 L VBG pCO2 80.8 H* 73.0 H* Glucose Calcium AST NT-Pro-B Natriuret Pep Critical Care Note - Critical Care Note Total time excluding time spent on procedures (mins): 40 Discharge - Discharge Clinical Impression: COPD with exacerbation, Acute hypoxemic respiratory failure, Hypoxemia, Hypercarbia Condition: Stable Disposition: ADMITTED INPATIENT Admitting Provider: Hospitalist Unit Admitted: [facility]
[2018-06-11 19:54] LABS: TOTAL CELLS COUNTED % (AUTO) 100 %
[2018-06-11 19:56] LABS: VENOUS BLOOD BASE EXCESS -1.6 mmol/L; VENOUS BLOOD HCO3 28.4 mmol/L (20-32)
[2018-06-11 19:58] LABS: ABSOLUTE LYMPHOCYTES (AUTO) 2.2 10^3/uL (0.5-4.7); ABSOLUTE MONOCYTES (AUTO) 0.5 10^3/uL (0.1-1.4); ABSOLUTE NEUT (AUTO) 13.4 10^3/uL (1.7-8.2); BASOPHILS % (AUTO) 0.1 % (0-2); EOSINOPHILS % (AUTO) 0.3 % (0-6); HEMATOCRIT 33.9 % (36.0-47.0); HEMOGLOBIN 10.2 g/dL (12.0-15.5); LYMPHOCYTES % (AUTO) 13.7 % (13-45); MEAN CORPUSCULAR HEMOGLOBIN 24.6 pg (27.0-33.4); MEAN CORPUSCULAR HGB CONC 30.1 g/dL (32.0-36.0); MEAN CORPUSCULAR VOLUME 82 fl (80-97); MONOCYTES % (AUTO) 3.1 % (3-13); PLATELET COUNT 296 10^3/uL (150-450); RED BLOOD COUNT 4.16 10^6/uL (3.72-5.28); RED CELL DISTRIBUTION WIDTH 18.4 % (11.5-14.0); SEGMENTED NEUTROPHILS % (AUTO) 82.8 % (42-78); WHITE BLOOD COUNT 16.2 10^3/uL (4.0-10.5)
[2018-06-11 19:59] LABS: VENOUS BLOOD PCO2 80.8 mmHg (35-63); VENOUS BLOOD PH 7.16 (7.30-7.42)
[2018-06-11 20:16] LABS: ALANINE AMINOTRANSFERASE 33 U/L (9-52); ALBUMIN 4.7 g/dL (3.5-5.0); ALKALINE PHOSPHATASE 62 U/L (38-126); ANION GAP 13 (5-19); ASPARTATE AMINO TRANSFERASE 45 U/L (14-36); BILIRUBIN,DIRECT 0.1 mg/dL (0.0-0.4); BILIRUBIN,TOTAL 0.4 mg/dL (0.2-1.3); BLOOD UREA NITROGEN 10 mg/dL (7-20); CALCIUM 10.3 mg/dL (8.4-10.2); CARBON DIOXIDE 29 mmol/L (22-30); CHLORIDE 102 mmol/L (98-107); GLUCOSE 168 mg/dL (75-110); LIPASE 52.8 U/L (23-300); POTASSIUM 4.9 mmol/L (3.6-5.0); SODIUM 143.8 mmol/L (137-145); TOTAL PROTEIN 7.5 g/dL (6.3-8.2)
[2018-06-11 20:35] LABS: TROPONIN I 0.049 ng/mL
[2018-06-11] MEDS ORDERED: IPRATROPIUM/ALBUTEROL 0.5-2.5 MG/3 ML AMPUL NEB ONE (20:35)
[2018-06-11] MEDS ORDERED: METHYLPREDNISOLONE INJ 125 MG/2 ML SDV IV ONE (20:35)
--- NOTE | 2018-06-11 20:46 | RADIOLOGY REPORT (SQ) ---
EXAM DESCRIPTION: CHEST SINGLE VIEW COMPLETED DATE/TIME: 06/11/2018 7:51 pm REASON FOR STUDY: short of breath COMPARISON: 10/23/2017 EXAM PARAMETERS: NUMBER OF VIEWS: One view. TECHNIQUE: Single frontal radiographic view of the chest acquired. RADIATION DOSE: NA LIMITATIONS: None. FINDINGS: LUNGS AND PLEURA: There is considerable opacification in the left lung base. The left hea rt border is indistinct. Ill-defined opacification in the right lung base. MEDIASTINUM AND HILAR STRUCTURES: No masses. Contour normal. HEART AND VASCULAR STRUCTURES: Heart size is borderline. No pulmonary edema. BONES: No acute findings. HARDWARE: None in the chest. OTHER: No other significant finding. IMPRESSION: Borderline cardiomegaly without pulmonary edema. Left lower lobe pneumonia. Possible r ight lower lobe pneumonia. TECHNICAL DOCUMENTATION: JOB ID: [id number] [employer]- All Rights Reserved Reading location - IP/workstation name: [email or web address]
[2018-06-11 21:14] LABS: VENOUS BLOOD BASE EXCESS 2.1 mmol/L; VENOUS BLOOD HCO3 30.7 mmol/L (20-32); VENOUS BLOOD PH 7.24 (7.30-7.42)
[2018-06-11] MEDS ORDERED: FUROSEMIDE INJ/PF 40 MG/4 ML SDV IV ONE (22:59)
[2018-06-12 00:41] LABS: VENOUS BLOOD BASE EXCESS 4.6 mmol/L; VENOUS BLOOD HCO3 31.8 mmol/L (20-32); VENOUS BLOOD PCO2 60.9 mmHg (35-63); VENOUS BLOOD PH 7.34 (7.30-7.42)
[2018-06-12] MEDS ORDERED: IPRATROPIUM/ALBUTEROL 0.5-2.5 MG/3 ML AMPUL NEB PRN (02:14)
[2018-06-12] MEDS ORDERED: DEXTROSE 50%-WATER 25 GM/50 ML DISP.SYRIN IV PRN ×4 (02:14→02:23)
[2018-06-12] MEDS ORDERED: GLUCAGON,HUMAN RECOMB 1 MG INJ SUBCUT PRN (02:14)
[2018-06-12] MEDS ORDERED: DEXTROSE 40% GEL 15 GM TUBE PO PRN ×4 (02:14→02:23)
[2018-06-12] MEDS ORDERED: ACETAMINOPHEN 325 MG TABLET PO PRN (02:14)
[2018-06-12] MEDS ORDERED: PROMETHAZINE HCL INJ 25 MG/1 ML VIAL IV PRN ×2 (02:14→09:00)
[2018-06-12] MEDS ORDERED: MAG HYDROX/AL HYDROX/SIMETH SUSP 30 ML UDCUP PO PRN (02:14)
[2018-06-12] MEDS ORDERED: PROMETHAZINE HCL 25 MG TABLET PO PRN (02:14)
[2018-06-12] MEDS ORDERED: GLUCAGON,HUMAN RECOMB 1 MG INJ IM PRN (02:23)
[2018-06-12] MEDS ORDERED: AZITHROMYCIN INJ 500 MG VIAL IV PRN (02:45)
[2018-06-12] MEDS ORDERED: [UNRECOGNIZED DRUG - OTHER] IV ONE (02:56)
[2018-06-12] MEDS ORDERED: CEFTRIAXONE IV ONE (02:56)
[2018-06-12] MEDS: INSULIN LISPRO 100 UNIT/ML 3 ML VIAL SUBCUT PRN ×5 (02:59→22:33)
[2018-06-12] MEDS ORDERED: CEFTRIAXONE 2 GM/D5W RTU 2 GM/50 ML RTUPB IV ONE ×2 (03:00→22:34)
--- NOTE | 2018-06-12 03:25 | PDOC H&P ---
History of Present Illness Admission Date/PCP: 06/12/18 01:15 ANSON HARTMAN PA-C Patient complains of: Shortness of breath History of Present Illness: NIELS ALSTON is a 77 year old female with chronic respiratory failure secondary to COPD on 2 L oxygen at home. Patient comes to the ED after being with progressive shortness of breath during the last 2 weeks, associated with wheezing, chest congestion, minimal cough and minimal whitish sputum, denies fever, chills, nausea or vomiting. Apparently patient ran out of oxygen today, EMS was called and she was found hypoxic at 70%, initially placed on CPAP and given nebulizer treatments, she arrived to the ED somnolent and was initiated on BiPAP. Initially felt that the patient can have CHF exacerbation and given 40 mg of IV Lasix. Chest x-ray shows left lower lobe pneumonia with possible right lower lobe pneumonia. Patient tells me that when he is not on prednisone her COPD symptoms exacerbates , she went to see her primary care physician the day of admission and she was prescribed prednisone, she took 20 mg but did not help. VBG 7.16/80, 7.24/73, 7.34/60.9, apparently her CO2 baseline is around 50. Patient is currently alert and oriented x4. Past Medical History Cardiac Medical History: Reports: Congestive Heart Failure, Hyperlipidema, Hypertension Pulmonary Medical History: Reports: Chronic Obstructive Pulmonary Disease (COPD) , Sleep Apnea Denies: Tuberculosis Endocrine Medical History: Reports: Diabetes Mellitus Type 2, Hypothyroidism Musculoskeltal Medical History: Reports: Arthritis Psychiatric Medical History: Denies: Depression Past Surgical History Past Surgical History: Reports: Hysterectomy, Orthopedic Surgery - hips, Vascular Surgery Social History Smoking Status: Former Smoker - Quit more than 20 years ago Frequency of Alcohol Use: None Hx Recreational Drug Use: No Drugs: None Hx Prescription Drug Abuse: No Past Social History Note: Lives alone and is concerned about her dog and being alone. Has home health going twice a week. Family History Family History: Malignancy - Mother of a complication, father of COPD, both siblings of cancer, Other Parental Family History Reviewed: Yes - As above Children Family History Reviewed: NA Sibling(s) Family History Reviewed.: NA Medication/Allergy Home Medications: Levothyroxine Sodium [Synthroid] 175 mcg PO DAILY #30 tablet 07/20/16 Metoprolol Succinate [Toprol Xl 25 mg Tab.sr] 25 mg PO DAILY #30 tab.sr.24h Aspirin [Ecotrin 81 mg EC Tablet] 81 mg PO DAILY #30 tabec 08/12/16 Isosorbide Mononitrate [Imdur 30 mg Tablet.er] 30 mg PO DAILY #30 tab.er.24h Metformin HCl [Glucophage] 1,000 mg PO BID 08/16/16 Ipratropium/Albuterol Sulfate [Duoneb 3 ml Ampul] 3 ml NEB RTQ4 vial.neb Ipratropium/Albuterol Sulfate [Duoneb 3 ml Ampul] 3 ml NEB RTQ4HP PRN vial.neb 08/22/16 Budesonide/Formoterol Fumarate [Symbicort Hfa 160-4.5 Mcg Inhaler 6 gm] 2 puff IH Q12 #1 inhaler 08/25/16 Fenofibrate Nanocrystallized [Fenofibrate] 145 mg PO DAILY #30 tablet 08/25/16 Atorvastatin Calcium 20 mg PO DAILY 12/13/17 Insulin Glargine,Hum.rec.anlog [Chey Solkristie] 44 units SUBCUT QHS 12/13/17 Prednisone [Deltasone 10 mg Tablet] 10 mg PO ASDIR PRN #21 tablet 12/13/17 Sulfamethoxazole/Trimethoprim [Bactrim 400-80 mg Tablet] 1 each PO Q12H 10 Days tablet 12/13/17 Tiotropium [place] [Spiriva] 2 sprays IH DAILY 12/13/17 Triamcinolone Acetonide [Aristocort 0.1% Cream] 1 applic TOP BID 12/13/17 Allergies/Adverse Reactions: No Known Drug Allergies Allergy (Verified 12/13/17 16:06) Review of Systems Review of Systems: As outlined in the HPI, others negative Physical Exam Vital Signs: Temp Pulse Resp BP Pulse Ox 98.9 F 25 H 131/55 H 97 06/11/18 19:32 06/12/18 02:02 06/12/18 02:02 06/12/18 02:02 Additional comments: General appearance: Elderly, mildly deconditioned, alert and cooperative, and appears to be in no acute distress, wearing BiPAP Head: Normocephalic Eyes: PEERL, EOMI, vision is grossly intact. Ears: External auditory canal and tympanic membranes clear, hearing grossly intact. Nose: No nasal discharge. Throat: Oral cavity and pharynx normal. No inflammation, swelling, exudate or lesions. Neck: Neck supple, nontender without lymphadenopathy, masses or thyromegaly. Cardiac: Normal S1 and S2. No S3, S4 or murmurs. Rhythm is regular. There is no peripheral edema, cyanosis or pallor. Extremities are warm and well perfused. Capillary refill is less than 2 seconds. No carotid bruits. Lungs: Bilateral moderate decreased air entry with expiratory wheezing, diffuse rhonchi and crackles. Not using accessory muscles. Abdomen: Positive bowel sounds. Soft. Nondistended, nontender. No guarding or rebound. No masses. No hepatosplenomegaly Extremities: No significant deformity or joint abnormality. No edema. Peripheral pulses intact. No varicosities. Neurological: Cranial nerves II through XII grossly intact. Strength and sensation symmetric and intact throughout. Reflexes 2+ throughout. Skin: Skin normal color, texture and turgor with no lesions or eruptions, warm and dry. Psychiatric: The mental examination revealed the patient was oriented to person , place, and time. The patient was able to demonstrate good judgment on recent , without hallucinations, abnormal affect or abnormal behaviors. Results Laboratory Results: 06/11/18 06/11/18 06/11/18 19:30 19:30 19:30 WBC 16.2 H RBC 4.16 Hgb 10.2 L Hct 33.9 L MCV 82 MCH 24.6 L MCHC 30.1 L RDW 18.4 H Plt Count 296 Seg Neutrophils % 82.8 H Lymphocytes % 13.7 Monocytes % 3.1 Eosinophils % 0.3 Basophils % 0.1 Absolute Neutrophils 13.4 H Absolute Lymphocytes 2.2 Absolute Monocytes 0.5 Absolute Eosinophils 0.0 Absolute Basophils 0.0 VBG pH VBG pCO2 VBG HCO3 Sodium 143.8 Potassium 4.9 Chloride 102 Carbon Dioxide 29 Anion Gap 13 BUN 10 Creatinine 0.91 Est GFR ( Amer) > 60 Est GFR (Non-Af Amer) > 60 Glucose 168 H POC Glucose Calcium 10.3 H Total Bilirubin 0.4 Direct Bilirubin 0.1 AST 45 H ALT 33 Alkaline Phosphatase 62 Troponin I 0.049 NT-Pro-B Natriuret Pep 1020 H Total Protein 7.5 Albumin 4.7 Lipase 52.8 06/11/18 06/11/18 06/12/18 19:30 21:05 00:30 WBC RBC Hgb Hct MCV MCH MCHC RDW Plt Count Seg Neutrophils % Lymphocytes % Monocytes % Eosinophils % Basophils % Absolute Neutrophils Absolute Lymphocytes Absolute Monocytes Absolute Eosinophils Absolute Basophils VBG pH 7.16 L* 7.24 L 7.34 VBG pCO2 80.8 H* 73.0 H* 60.9 VBG HCO3 28.4 Sodium Potassium Chloride Carbon Dioxide Anion Gap BUN Creatinine Est GFR ( Amer) Est GFR (Non-Af Amer) Glucose POC Glucose Calcium Total Bilirubin Direct Bilirubin AST ALT Alkaline Phosphatase Troponin I NT-Pro-B Natriuret Pep Total Protein Albumin Lipase 06/12/18 02:52 WBC RBC Hgb Hct MCV MCH MCHC RDW Plt Count Seg Neutrophils % Lymphocytes % Monocytes % Eosinophils % Basophils % Absolute Neutrophils Absolute Lymphocytes Absolute Monocytes Absolute Eosinophils Absolute Basophils VBG pH VBG pCO2 VBG HCO3 Sodium Potassium Chloride Carbon Dioxide Anion Gap BUN Creatinine Est GFR ( Amer) Est GFR (Non-Af Amer) Glucose POC Glucose 299 H Calcium Total Bilirubin Direct Bilirubin AST ALT Alkaline Phosphatase Troponin I NT-Pro-B Natriuret Pep Total Protein Albumin Lipase Impressions: Chest X-Ray 06/11/18 19:38 IMPRESSION: Borderline cardiomegaly without pulmonary edema. Left lower lobe pneumonia. Possible right lower lobe pneumonia. Assessment & Plan - Diagnosis (1) Acute on chronic respiratory failure Qualifiers: Respiratory failure complication: hypoxia and hypercapnia Qualified Code(s) : J96.21 - Acute and chronic respiratory failure with hypoxia; J96.22 - Acute and chronic respiratory failure with hypercapnia; J96.22 - Acute and chronic respiratory failure with hypercapnia; J96.22 - Acute and chronic respiratory failure with hypercapnia Is this a current diagnosis for this admission?: Yes Plan: Patient comes with progressive respiratory failure, initially found saturating in the 70s which has improved with BiPAP. Also her initial CO2 was 80 improving on BiPAP. (2) Community acquired pneumonia Qualifiers: Laterality: left Is this a current diagnosis for this admission?: Yes Plan: Patient has left lower lobe infiltrate and possible right lower lobe infiltrate. I will place the patient on IV Rocephin and IV azithromycin. RT consult. Nebulizer treatments as needed. Methylprednisolone 60 mg every 8 hours. Sputum culture. Incentive spirometry. Please follow blood cultures. (3) COPD with exacerbation Is this a current diagnosis for this admission?: Yes Plan: As per prior assessment. Patient has quit smoking more than 20 years ago. (4) Chronic diastolic CHF (congestive heart failure) Is this a current diagnosis for this admission?: Yes Plan: Patient is an echocardiogram done in 2016 showing diastolic heart failure. In the emergency department initially thought that this was CHF exacerbation and gave her 40 mg of IV Lasix, for my reading does not show any pulmonary edema. I am going to hold on giving her more IV Lasix. Initial BNP was 1020 higher from the last 08/2015 that was 252, we do not have any older in the middle, it can be progressing over 2 years or been multifactorial secondary to her severe respiratory distress. (5) Diabetes mellitus type 2 in obese Is this a current diagnosis for this admission?: Yes Plan: Continue with metformin and insulin lispro. Accu-Cheks q. before meals and at bedtime, insulin lispro sliding scale and hypoglycemia protocol. (6) Hypertension Qualifiers: Hypertension type: essential hypertension Qualified Code(s): I10 - Essential (primary) hypertension Is this a current diagnosis for this admission?: Yes Plan: Continue with home antihypertensive medications. (7) Hypothyroid Qualifiers: Hypothyroidism type: unspecified Qualified Code(s): E03.9 - Hypothyroidism , unspecified Is this a current diagnosis for this admission?: Yes Plan: Continue with Synthroid - Time Time Spent: 30 to 50 Minutes - Inpatient Certification Based on my medical assessment, after consideration of the patient's comorbidities, presenting symptoms, or acuity I expect that the services needed warrant INPATIENT care.: Yes I certify that my determination is in accordance with my understanding of Medicare's requirements for reasonable and necessary INPATIENT services [42 CFR 412.3e].: Yes Medical Necessity: Risk of Complication if Not Cared For in Hospital - Plan Summary Plan Summary: Plan discussed with patient, agrees with plan
[2018-06-12] MEDS: METHYLPREDNISOLONE INJ 125 MG/2 ML SDV IV SCH ×3 (05:13→22:33)
[2018-06-12] MEDS: AZITHROMYCIN 500 MG in DEXTROSE 5%-WATER 250 ML IV SCH (05:13)
[2018-06-12 06:29] LABS: ARTERIAL BLOOD BASE EXCESS 5.3 mmol/L; ARTERIAL BLOOD H2CO3 1.54 mmol/L (1.05-1.35); ARTERIAL BLOOD O2 SATURATION 98.7 % (94-98); ARTERIAL BLOOD PCO2 51.3 mmHg (35-45); ARTERIAL BLOOD PO2 135.8 mmHg (80-100); ARTERIAL BLOOD TOTAL CO2 32.6 mmol/L (21-25)
[2018-06-12 06:30] LABS: ARTERIAL BLOOD FIO2 50%
[2018-06-12 06:38] LABS: ABSOLUTE LYMPHOCYTES (AUTO) 0.5 10^3/uL (0.5-4.7); ABSOLUTE MONOCYTES (AUTO) 0.1 10^3/uL (0.1-1.4); ABSOLUTE NEUT (AUTO) 7.5 10^3/uL (1.7-8.2); BASOPHILS % (AUTO) 0.1 % (0-2); HEMATOCRIT 27.6 % (36.0-47.0); HEMOGLOBIN 8.8 g/dL (12.0-15.5); LYMPHOCYTES % (AUTO) 6.1 % (13-45); MEAN CORPUSCULAR HEMOGLOBIN 25.4 pg (27.0-33.4); MEAN CORPUSCULAR VOLUME 79 fl (80-97); MONOCYTES % (AUTO) 1.6 % (3-13); PLATELET COUNT 174 10^3/uL (150-450); RED BLOOD COUNT 3.48 10^6/uL (3.72-5.28); RED CELL DISTRIBUTION WIDTH 18.2 % (11.5-14.0); SEGMENTED NEUTROPHILS % (AUTO) 92.2 % (42-78); TOTAL CELLS COUNTED % (AUTO) 100 %; WHITE BLOOD COUNT 8.2 10^3/uL (4.0-10.5)
[2018-06-12 06:43] LABS: ANION GAP 8 (5-19); BLOOD UREA NITROGEN 15 mg/dL (7-20); CALCIUM 9.1 mg/dL (8.4-10.2); CARBON DIOXIDE 33 mmol/L (22-30); CHLORIDE 98 mmol/L (98-107); GLUCOSE 275 mg/dL (75-110); POTASSIUM 4.8 mmol/L (3.6-5.0); SODIUM 139.3 mmol/L (137-145)
[2018-06-12] MEDS ORDERED: LEVOTHYROXINE SODIUM 0.075 MG TABLET PO SCH (08:00)
[2018-06-12] MEDS ORDERED: ALBUTEROL SULFATE 0.083% NEB 2.5 MG/3 ML AMPUL NEB PRN (08:58)
[2018-06-12] MEDS: METOPROLOL SUCCINATE 25 MG TAB.SR.24H PO SCH (09:33)
[2018-06-12] MEDS: ATORVASTATIN CALCIUM 20 MG TABLET PO SCH (09:34)
[2018-06-12] MEDS: ISOSORBIDE MONONITRATE 30 MG TAB.ER.24H PO SCH (09:35)
[2018-06-12] MEDS: ASPIRIN 81 MG TABLET, ENT COATED PO SCH (09:35)
[2018-06-12] MEDS: FENOFIBRATE NANOCRYSTALLIZED 145 MG TABLET PO SCH (09:36)
[2018-06-12] MEDS: ENOXAPARIN SODIUM INJ 40 MG/0.4 ML DISP.SYRIN SUBCUT SCH (09:38)
[2018-06-12] MEDS: TRIAMCINOLONE ACETONIDE 0.1% CREAM 15 GM TOP SCH ×2 (09:39→17:44)
[2018-06-12] MEDS ORDERED: BUDESONIDE/FORMOTEROL 160-4.5 MCG 60 PUFF/6 GM MDI IH SCH (10:00)
[2018-06-12] MEDS ORDERED: (PENDING PHARMACY ID) (Levothyroxine Sodium [Synthroid] 175 MCG) PO SCH (10:00)
[2018-06-12] MEDS ORDERED: TIOTROPIUM BROMIDE DPI 5 CAP/KIT (18 MCG/CAP) IH SCH (10:00)
[2018-06-12] MEDS: IPRATROPIUM/ALBUTEROL 0.5-2.5 MG/3 ML AMPUL NEB SCH ×2 (13:48→19:41)
--- NOTE | 2018-06-12 16:32 | PDOC PROGRESS REPORT ---
Subjective Progress Note for:: 06/12/18 Subjective:: The patient is a 77-year-old female with a past medical history of CHF, hypertension, hyperlipidemia COPD home O2 dependent 2 L/min, HÉCTOR, DM 2, hypothyroidism, arthritis, and obesity who was admitted 06/12/18 for acute on chronic respiratory failure with hypoxia secondary to bilateral lower lobe community-acquired pneumonia. The patient was seen on morning rounds while still in the emergency department. She was found resting in bed comfortably on supplemental oxygen via nasal cannula at 4 L/min; she just been transitioned off of BiPAP by respiratory therapy. She was noted to be mildly tachypneic with a respiratory rate in the low 20s but fully conversational without pauses or distress. She reports that she has had several weeks of gradually worsening dyspnea with development of fatigue and a nonproductive cough over the last few days. She states that she had just been seen by her primary care provider and placed on oral prednisone the day of her admission. She was on her way to the store when she developed sudden worsening of symptoms (precipitated by running out of oxygen) which prompted her to stop at an EMS station for vital sign check and subsequently was transferred to the emergency department for hypoxia with an oxygen saturation in the 70s on room air. Currently the patient reports mild dyspnea at rest, a slightly productive cough , and fatigue. She denies fever, chills, headache, dizziness, chest pain, palpitation, orthopnea, abdominal pain, nausea vomiting and diarrhea. She has no new questions or concerns. No concerns per nursing. Reason For Visit: COPD EXACERBATION, ACUTE ON CHRONIC RESPIRATORY Physical Exam Vital Signs: Temp Pulse Resp BP Pulse Ox 98 F 85 18 136/48 H 98 06/12/18 11:25 06/12/18 13:48 06/12/18 13:48 06/12/18 11:25 06/12/18 13:48 Intake & Output 06/11/18 06/12/18 06/13/18 06:59 06:59 06:59 Intake Total 300 Balance 300 Weight 99.337 kg 98 kg General appearance: PRESENT: no acute distress, cooperative - Pleasant, obese, well-developed, well-nourished Head exam: PRESENT: atraumatic, normocephalic Eye exam: PRESENT: conjunctiva pink, EOMI, PERRLA. ABSENT: scleral icterus Ear exam: PRESENT: normal external ear exam Mouth exam: PRESENT: moist, tongue midline Neck exam: ABSENT: carotid bruit, JVD, lymphadenopathy, thyromegaly Respiratory exam: PRESENT: decreased breath sounds, prolonged expiratory phas, rhonchi, symmetrical, tachypnea, wheezes - Tight throughout. ABSENT: rales Cardiovascular exam: PRESENT: RRR, +S1, +S2. ABSENT: diastolic murmur, rubs, systolic murmur Pulses: PRESENT: normal dorsalis pedis pul Vascular exam: PRESENT: normal capillary refill GI/Abdominal exam: PRESENT: normal bowel sounds, soft. ABSENT: distended, guarding, mass, organolmegaly, rebound, tenderness Rectal exam: PRESENT: deferred Extremities exam: PRESENT: full ROM. ABSENT: calf tenderness, clubbing, pedal edema Neurological exam: PRESENT: alert, awake, oriented to person, oriented to place , oriented to time, oriented to situation, CN II-XII grossly intact. ABSENT: motor sensory deficit Psychiatric exam: PRESENT: appropriate affect, normal mood. ABSENT: homicidal ideation, suicidal ideation Skin exam: PRESENT: dry, intact, warm. ABSENT: cyanosis, rash Results Laboratory Results: 06/12/18 06:12 06/12/18 06:12 06/12/18 06/12/18 06/12/18 05:50 06:12 06:12 WBC 8.2 RBC 3.48 L Hgb 8.8 L Hct 27.6 L MCV 79 L MCH 25.4 L MCHC 32.0 RDW 18.2 H Plt Count 174 Seg Neutrophils % 92.2 H Lymphocytes % 6.1 L Monocytes % 1.6 L Eosinophils % 0.0 Basophils % 0.1 Absolute Neutrophils 7.5 Absolute Lymphocytes 0.5 Absolute Monocytes 0.1 Absolute Eosinophils 0.0 Absolute Basophils 0.0 Carbonic Acid 1.54 H HCO3/H2CO3 Ratio 20:1 ABG pH 7.40 ABG pCO2 51.3 H ABG pO2 135.8 H ABG HCO3 31.0 H ABG O2 Saturation 98.7 H ABG Base Excess 5.3 FiO2 50% Sodium 139.3 Potassium 4.8 Chloride 98 Carbon Dioxide 33 H Anion Gap 8 BUN 15 Creatinine 0.84 Est GFR ( Amer) > 60 Est GFR (Non-Af Amer) > 60 Glucose 275 H Calcium 9.1 Impressions: Chest X-Ray 06/11/18 19:38 IMPRESSION: Borderline cardiomegaly without pulmonary edema. Left lower lobe pneumonia. Possible right lower lobe pneumonia. Assessment & Plan - Diagnosis (1) Acute on chronic respiratory failure Qualifiers: Respiratory failure complication: hypoxia and hypercapnia Qualified Code(s) : J96.21 - Acute and chronic respiratory failure with hypoxia; J96.22 - Acute and chronic respiratory failure with hypercapnia; J96.22 - Acute and chronic respiratory failure with hypercapnia; J96.22 - Acute and chronic respiratory failure with hypercapnia Is this a current diagnosis for this admission?: Yes Plan: The patient was admitted with acute on chronic respiratory failure; home O2 dependent at 2 L/min, requiring greater than her normal oxygen supplementation secondary to community-acquired pneumonia and subsequent COPD exacerbation. VBG revealed a P CO2 of 80.8 on presentation to the emergency department; has trended down with BiPAP use. ABG this morning revealed CO2 of 51.3 which appears to be near the patient's baseline hypercapnia. She is admitted to the medical floor on continuous cardiac telemetry. She is provided supplemental oxygen and BiPAP as needed to maintain oxygen saturations greater than 88%. She has been initiated on IV Solu-Medrol for COPD exacerbation with scheduled and as needed nebulizer treatments. Antibiotic therapy for CAP is still outlined below. Incentive spirometry and flutter valve to bedside. Mucinex twice daily. (2) Community acquired pneumonia Qualifiers: Laterality: left Lung location: lower lobe of lung Qualified Code(s): J18.1 - Lobar pneumonia, unspecified organism Is this a current diagnosis for this admission?: Yes Plan: The patient presented with acute on chronic respiratory failure with a prodrome of steadily worsening respiratory status, fatigue, and nonproductive cough over the previous 2-3 weeks. X-ray reveals a left lower lobe and possible right lower lobe pneumonia. WBCs were elevated to 16.2; leukocytosis now resolved. Blood cultures pending. Sputum cultures pending. She has been empirically placed on IV Rocephin and azithromycin. Remaining treatment plan as above. (3) COPD with exacerbation Is this a current diagnosis for this admission?: Yes Plan: The patient's home dose Symbicort is held while receiving scheduled duo nebs. Supplemental oxygen and BiPAP as needed to maintain oxygen saturations. Scheduled duo nebs with as needed albuterol. IV Solu-Medrol. Mucinex twice daily. Incentive spirometry and flutter valve to bedside. (4) Chronic diastolic CHF (congestive heart failure) Is this a current diagnosis for this admission?: Yes Plan: ED provider felt the patient to be mildly fluid overloaded; appears euvolemic at this time after receiving IV furosemide. ProBNP was mildly elevated at 1020. Troponin indeterminate at 0.049 Chest x-ray revealed borderline cardiomegaly without pulmonary edema. EKG demonstrated sinus tachycardia without acute changes. Her home medications are continued: Isosorbide 30 mg daily and metoprolol XL 25 mg daily with daily aspirin, statin, and fenofibrate therapy. She is placed on a cardiac diet with daily weights. We will monitor for need for additional diuresis. Will repeat cardiac enzymes and BNP with am labs. (5) Diabetes mellitus type 2 in obese Is this a current diagnosis for this admission?: Yes Plan: Patient is placed on a consistent carb diet. She is placed on Lantus 30 units daily (slight decrease from her home dose of Toujeo 44 units). Accu-Cheks before meals and at bedtime with Humalog for sliding scale coverage. Registered dietitian is consulted. (6) Hyperlipidemia Qualifiers: Hyperlipidemia type: unspecified Qualified Code(s): E78.5 - Hyperlipidemia , unspecified Is this a current diagnosis for this admission?: Yes (7) Hypertension Qualifiers: Hypertension type: essential hypertension Qualified Code(s): I10 - Essential (primary) hypertension Is this a current diagnosis for this admission?: Yes Plan: Acceptable blood pressures for age on home medication regiment. (8) Hypothyroid Qualifiers: Hypothyroidism type: unspecified Qualified Code(s): E03.9 - Hypothyroidism , unspecified Is this a current diagnosis for this admission?: Yes Plan: Home dose levothyroxine is continued. (9) Obstructive sleep apnea Is this a current diagnosis for this admission?: Yes Plan: Supplemental oxygen and BiPAP nightly. - Time Time Spent with patient: 25-34 minutes Medications reviewed and adjusted accordingly: Yes Anticipated discharge: Home Within: within 72 hours - Inpatient Certification Based on my medical assessment, after consideration of the patient's comorbidities, presenting symptoms, or acuity I expect that the services needed warrant INPATIENT care.: Yes I certify that my determination is in accordance with my understanding of Medicare's requirements for reasonable and necessary INPATIENT services [42 CFR 412.3e].: Yes Medical Necessity: Failure to Improve With Outpatient Therapy, Need for Nebulizer Therapy and Monitoring of Response, Need for IV Antibiotics
[2018-06-12] MEDS ORDERED: (PENDING PHARMACY ID) (Insulin Aspart [Novolog Flexpen] 5 UNIT) SUBCUT SCH (17:00)
--- NOTE | 2018-06-12 21:07 | EKG REPORT ---
SEVERITY:- OTHERWISE NORMAL ECG - SINUS TACHYCARDIA : Confirmed by: Akhil Lechuga 12-Jun-2018 21:06:13
[2018-06-12] MEDS ORDERED: CEFTRIAXONE 2 GM/D5W RTU 2 GM/50 ML RTUPB IV SCH (22:00)
[2018-06-12] MEDS ORDERED: INSULIN GLARGINE HUM REC ANLOG 44 UNIT SUBCUT SCH (22:00)
[2018-06-12] MEDS: GUAIFENESIN 600 MG TABLET.SA PO SCH (22:33)
[2018-06-12] MEDS: TEMAZEPAM 7.5 MG CAPSULE PO PRN (22:33)
[2018-06-13] MEDS: IPRATROPIUM/ALBUTEROL 0.5-2.5 MG/3 ML AMPUL NEB SCH ×5 (02:11→23:13)
[2018-06-13] MEDS: AZITHROMYCIN 500 MG in DEXTROSE 5%-WATER 250 ML IV SCH (05:20)
[2018-06-13] MEDS: METHYLPREDNISOLONE INJ 125 MG/2 ML SDV IV SCH ×2 (05:21→13:50)
[2018-06-13] MEDS: LEVOTHYROXINE SODIUM 0.15 MG TABLET PO SCH (05:21)
[2018-06-13 06:05] LABS: HEMATOCRIT 26.2 % (36.0-47.0); HEMOGLOBIN 8.3 g/dL (12.0-15.5); MEAN CORPUSCULAR HEMOGLOBIN 24.9 pg (27.0-33.4); MEAN CORPUSCULAR HGB CONC 31.7 g/dL (32.0-36.0); MEAN CORPUSCULAR VOLUME 79 fl (80-97); PLATELET COUNT 176 10^3/uL (150-450); RED BLOOD COUNT 3.34 10^6/uL (3.72-5.28); RED CELL DISTRIBUTION WIDTH 17.6 % (11.5-14.0); WHITE BLOOD COUNT 10.5 10^3/uL (4.0-10.5)
[2018-06-13 06:31] LABS: ANION GAP 10 (5-19); BLOOD UREA NITROGEN 24 mg/dL (7-20); CALCIUM 9.6 mg/dL (8.4-10.2); CARBON DIOXIDE 31 mmol/L (22-30); CHLORIDE 98 mmol/L (98-107); GLUCOSE 235 mg/dL (75-110); POTASSIUM 4.8 mmol/L (3.6-5.0); SODIUM 139.4 mmol/L (137-145)
[2018-06-13 06:38] LABS: TROPONIN I 0.08 ng/mL
[2018-06-13 06:59] LABS: ARTERIAL BLOOD BASE EXCESS 4.4 mmol/L; ARTERIAL BLOOD H2CO3 1.35 mmol/L (1.05-1.35); ARTERIAL BLOOD HCO3 29.1 mmol/L (20-24); ARTERIAL BLOOD O2 SATURATION 97.6 % (94-98); ARTERIAL BLOOD PCO2 44.8 mmHg (35-45); ARTERIAL BLOOD PH 7.43 (7.35-7.45); ARTERIAL BLOOD PO2 97.7 mmHg (80-100); ARTERIAL BLOOD TOTAL CO2 30.5 mmol/L (21-25)
[2018-06-13 07:00] LABS: ARTERIAL BLOOD FIO2 3L
[2018-06-13] MEDS: INSULIN LISPRO 100 UNIT/ML 3 ML VIAL SUBCUT PRN ×4 (07:38→21:23)
[2018-06-13] MEDS ORDERED: INSULIN GLARGINE,HUM.REC.ANLOG 300 UNIT/3 ML INSULN.PEN SUBCUT SCH ×2 (10:00)
[2018-06-13] MEDS: GUAIFENESIN 600 MG TABLET.SA PO SCH ×2 (10:20→21:24)
[2018-06-13] MEDS: FENOFIBRATE NANOCRYSTALLIZED 145 MG TABLET PO SCH (10:20)
[2018-06-13] MEDS: ISOSORBIDE MONONITRATE 30 MG TAB.ER.24H PO SCH (10:20)
[2018-06-13] MEDS: ASPIRIN 81 MG TABLET, ENT COATED PO SCH (10:20)
[2018-06-13] MEDS: ENOXAPARIN SODIUM INJ 40 MG/0.4 ML DISP.SYRIN SUBCUT SCH (10:20)
[2018-06-13] MEDS: ATORVASTATIN CALCIUM 20 MG TABLET PO SCH (10:21)
[2018-06-13] MEDS: METOPROLOL SUCCINATE 25 MG TAB.SR.24H PO SCH (10:21)
[2018-06-13] MEDS: TRIAMCINOLONE ACETONIDE 0.1% CREAM 15 GM TOP SCH ×2 (10:22→17:42)
[2018-06-13] MEDS: FUROSEMIDE 20 MG TABLET PO SCH (13:50)
[2018-06-13] MEDS ORDERED: METHYLPREDNISOLONE INJ 125 MG/2 ML SDV IV SCH (15:00)
--- NOTE | 2018-06-13 15:41 | PDOC PROGRESS REPORT ---
Subjective Progress Note for:: 06/13/18 Subjective:: The patient is a 77-year-old female with a past medical history of CHF, hypertension, hyperlipidemia COPD home O2 dependent 2 L/min, HÉCTOR, DM 2, hypothyroidism, arthritis, and obesity who was admitted 06/12/18 for acute on chronic respiratory failure with hypoxia secondary to bilateral lower lobe community-acquired pneumonia. The patient was seen on morning rounds. She was found resting in bed comfortably on supplemental oxygen via nasal cannula at 3 L/min; she did use BiPAP overnight. She reports that she is feeling much better today; her dyspnea while at rest has resolved. She continues to have mild dyspnea on exertion and noted that she felt dizzy this morning when she was up to the restroom. She continues to have a slight, nonproductive, cough. She denies fever, chills, headache, chest pain, palpitation, orthopnea, abdominal pain, nausea vomiting and diarrhea. She has no new questions or concerns. No concerns per nursing. Reason For Visit: COPD EXACERBATION, ACUTE ON CHRONIC RESPIRATORY Physical Exam Vital Signs: Temp Pulse Resp BP Pulse Ox 97.8 F 86 24 H 142/62 H 96 06/13/18 11:34 06/13/18 13:37 06/13/18 13:50 06/13/18 11:34 06/13/18 13:50 Intake & Output 06/12/18 06/13/18 06/14/18 06:59 06:59 06:59 Intake Total 300 832 Balance 300 832 Weight 99.337 kg 57.3 kg General appearance: PRESENT: no acute distress, cooperative, well-developed, well-nourished Head exam: PRESENT: atraumatic, normocephalic Eye exam: PRESENT: conjunctiva pink, EOMI, PERRLA. ABSENT: scleral icterus Ear exam: PRESENT: normal external ear exam Mouth exam: PRESENT: moist, tongue midline Neck exam: ABSENT: carotid bruit, JVD, lymphadenopathy, thyromegaly Respiratory exam: PRESENT: clear to auscultation jessenia, decreased breath sounds - Bibasilar, prolonged expiratory phas, symmetrical, unlabored, other - Supplemental oxygen via nasal cannula. ABSENT: rales, rhonchi, wheezes Cardiovascular exam: PRESENT: RRR, +S1, +S2. ABSENT: diastolic murmur, rubs, systolic murmur Pulses: PRESENT: normal dorsalis pedis pul Vascular exam: PRESENT: normal capillary refill GI/Abdominal exam: PRESENT: normal bowel sounds, soft. ABSENT: distended, guarding, mass, organolmegaly, rebound, tenderness Rectal exam: PRESENT: deferred Extremities exam: PRESENT: full ROM. ABSENT: calf tenderness, clubbing, pedal edema Neurological exam: PRESENT: alert, awake, oriented to person, oriented to place , oriented to time, oriented to situation, CN II-XII grossly intact. ABSENT: motor sensory deficit Psychiatric exam: PRESENT: appropriate affect, normal mood. ABSENT: homicidal ideation, suicidal ideation Skin exam: PRESENT: dry, intact, warm. ABSENT: cyanosis, rash Results Laboratory Results: 06/13/18 05:31 06/13/18 05:31 06/13/18 06/13/18 06/13/18 05:31 05:31 06:45 WBC 10.5 RBC 3.34 L Hgb 8.3 L Hct 26.2 L MCV 79 L MCH 24.9 L MCHC 31.7 L RDW 17.6 H Plt Count 176 Carbonic Acid 1.35 HCO3/H2CO3 Ratio 21:1 ABG pH 7.43 ABG pCO2 44.8 ABG pO2 97.7 ABG HCO3 29.1 H ABG O2 Saturation 97.6 ABG Base Excess 4.4 FiO2 3L Sodium 139.4 Potassium 4.8 Chloride 98 Carbon Dioxide 31 H Anion Gap 10 BUN 24 H Creatinine 0.88 Est GFR ( Amer) > 60 Est GFR (Non-Af Amer) > 60 Glucose 235 H Calcium 9.6 06/13/18 06/13/18 05:31 12:37 Troponin I 0.080 0.050 NT-Pro-B Natriuret Pep 871 H Impressions: Chest X-Ray 06/11/18 19:38 IMPRESSION: Borderline cardiomegaly without pulmonary edema. Left lower lobe pneumonia. Possible right lower lobe pneumonia. Assessment & Plan - Diagnosis (1) Acute on chronic respiratory failure Qualifiers: Respiratory failure complication: hypoxia and hypercapnia Qualified Code(s) : J96.21 - Acute and chronic respiratory failure with hypoxia; J96.22 - Acute and chronic respiratory failure with hypercapnia; J96.22 - Acute and chronic respiratory failure with hypercapnia; J96.22 - Acute and chronic respiratory failure with hypercapnia Is this a current diagnosis for this admission?: Yes Plan: Improved; the patient is maintaining oxygen saturations on 3 L/min. She did use BiPAP overnight. She tells me that she has been recommended to have a CPAP for sleep apnea, however, her insurance has not approved this. The patient was admitted with acute on chronic respiratory failure; home O2 dependent at 2 L/min, requiring greater than her normal oxygen supplementation secondary to community-acquired pneumonia and subsequent COPD exacerbation. ABG is improved; 7.43/44.8/97.7/29.1 on nasal canula She is admitted to the medical floor on continuous cardiac telemetry. She is provided supplemental oxygen and BiPAP as needed to maintain oxygen saturations greater than 88%. She has been initiated on IV Solu-Medrol for COPD exacerbation with scheduled and as needed nebulizer treatments. Antibiotic therapy for CAP is still outlined below. Incentive spirometry and flutter valve to bedside. Mucinex twice daily. (2) Community acquired pneumonia Qualifiers: Laterality: left Lung location: lower lobe of lung Qualified Code(s): J18.1 - Lobar pneumonia, unspecified organism Is this a current diagnosis for this admission?: Yes Plan: Improved. The patient presented with acute on chronic respiratory failure with a prodrome of steadily worsening respiratory status, fatigue, and nonproductive cough over the previous 2-3 weeks. X-ray reveals a left lower lobe and possible right lower lobe pneumonia. WBCs were elevated to 16.2; leukocytosis now resolved. Blood cultures growing Gm (+) cocci in one set. Sputum cultures pending. She has been empirically placed on IV Rocephin and azithromycin. Remaining treatment plan as above. (3) COPD with exacerbation Is this a current diagnosis for this admission?: Yes Plan: Improved; lung sounds are clear today, reduced oxygen requirement. The patient's home dose Symbicort is held while receiving scheduled duo nebs. Supplemental oxygen and BiPAP as needed to maintain oxygen saturations. Scheduled duo nebs with as needed albuterol. IV Solu-Medrol; will begin weaning. Mucinex twice daily. Incentive spirometry and flutter valve to bedside. (4) Chronic diastolic CHF (congestive heart failure) Is this a current diagnosis for this admission?: Yes Plan: ED provider felt the patient to be mildly fluid overloaded; appears euvolemic at this time after receiving IV furosemide. ProBNP was mildly elevated at 1020; decreased to 871 this morning. Troponin indeterminate but stable; 0.049--> 0.080--> 0.050 Chest x-ray revealed borderline cardiomegaly without pulmonary edema. EKG demonstrated sinus tachycardia without acute changes. Her home medications are continued: Isosorbide 30 mg daily and metoprolol XL 25 mg daily with daily aspirin, statin, and fenofibrate therapy. Start furosemide 20 mg twice daily. She is placed on a cardiac diet with daily weights. (5) Diabetes mellitus type 2 in obese Is this a current diagnosis for this admission?: Yes Plan: Elevated blood glucose; likely secondary to steroid therapy. Patient is placed on a consistent carb diet. Increase Lantus to 32 units daily (slight decrease from her home dose of Toujeo 44 units). Accu-Cheks before meals and at bedtime with Humalog for sliding scale coverage. Registered dietitian is consulted. (6) Hyperlipidemia Qualifiers: Hyperlipidemia type: unspecified Qualified Code(s): E78.5 - Hyperlipidemia , unspecified Is this a current diagnosis for this admission?: Yes Plan: Continue statin therapy. (7) Hypertension Qualifiers: Hypertension type: essential hypertension Qualified Code(s): I10 - Essential (primary) hypertension Is this a current diagnosis for this admission?: Yes Plan: Acceptable blood pressures for age on home medication regiment. (8) Hypothyroid Qualifiers: Hypothyroidism type: unspecified Qualified Code(s): E03.9 - Hypothyroidism , unspecified Is this a current diagnosis for this admission?: Yes Plan: Home dose levothyroxine is continued. (9) Obstructive sleep apnea Is this a current diagnosis for this admission?: Yes Plan: Supplemental oxygen and BiPAP nightly. Pt reports difficulty with insurance in obtaining CPAP and home oxygen; discharge planning is consulted. Recommend follow up with established textile pin worker, Dr. Santiago, after discharge. (10) Anemia Qualifiers: Anemia type: unspecified type Qualified Code(s): D64.9 - Anemia, unspecified Is this a current diagnosis for this admission?: Yes Plan: Chronic anemia; likely related to chronic diseases and poor nutrition (obesity, uncontrolled insulin dependent diabetes mellitus, CHF) Admitted with Hgb 10.2; has trended down to 8.3 No evidence of active bleeding. Will obtain occult stool and anemia panel with a.m labs. Monitor daily CBC. - Time Time Spent with patient: 15-24 minutes Medications reviewed and adjusted accordingly: Yes Anticipated discharge: Home Within: within 48 hours - Inpatient Certification Based on my medical assessment, after consideration of the patient's comorbidities, presenting symptoms, or acuity I expect that the services needed warrant INPATIENT care.: Yes I certify that my determination is in accordance with my understanding of Medicare's requirements for reasonable and necessary INPATIENT services [42 CFR 412.3e].: Yes Medical Necessity: Need for Nebulizer Therapy and Monitoring of Response, Need for IV Antibiotics
[2018-06-13] MEDS: CEFTRIAXONE SODIUM 2,000 MG in DEXTROSE 5%-WATER 100 ML IV SCH (21:24)
[2018-06-13] MEDS: METHYLPREDNISOLONE INJ 40 MG/1 ML SDV IV SCH (21:32)
[2018-06-13] MEDS: TEMAZEPAM 7.5 MG CAPSULE PO PRN (23:15)
[2018-06-14] MEDS: LEVOTHYROXINE SODIUM 0.15 MG TABLET PO SCH (05:52)
[2018-06-14] MEDS: METHYLPREDNISOLONE INJ 40 MG/1 ML SDV IV SCH ×2 (05:52→15:06)
[2018-06-14] MEDS: AZITHROMYCIN 500 MG in DEXTROSE 5%-WATER 250 ML IV SCH (05:52)
[2018-06-14 05:57] LABS: HEMATOCRIT 25.9 % (36.0-47.0); HEMOGLOBIN 8.4 g/dL (12.0-15.5); MEAN CORPUSCULAR HEMOGLOBIN 25.2 pg (27.0-33.4); MEAN CORPUSCULAR HGB CONC 32.5 g/dL (32.0-36.0); MEAN CORPUSCULAR VOLUME 78 fl (80-97); PLATELET COUNT 170 10^3/uL (150-450); RED BLOOD COUNT 3.34 10^6/uL (3.72-5.28); RED CELL DISTRIBUTION WIDTH 17.1 % (11.5-14.0); WHITE BLOOD COUNT 10.6 10^3/uL (4.0-10.5)
[2018-06-14 06:23] LABS: ANION GAP 12 (5-19); BLOOD UREA NITROGEN 25 mg/dL (7-20); CALCIUM 9.6 mg/dL (8.4-10.2); CARBON DIOXIDE 32 mmol/L (22-30); CHLORIDE 98 mmol/L (98-107); GLUCOSE 168 mg/dL (75-110); POTASSIUM 3.9 mmol/L (3.6-5.0)
[2018-06-14] MEDS: FUROSEMIDE 20 MG TABLET PO SCH ×2 (07:41→15:06)
[2018-06-14] MEDS: INSULIN LISPRO 100 UNIT/ML 3 ML VIAL SUBCUT PRN ×4 (07:48→21:12)
[2018-06-14] MEDS: IPRATROPIUM/ALBUTEROL 0.5-2.5 MG/3 ML AMPUL NEB SCH ×3 (08:08→19:46)
[2018-06-14] MEDS: GUAIFENESIN 600 MG TABLET.SA PO SCH ×2 (09:40→21:13)
[2018-06-14] MEDS: ASPIRIN 81 MG TABLET, ENT COATED PO SCH (09:41)
[2018-06-14] MEDS: ATORVASTATIN CALCIUM 20 MG TABLET PO SCH (09:41)
[2018-06-14] MEDS: FENOFIBRATE NANOCRYSTALLIZED 145 MG TABLET PO SCH (09:41)
[2018-06-14] MEDS: METOPROLOL SUCCINATE 25 MG TAB.SR.24H PO SCH (09:41)
[2018-06-14] MEDS: ISOSORBIDE MONONITRATE 30 MG TAB.ER.24H PO SCH (09:41)
[2018-06-14] MEDS: TRIAMCINOLONE ACETONIDE 0.1% CREAM 15 GM TOP SCH ×2 (09:43→17:29)
[2018-06-14] MEDS: ENOXAPARIN SODIUM INJ 40 MG/0.4 ML DISP.SYRIN SUBCUT SCH (09:43)
--- NOTE | 2018-06-14 10:20 | Physician Advisory Note ---
Physician Advisor ProgressNote .: Pursuant to the plan for [facility], I have reviewed the medical record for this patient. Physician Advisor Statement: Nice documentation of ac/chr resp failure w/details, dx further supported by VBG /ABG. Please consider documenting, if you agree: "PNA, suspect gram- , [community acquired]" (need type organism whenever there is PNA. If underlying lung dz, potential for GNeg is high. Cx.s may or may not turn (+) for offending organism.) thx, CK
[2018-06-14] MEDS: INSULIN GLARGINE,HUM.REC.ANLOG 300 UNIT/3 ML INSULN.PEN SUBCUT SCH (10:54)
[2018-06-14] MEDS ORDERED: PROMETHAZINE HCL INJ 25 MG/1 ML VIAL IV PRN (11:30)
--- NOTE | 2018-06-14 17:24 | PDOC PROGRESS REPORT ---
Subjective Progress Note for:: 06/14/18 Subjective:: The patient is a 77-year-old female with a past medical history of CHF, hypertension, hyperlipidemia COPD home O2 dependent 2 L/min, HÉCTOR, DM 2, hypothyroidism, arthritis, and obesity who was admitted 06/12/18 for acute on chronic respiratory failure with hypoxia secondary to bilateral lower lobe community-acquired pneumonia. The patient was seen on morning rounds. She was found sitting up to the edge of the bed comfortably on supplemental oxygen via nasal cannula at 2 L/min; she did not use BiPAP overnight. She reports that she is feeling much better today ; her dyspnea while at rest has resolved and she was able to ambulate to the restroom without difficulty today. She continues to have a slight, nonproductive, cough. She denies fever, chills, headache, chest pain, palpitation, orthopnea, abdominal pain, nausea vomiting and diarrhea. She has no new questions or concerns. No concerns per nursing. Reason For Visit: COPD EXACERBATION, ACUTE ON CHRONIC RESPIRATORY Physical Exam Vital Signs: Temp Pulse Resp BP Pulse Ox 98.5 F 82 12 130/78 H 98 06/14/18 16:00 06/14/18 16:00 06/14/18 16:00 06/14/18 16:00 06/14/18 16:00 Intake & Output 06/13/18 06/14/18 06/15/18 06:59 06:59 06:59 Intake Total 832 2025 1177 Output Total 2600 1000 Balance 832 -575 177 Weight 87.3 kg 87 kg General appearance: PRESENT: no acute distress, cooperative, obese, well- developed, well-nourished Head exam: PRESENT: atraumatic, normocephalic Eye exam: PRESENT: conjunctiva pink, EOMI, PERRLA. ABSENT: scleral icterus Ear exam: PRESENT: normal external ear exam Mouth exam: PRESENT: moist, tongue midline Neck exam: ABSENT: carotid bruit, JVD, lymphadenopathy, thyromegaly Respiratory exam: PRESENT: decreased breath sounds - Bibasilar, prolonged expiratory phas, symmetrical, unlabored, other - Supplemental oxygen via nasal cannula. ABSENT: rales, rhonchi, wheezes Cardiovascular exam: PRESENT: RRR. ABSENT: diastolic murmur, rubs, systolic murmur Pulses: PRESENT: normal dorsalis pedis pul Vascular exam: PRESENT: normal capillary refill GI/Abdominal exam: PRESENT: normal bowel sounds, soft. ABSENT: distended, guarding, mass, organolmegaly, rebound, tenderness Rectal exam: PRESENT: deferred Extremities exam: PRESENT: full ROM. ABSENT: calf tenderness, clubbing, pedal edema Neurological exam: PRESENT: alert, awake, oriented to person, oriented to place , oriented to time, oriented to situation, CN II-XII grossly intact. ABSENT: motor sensory deficit Psychiatric exam: PRESENT: appropriate affect, normal mood. ABSENT: homicidal ideation, suicidal ideation Skin exam: PRESENT: dry, intact, warm. ABSENT: cyanosis, rash Results Laboratory Results: 06/14/18 04:36 06/14/18 04:36 06/14/18 06/14/18 06/14/18 04:36 04:36 07:00 WBC 10.6 H RBC 3.34 L Hgb 8.4 L Hct 25.9 L MCV 78 L MCH 25.2 L MCHC 32.5 RDW 17.1 H Plt Count 170 Sodium 142.0 Potassium 3.9 Chloride 98 Carbon Dioxide 32 H Anion Gap 12 BUN 25 H Creatinine 0.81 Est GFR ( Amer) > 60 Est GFR (Non-Af Amer) > 60 Glucose 168 H Calcium 9.6 Stool Occult Blood NEGATIVE 06/13/18 06/13/18 06/13/18 05:31 12:37 17:56 Troponin I 0.080 0.050 0.054 NT-Pro-B Natriuret Pep 871 H Impressions: Chest X-Ray 06/11/18 19:38 IMPRESSION: Borderline cardiomegaly without pulmonary edema. Left lower lobe pneumonia. Possible right lower lobe pneumonia. Assessment & Plan - Diagnosis (1) Acute on chronic respiratory failure Qualifiers: Respiratory failure complication: hypoxia and hypercapnia Qualified Code(s) : J96.21 - Acute and chronic respiratory failure with hypoxia; J96.22 - Acute and chronic respiratory failure with hypercapnia; J96.22 - Acute and chronic respiratory failure with hypercapnia; J96.22 - Acute and chronic respiratory failure with hypercapnia Is this a current diagnosis for this admission?: Yes Plan: Acute failure appears to be resolved. She is now maintaining oxygen saturations on room air while at rest and was ambulatory on room air with pulse oximetry of 91%. Although the patient reports that she is home O2 dependent at 2 L/min and that running out of her oxygen contributed to her COPD exacerbation and subsequent admission, she did not qualify for oxygen today. Nursing has documented 94% resting room air saturation and 91% while ambulating on room air. ABG (06/13) is improved; 7.43/44.8/97.7/29.1 on nasal canula She is admitted to the medical floor on continuous cardiac telemetry. She is provided supplemental oxygen and BiPAP as needed to maintain oxygen saturations greater than 88%. IV Solu-Medrol; further weaning today Scheduled and as needed nebulizer treatments; decreasing frequency of scheduled nebs today. Antibiotic therapy for CAP is still outlined below. Incentive spirometry and flutter valve to bedside. Mucinex twice daily. Will obtain overnight pulse oximetry study to evaluate for overnight oxygen needs. Anticipate transition to p.o. prednisone and discharge to home tomorrow. (2) Community acquired pneumonia Qualifiers: Laterality: left Lung location: lower lobe of lung Qualified Code(s): J18.1 - Lobar pneumonia, unspecified organism Is this a current diagnosis for this admission?: Yes Plan: Improved. Unspecified organism. X-ray reveals a left lower lobe and possible right lower lobe pneumonia. WBCs were elevated to 16.2; leukocytosis now resolved. She has remained afebrile throughout admission. Blood cultures growing Gm (+) cocci in one set. Sputum cultures not yet obtained; no longer producing sputum. She was empirically placed on IV Rocephin and azithromycin; day #3. Remaining treatment plan as above. (3) COPD with exacerbation Is this a current diagnosis for this admission?: Yes Plan: Improved; lung sounds are clear today, reduced oxygen requirement. The patient's home dose Symbicort is held while receiving scheduled duo nebs. Supplemental oxygen and BiPAP as needed to maintain oxygen saturations. Scheduled duo nebs with as needed albuterol; weaning frequency of scheduled nebs. IV Solu-Medrol; further weaning today, plan to transition to p.o prednisone tomorrow. Mucinex twice daily. Incentive spirometry and flutter valve to bedside. (4) Chronic diastolic CHF (congestive heart failure) Is this a current diagnosis for this admission?: Yes Plan: Stable and without exacerbation at this time. ProBNP was mildly elevated at 1020 on admission; decreased to 871. Troponin indeterminate but stable; 0.049--> 0.080--> 0.050--> 0.054 Chest x-ray revealed borderline cardiomegaly without pulmonary edema. EKG demonstrated sinus tachycardia without acute changes. Her home medications are continued: Isosorbide 30 mg daily and metoprolol XL 25 mg daily with daily aspirin, statin, and fenofibrate therapy. Start furosemide 20 mg twice daily. She is placed on a cardiac diet with daily weights. (5) Diabetes mellitus type 2 in obese Is this a current diagnosis for this admission?: Yes Plan: Elevated blood glucose; likely secondary to steroid therapy. Patient is placed on a consistent carb diet. Continue Lantus 32 units daily (slight decrease from her home dose of Toujeo 44 units). Accu-Cheks before meals and at bedtime with Humalog for sliding scale coverage. Registered dietitian is consulted. (6) Hyperlipidemia Qualifiers: Hyperlipidemia type: unspecified Qualified Code(s): E78.5 - Hyperlipidemia , unspecified Is this a current diagnosis for this admission?: Yes Plan: Continue statin therapy. (7) Hypertension Qualifiers: Hypertension type: essential hypertension Qualified Code(s): I10 - Essential (primary) hypertension Is this a current diagnosis for this admission?: Yes Plan: Acceptable blood pressures for age on home medication regiment. (8) Hypothyroid Qualifiers: Hypothyroidism type: unspecified Qualified Code(s): E03.9 - Hypothyroidism , unspecified Is this a current diagnosis for this admission?: Yes Plan: Home dose levothyroxine is continued. (9) Obstructive sleep apnea Is this a current diagnosis for this admission?: Yes Plan: Supplemental oxygen and BiPAP nightly. Pt reports difficulty with insurance in obtaining CPAP and home oxygen; discharge planning is consulted. Will obtain overnight pulse oximetry study to evaluate for overnight oxygen needs. Recommend follow up with established manager book, Dr. Santiago, after discharge. (10) Anemia Qualifiers: Anemia type: unspecified type Qualified Code(s): D64.9 - Anemia, unspecified Is this a current diagnosis for this admission?: Yes Plan: Chronic anemia; likely related to chronic diseases and poor nutrition (obesity, uncontrolled insulin dependent diabetes mellitus, CHF) Admitted with Hgb 10.2; has trended down to 8.3 No evidence of active bleeding. Occult stool is negative. Will anemia panel with a.m labs. Monitor daily CBC. - Time Time Spent with patient: 15-24 minutes Medications reviewed and adjusted accordingly: Yes Anticipated discharge: Home Within: within 24 hours
[2018-06-14] MEDS: CEFTRIAXONE SODIUM 2,000 MG in DEXTROSE 5%-WATER 100 ML IV SCH (21:12)
[2018-06-14] MEDS: TEMAZEPAM 7.5 MG CAPSULE PO PRN (21:13)
[2018-06-15 05:04] LABS: ABSOLUTE RETICS # 0.084 10^6/uL (0.028-0.122); HEMATOCRIT 28.3 % (36.0-47.0); HEMOGLOBIN 9.1 g/dL (12.0-15.5); MEAN CORPUSCULAR HEMOGLOBIN 25.2 pg (27.0-33.4); MEAN CORPUSCULAR VOLUME 79 fl (80-97); PLATELET COUNT 184 10^3/uL (150-450); RED CELL DISTRIBUTION WIDTH 17.5 % (11.5-14.0); RETICULOCYTE COUNT (AUTO) 2.33 % (0.66-2.85); WHITE BLOOD COUNT 9.3 10^3/uL (4.0-10.5)
[2018-06-15 05:33] LABS: ANION GAP 11 (5-19); BLOOD UREA NITROGEN 33 mg/dL (7-20); CARBON DIOXIDE 36 mmol/L (22-30); CHLORIDE 95 mmol/L (98-107); GLUCOSE 215 mg/dL (75-110); IRON(TIBC) 11.7 ug/dL (37-170); SODIUM 142.3 mmol/L (137-145)
[2018-06-15] MEDS: AZITHROMYCIN 500 MG in DEXTROSE 5%-WATER 250 ML IV SCH (06:21)
[2018-06-15] MEDS: LEVOTHYROXINE SODIUM 0.15 MG TABLET PO SCH (06:22)
[2018-06-15] MEDS: IPRATROPIUM/ALBUTEROL 0.5-2.5 MG/3 ML AMPUL NEB SCH (08:20)
[2018-06-15] MEDS: FUROSEMIDE 20 MG TABLET PO SCH ×2 (11:15→18:10)
[2018-06-15] MEDS: ISOSORBIDE MONONITRATE 30 MG TAB.ER.24H PO SCH (11:16)
[2018-06-15] MEDS: FERROUS SULFATE 325 MG TABLET PO SCH ×2 (11:16→18:09)
[2018-06-15] MEDS: FENOFIBRATE NANOCRYSTALLIZED 145 MG TABLET PO SCH (11:17)
[2018-06-15] MEDS: ASPIRIN 81 MG TABLET, ENT COATED PO SCH (11:17)
[2018-06-15] MEDS: GUAIFENESIN 600 MG TABLET.SA PO SCH (11:17)
[2018-06-15] MEDS: METOPROLOL SUCCINATE 25 MG TAB.SR.24H PO SCH (11:17)
[2018-06-15] MEDS: PREDNISONE 20 MG TABLET PO SCH ×2 (11:17→18:09)
[2018-06-15] MEDS: INSULIN GLARGINE,HUM.REC.ANLOG 300 UNIT/3 ML INSULN.PEN SUBCUT SCH (11:18)
[2018-06-15] MEDS: ENOXAPARIN SODIUM INJ 40 MG/0.4 ML DISP.SYRIN SUBCUT SCH (11:18)
[2018-06-15] MEDS: INSULIN LISPRO 100 UNIT/ML 3 ML VIAL SUBCUT PRN ×2 (13:14→18:09)
[2018-06-15] MEDS: TRIAMCINOLONE ACETONIDE 0.1% CREAM 15 GM TOP SCH ×2 (13:17→18:10)
[2018-06-15 17:56] VITALS: BP 130/78
[2018-06-15] MEDS ORDERED: ATORVASTATIN CALCIUM 20 MG TABLET PO SCH (22:00)
--- NOTE | 2018-06-18 17:09 | PDOC DISCHARGE SUMMARY ---
General - Admit/Disc Date/PCP Admission Date/Primary Care Provider: 06/12/18 01:15 ANSON HARTMAN PA-C Discharge Date: 06/15/18 - Discharge Diagnosis (1) Acute on chronic respiratory failure Is this a current diagnosis for this admission?: Yes Summary: Acute exacerbation has resolved. Patient was discharged on her baseline oxygen requirement of 2lpm. (2) Community acquired pneumonia Is this a current diagnosis for this admission?: Yes Summary: Resolved. (3) COPD with exacerbation Is this a current diagnosis for this admission?: Yes Summary: Resolved. (4) Chronic diastolic CHF (congestive heart failure) Is this a current diagnosis for this admission?: Yes Summary: Stable; without exacerbation. (5) Diabetes mellitus type 2 in obese Is this a current diagnosis for this admission?: Yes (6) Hyperlipidemia Is this a current diagnosis for this admission?: Yes (7) Hypertension Is this a current diagnosis for this admission?: Yes (8) Hypothyroid Is this a current diagnosis for this admission?: Yes (9) Obstructive sleep apnea Is this a current diagnosis for this admission?: Yes (10) Anemia Is this a current diagnosis for this admission?: Yes - Additional Information Discharge Diet: Cardiac, Diabetic Discharge Activity: Activity As Tolerated, Balance Activity w/Rest Prescriptions: Azithromycin [Zithromax] 250 mg PO DAILY #3 tablet Ferrous Sulfate [Feosol 325 mg Tablet] 325 mg PO BIDPCBS #60 tablet Guaifenesin [Mucinex Sr 600 mg Tablet.sa] 600 mg PO Q12 #28 tablet.sa Prednisone [Deltasone 20 mg Tablet] 20 mg PO ASDIR PRN #18 tablet PRN Reason: Tiotropium Nancy [Spiriva Handihaler 5 Cap/Kit (18 Mcg/Cap)] 1 cap IH DAILY # 5 capsule Home Medications: Metoprolol Succinate [Toprol Xl 25 mg Tab.sr] 25 mg PO DAILY #30 tab.sr.24h Aspirin [Ecotrin 81 mg EC Tablet] 81 mg PO DAILY #30 tabec 08/12/16 Metformin HCl [Glucophage] 1,000 mg PO BID 08/16/16 Ipratropium/Albuterol Sulfate [Duoneb 3 ml Ampul] 3 ml NEB RTQ4HP PRN vial.neb 08/22/16 Fenofibrate Nanocrystallized [Fenofibrate] 145 mg PO DAILY #30 tablet 08/25/16 Atorvastatin Calcium 20 mg PO QHS 12/13/17 Insulin Glargine,Hum.rec.anlog [Toujeo Solostar] 44 units SUBCUT QHS 12/13/17 Albuterol Sulfate [Ventolin HFA MDI 18 GM] 2 puff IH Q4HP PRN 06/12/18 Budesonide/Formoterol Fumarate [Symbicort HFA 160-4.5 mcg Inhaler 6 gm] 2 puff IH Q12HP PRN 06/12/18 Insulin Aspart [Novolog Flexpen] 5 unit SUBCUT MEALS 06/12/18 Isosorbide Mononitrate [Imdur 30 mg Tablet.er] 30 mg PO DAILY 06/12/18 Levothyroxine Sodium [Synthroid 0.15 mg Tablet] 0.15 mg PO Q6AM 06/12/18 Acetaminophen [Tylenol 325 mg Tablet] 650 mg PO Q4HP PRN tablet 06/15/18 Azithromycin [Zithromax] 250 mg PO DAILY #3 tablet 06/15/18 Ferrous Sulfate [Feosol 325 mg Tablet] 325 mg PO BIDPCBS #60 tablet 06/15/18 Guaifenesin [Mucinex Sr 600 mg Tablet.sa] 600 mg PO Q12 #28 tablet.sa 06/15/18 Isosorbide Mononitrate [Imdur 30 mg Tablet.er] 30 mg PO DAILY tab.er.24h Prednisone [Deltasone 20 mg Tablet] 20 mg PO ASDIR PRN #18 tablet 06/15/18 Tiotropium Nancy [Spiriva Handihaler 5 Cap/Kit (18 Mcg/Cap)] 1 cap IH DAILY # 5 capsule 06/15/18 Triamcinolone Acetonide [Aristocort 0.1% Cream] 1 applic TOP BID tube 06/15/18 History of Present Illness History of Present Illness: Per H&P by Dr. Aguiar: NIELS ALSTON is a 77 year old female with chronic respiratory failure secondary to COPD on 2 L oxygen at home. Patient comes to the ED after being with progressive shortness of breath during the last 2 weeks , associated with wheezing, chest congestion, minimal cough and minimal whitish sputum, denies fever, chills, nausea or vomiting. Apparently patient ran out of oxygen today, EMS was called and she was found hypoxic at 70%, initially placed on CPAP and given nebulizer treatments, she arrived to the ED somnolent and was initiated on BiPAP. Initially felt that the patient can have CHF exacerbation and given 40 mg of IV Lasix. Chest x-ray shows left lower lobe pneumonia with possible right lower lobe pneumonia. Patient tells me that when he is not on prednisone her COPD symptoms exacerbates , she went to see her primary care physician the day of admission and she was prescribed prednisone, she took 20 mg but did not help. VBG 7.16/80, 7.24/73, 7.34/60.9, apparently her CO2 baseline is around 50. Patient is currently alert and oriented x4. Hospital Course Hospital Course: Acute respiratory failure is resolved; the patient was discharged on her baseline oxygen requirement. She experienced acute worsening of her hypoxia secondary to a community-acquired pneumonia and COPD exacerbation worsened by complicated by running out of her portable oxygen tank. She was admitted to the medical floor on continuous cardiac telemetry and supported with supplemental oxygen, BiPAP, scheduled and as needed nebulizer treatments, incentive spirometry and flutter valve, Mucinex, glucocorticoids, and empiric antibiotics for community-acquired pneumonia. Her leukocytosis is resolved and she has remained afebrile throughout the admission. Her supplemental oxygen needs has gradually decreased to her baseline requirement. Blood culture revealed staph epidermidis (determined to be a contaminant) and 1 bottle and all others were negative for growth. A sputum culture was not obtained as the patient did not continue to produce sputum upon admission. She received 3 days of IV Rocephin and azithromycin; Rocephin was discontinued and the patient was provided a prescription for azithromycin to complete a 5-day course of therapy. Her CHF was monitored closely. ProBNP was mildly elevated at 1020 on admission ; decreased to 871. Troponin indeterminate but stable; 0.049--> 0.080--> 0.050- -> 0.054. Chest x-ray revealed borderline cardiomegaly without pulmonary edema. EKG demonstrated sinus tachycardia without acute changes. Her home medication regiment was continued and the patient remained compensated. An overnight sleep study was obtained the night prior to her discharge; she was noted to have several desaturation events into the low to mid 80s. She was encouraged to continue with her home oxygen at night and to follow-up with her established pilot plant technician to discuss formalized sleep study to evaluate for CPAP needs. At time of discharge, the patient was in stable condition and maintaining oxygen saturations on her baseline oxygen requirement while ambulatory. She was encouraged to follow-up with her primary care provider within 1 week. She is encouraged to notify her pilot plant technician of her recent admission and to follow-up as directed. She is advised to return to the emergency department as needed for any concerning symptoms. Physical Exam Vital Signs: Temp Pulse Resp BP Pulse Ox 97.5 F 78 18 130/78 H 98 06/15/18 17:55 06/15/18 17:55 06/15/18 17:55 06/15/18 17:55 06/15/18 17:55 Pulse Oximeter Nocturnal Start: 06/14/18 17: 14 Freq: RTQ4 Status: Complete Document 06/15/18 04:06 CMI (Rec: 06/15/18 04:41 CMI [id number]) Nocturnal Pulse Oximetry Equipment Usage Equipment in Use Oxygen Delivery Method (includes room Room Air air) O2 Sat by Pulse Oximetry (92-100) 94 Continuous Pulse Oximeter Set Up No Continuous SpO2 Discontinued No Continuous SpO2 Machine # 2 General appearance: PRESENT: no acute distress, cooperative, obese, well- developed, well-nourished Head exam: PRESENT: atraumatic, normocephalic Eye exam: PRESENT: conjunctiva pink, EOMI, PERRLA. ABSENT: scleral icterus Ear exam: PRESENT: normal external ear exam Mouth exam: PRESENT: moist, tongue midline Neck exam: ABSENT: carotid bruit, JVD, lymphadenopathy, thyromegaly Respiratory exam: PRESENT: clear to auscultation jessenia, decreased breath sounds - Bibasilar, prolonged expiratory phas, symmetrical, unlabored. ABSENT: rales, rhonchi, wheezes Cardiovascular exam: PRESENT: RRR. ABSENT: diastolic murmur, rubs, systolic murmur Pulses: PRESENT: normal dorsalis pedis pul Vascular exam: PRESENT: normal capillary refill GI/Abdominal exam: PRESENT: normal bowel sounds, soft. ABSENT: distended, guarding, mass, organolmegaly, rebound, tenderness Rectal exam: PRESENT: deferred Extremities exam: PRESENT: full ROM. ABSENT: calf tenderness, clubbing, pedal edema Neurological exam: PRESENT: alert, awake, oriented to person, oriented to place , oriented to time, oriented to situation, CN II-XII grossly intact. ABSENT: motor sensory deficit Psychiatric exam: PRESENT: appropriate affect, normal mood. ABSENT: homicidal ideation, suicidal ideation Skin exam: PRESENT: dry, intact, warm. ABSENT: cyanosis, rash Results Laboratory Results: 06/15/18 03:48 06/15/18 03:48 06/13/18 06/13/18 06/13/18 05:31 12:37 17:56 Troponin I 0.080 0.050 0.054 NT-Pro-B Natriuret Pep 871 H Impressions: Chest X-Ray 06/11/18 19:38 IMPRESSION: Borderline cardiomegaly without pulmonary edema. Left lower lobe pneumonia. Possible right lower lobe pneumonia. Qualifiers - * PATIENT BEING DISCHARGED WITH ANY OF THE FOLLOWING DIAGNOSIS: Heart Failure HF Pt being discharged on ACEI for LVEF less than 40%?: No Reason(s) for not prescribing ACEI:: Not indicated - LVEF greater than 40% HF Pt being discharged on ARBS for LVEF less than 40%?: No Reason(s) for not prescribing ARBS:: Not indicated - LVEF greater than 40% HF Pt with Afib discharged with Warfarin?: No Reason(s) for not prescribing Warfarin:: Not indicated - Does not have A. fib HF Pt discharged on evidence-based Beta Eliu:: Yes Plan Discharge Plan: The patient is discharged home with self-care. She is to follow-up with her primary care provider within 1 week. She is to follow-up with Dr. Santiago as previously scheduled; she is recommended to call the office and notify the clinic of her admission.
== END 2018-06-15 18:35 | disposition home or self-care (01) | DRG 189 ==
LOC: ER 19:27 → EH 06-12 01:15 → 5 06-12 11:06
PROVIDERS: ADMIT Internal Medicine; ATTEND Internal Medicine
DX: J96.21 Acute and chronic respiratory failure with hypoxia (principal); J18.9 Pneumonia, unspecified organism; I50.32 Chronic diastolic (congestive) heart failure; J43.9 Emphysema, unspecified; J96.22 Acute and chronic respiratory failure with hypercapnia; I11.0 Hypertensive heart disease with heart failure; D64.9 Anemia, unspecified; E78.5 Hyperlipidemia, unspecified; E11.8 Type 2 diabetes mellitus with unspecified complications; E03.9 Hypothyroidism, unspecified; G47.33 Obstructive sleep apnea (adult) (pediatric); Z87.891 Personal history of nicotine dependence; Z79.84 Long term (current) use of oral hypoglycemic drugs; Z79.82 Long term (current) use of aspirin; Z79.4 Long term (current) use of insulin; Z79.51 Long term (current) use of inhaled steroids; Z79.52 Long term (current) use of systemic steroids; Z79.899 Other long term (current) drug therapy
CPT/HCPCS: 36415; 36600; 71045; 80048; 80053; 82272; 82607; 82728; 82746; 82803; 82962; 83540; 83550; 83690; 83880; 84484; 85025; 85027; 85045; 87040; 87077; 87186; 93005; 93010; 94640; 94660; 94667; 94762; 94799; 96374; 96375; 99291; J0456; J0696; J1650; J1815; J1940; J2920; J2930; J3490; J7060; J7512; J7620

== ENCOUNTER 2018-08-15 12:19 | Emergency (ER) | payer MEDICARE, MEDICAID ==
--- NOTE | 2018-08-15 12:46 | ER Document Report ---
ED General - General Mode of Arrival: Medic Information source: Patient TRAVEL OUTSIDE OF THE [place] IN LAST 30 DAYS: No <GATITO LEON - Last Filed: 08/15/18 13:15> <YOUSIF FERNANDEZ - Last Filed: 08/15/18 14:26> - General Chief Complaint: Fall Stated Complaint: RIGHT ARM PAIN Time Seen by Provider: 08/15/18 12:35 Notes: Patient is a 77 year old female with HTN, CHF, COPD, type 2 diabetes presents to the emergency department complaining of right arm pain secondary a mechanical trip and fall onset last night. Patient states that she fell off of a porch and landed on the ground on her right shoulder. She states her arms were not outstretched. She states she did have immediate pain in right arm after the incident and further states moving it exacerbates the pain. Patient states she does not feel any pain when keeping her arm still. She denies any pain in her ribs, elbow, forearm, wrist, or fingers. Patient's primary care is Patricia Vora. Patient's wood grinder is Dr. Santiago. (GATITO LEON) This 77-year-old female patient reports that her shoulder does not hurt at this time if it is not moved or palpated. She did receive fentanyl IV 50 mcg by EMS prior to arrival. She is taking prednisone 10 mg daily for her COPD. (YOUSIF FERNANDEZ) - Related Data Allergies/Adverse Reactions: No Known Drug Allergies Allergy (Verified 12/13/17 16:06) Past Medical History - General Information source: Patient - Social History Smoking Status: Former Smoker Cigarette use (# per day): No Chew tobacco use (# tins/day): No Smoking Education Provided: No Frequency of alcohol use: None Family History: Malignancy - Mother of a complication, father of COPD, both siblings of cancer, Other - Past Medical History Cardiac Medical History: Reports: Hx Congestive Heart Failure, Hx Hypercholesterolemia, Hx Hypertension Pulmonary Medical History: Reports: Hx COPD, Hx Sleep Apnea Endocrine Medical History: Reports: Hx Diabetes Mellitus Type 2, Hx Hypothyroidism Musculoskeletal Medical History: Reports Hx Arthritis Psychiatric Medical History: Reports: Hx Depression - Hx of Past Surgical History: Reports: Hx Hysterectomy, Hx Vascular Surgery - Aortobifemoral bypass - Immunizations Hx Diphtheria, Pertussis, Tetanus Vaccination: Yes Hx Pneumococcal Vaccination: 09/08/13 <GATITO LEON - Last Filed: 08/15/18 13:15> Review of Systems - Review of Systems Constitutional: No symptoms reported EENT: No symptoms reported Cardiovascular: No symptoms reported Respiratory: No symptoms reported Gastrointestinal: No symptoms reported Genitourinary: No symptoms reported Female Genitourinary: No symptoms reported Musculoskeletal: See HPI Skin: No symptoms reported Hematologic/Lymphatic: No symptoms reported Neurological/Psychological: No symptoms reported -: Yes All other systems reviewed and negative <GATITO LEON - Last Filed: 08/15/18 13:15> Physical Exam <GATITO LEON - Last Filed: 08/15/18 13:15> - Vital signs Vitals: Temp Pulse Resp BP Pulse Ox 98.3 F 95 16 98/65 L 96 08/15/18 12:27 08/15/18 12:27 08/15/18 12:27 08/15/18 12:27 08/15/18 12:27 - Notes Notes: GENERAL: Alert, interacts well. No acute distress. HEAD: Normocephalic, atraumatic. EYES: Pupils equal, round, and reactive to light. Extraocular movements intact. ENT: Oral mucosa moist, tongue midline. NECK: Full range of motion. Supple. Trachea midline. LUNGS: Coarse breath sounds. No respiratory distress. HEART: Regular rate and rhythm. No murmurs, gallops, or rubs. ABDOMEN: Soft, non-tender. Non-distended. Bowel sounds present in all 4 quadrants. EXTREMITIES: Moves all 4 extremities spontaneously. Tender to palpation to the right shoulder. Anterior upper arm contains an ecchymotic area. Right elbow, forearm, and wrist not tender to palpation. 2+ pitting edema to the BLE. NEUROLOGICAL: Alert and oriented x3. Normal speech. PSYCH: Normal affect, normal mood. SKIN: Warm, dry, normal turgor. No rashes or lesions noted. (GATITO LEON) Course - Diagnostic Test Radiology reviewed: Image reviewed, Reports reviewed - Right humeral greater tuberosity shows slightly displaced fracture <YOUSIF FERNANDEZ - Last Filed: 08/15/18 14:26> - Vital Signs Vital signs: Temp Pulse Resp BP Pulse Ox 98.3 F 95 16 98/65 L 96 08/15/18 12:27 08/15/18 12:27 08/15/18 12:27 08/15/18 12:27 08/15/18 12:27 Discharge <GATITO LEON - Last Filed: 08/15/18 13:15> <YOUSIF FERNANDEZ - Last Filed: 08/15/18 14:26> - Discharge Clinical Impression: Fracture of greater tuberosity of right humerus Qualifiers: Encounter type: initial encounter Fracture type: closed Fracture alignment: displaced Qualified Code(s): S42.251A - Displaced fracture of greater tuberosity of right humerus, initial encounter for closed fracture Condition: Stable Disposition: HOME, SELF-CARE Additional Instructions: Fracture Proximal Humerus There is a fracture at the upper end of the humerus, near the shoulder joint. Your physician has assessed the fracture's severity and has determined that it will heal well without surgery or "setting." The typical shoulder fracture doesn't need a cast. It's best treated by binding the arm down with a special sling. Ice packs are used to reduce pain and swelling. After early healing has occurred, [id number] exercises are prescribed for the shoulder. Complete healing may take three to six weeks, depending on the age of the patient and the severity of the fracture. Call the doctor or return at once if the arm becomes numb, or if pain or swelling become severe. Take Tylenol for pain. Use ice packs to the painful area for the next few days. Use the sling/shoulder immobilizer to limit motion at the shoulder. Take the prescribed pain medication if needed to help sleep or if the pain gets severe. Call [facility] for surgery today or tomorrow to schedule an appointment in the next few days. RETURN TO THE EMERGENCY ROOM IF ANY NEW OR WORSENING SYMPTOMS. Prescriptions: Hydrocodone/Acetaminophen [[place] 5-325 mg Tablet] 1 tab PO Q4 PRN #15 tablet PRN Reason: Referrals: [facility] ([facility]) [Provider Group] - Follow up in 3-5 days Scribe Attestation: 08/15/18 13:01 I personally performed the services described in the documentation, reviewed and edited the documentation which was dictated to the scribe in my presence, and it accurately records my words and actions. (YOUSIF FERNANDEZ) Scribe Documentation - Scribe Written by Gaurav:: Gaurav Cardona, 08/15/2018 12:59 acting as scribe for :: Magda <GATITO LEON - Last Filed: 08/15/18 13:15>
--- NOTE | 2018-08-15 13:37 | RADIOLOGY REPORT (SQ) ---
EXAM DESCRIPTION: SHOULDER RIGHT 1 VIEW COMPLETED DATE/TIME: 08/15/2018 1:22 pm REASON FOR STUDY: Fall, right shoulder pain swelling and ecchymosis COMPARISON: None. NUMBER OF VIEWS: Two views TECHNIQUE: Internal rotation, and Y view images acquired of the right shoulder. LIMITATIONS: None. FINDINGS: MINERALIZATION: Normal. BONES: There is a fracture of the greater tuberosity. JOINTS: No dislocation. VISUALIZED LUNGS AND RIBS: No pneumothorax. No rib fracture. SOFT TISSUES: No radiopaque foreign body. OTHER: No other significant finding. IMPRESSION: Fracture of the greater tuberosity. TECHNICAL DOCUMENTATION: JOB ID: [id number] [employer]- All Rights Reserved Reading location - IP/workstation name: [email or web address]
--- NOTE | 2018-08-15 13:38 | RADIOLOGY REPORT (SQ) ---
EXAM DESCRIPTION: HUMERUS RIGHT COMPLETED DATE/TIME: 08/15/2018 1:22 pm REASON FOR STUDY: Fall, right shoulder pain swelling and ecchymosis COMPARISON: None. NUMBER OF VIEWS: Two views. TECHNIQUE: Two radiographic images were acquired of the right humerus to include elbow and shoulder in at least one projection. LIMITATIONS: None. FINDINGS: MINERALIZATION: Normal. BONES: Fracture of the greater tuberosity. No other fracture. SOFT TISSUES: No obvious swelling or foreign body. OTHER: No other significant finding. IMPRESSION: Fracture as described. Consider CT to delineate the fragments. TECHNICAL DOCUMENTATION: JOB ID: [id number] [employer]- All Rights Reserved Reading location - IP/workstation name: [email or web address]
[2018-08-15] MEDS ORDERED: FENTANYL CITRATE INJ/PF 100 MCG/2 ML AMPUL IV ONE (14:26)
[2018-08-15] MEDS ORDERED: HYDROCODONE/ACETAMINOPHEN 5-325 MG TABLET PO ONE (14:38)
[2018-08-15 14:48] VITALS: BP 109/60
== END 2018-08-15 14:53 | disposition home or self-care (01) ==
LOC: ER 12:19
DX: S42.251A Displaced fracture of greater tuberosity of right humerus, initial encounter for closed fracture (principal); M79.601 Pain in right arm; W01.0XXA Fall on same level from slipping, tripping and stumbling without subsequent striking against object, initial encounter; I11.0 Hypertensive heart disease with heart failure; I50.9 Heart failure, unspecified; J44.9 Chronic obstructive pulmonary disease, unspecified; E11.9 Type 2 diabetes mellitus without complications; Z90.710 Acquired absence of both cervix and uterus
CPT/HCPCS: 99283; 73060; 73020; L3650; A9270

== ENCOUNTER 2018-08-23 10:50 | Observation (INO) | payer MEDICARE, MEDICAID ==
[~2018-08-23 10:50] MED LIST: CEFAZOLIN SODIUM 2 GM in DEXTROSE 5%-WATER 100 ML IV PRN
[2018-08-23 12:13] LABS: APPEARANCE,URINE CLEAR; BILIRUBIN,URINE NEGATIVE (NEGATIVE); COLOR,URINE YELLOW; GLUCOSE, URINE NEGATIVE (NEGATIVE); KETONES,URINE NEGATIVE (NEGATIVE); LEUKOCYTE ESTERASE,URINE TRACE (NEGATIVE); NITRITE,URINE NEGATIVE (NEGATIVE); PROTEIN,URINE NEGATIVE (NEGATIVE); URINE SPECIFIC GRAVITY 1.024; UROBILINOGEN,URINE NEGATIVE mg/dL (<2.0)
[2018-08-23 12:22] LABS: HEMATOCRIT 32.1 % (36.0-47.0); HEMOGLOBIN 10.7 g/dL (12.0-15.5); MEAN CORPUSCULAR HEMOGLOBIN 28.2 pg (27.0-33.4); MEAN CORPUSCULAR HGB CONC 33.3 g/dL (32.0-36.0); MEAN CORPUSCULAR VOLUME 85 fl (80-97); PLATELET COUNT 210 10^3/uL (150-450); RED BLOOD COUNT 3.79 10^6/uL (3.72-5.28); RED CELL DISTRIBUTION WIDTH 16.8 % (11.5-14.0); WHITE BLOOD COUNT 7.8 10^3/uL (4.0-10.5)
[2018-08-23 12:46] LABS: ANION GAP 8 (5-19); BLOOD UREA NITROGEN 13 mg/dL (7-20); CALCIUM 9.6 mg/dL (8.4-10.2); CARBON DIOXIDE 30 mmol/L (22-30); CHLORIDE 102 mmol/L (98-107); GLUCOSE 164 mg/dL (75-110); POTASSIUM 3.4 mmol/L (3.6-5.0); SODIUM 139.8 mmol/L (137-145)
--- NOTE | 2018-08-23 12:50 | RADIOLOGY REPORT (SQ) ---
EXAM DESCRIPTION: CHEST SINGLE VIEW COMPLETED DATE/TIME: 08/23/2018 12:13 pm REASON FOR STUDY: surgery COMPARISON: 06/11/2018 EXAM PARAMETERS: NUMBER OF VIEWS: One view. TECHNIQUE: Single frontal radiographic view of the chest acquired. RADIATION DOSE: NA LIMITATIONS: None. FINDINGS: LUNGS AND PLEURA: No opacities, masses or pneumothorax. No pleural effusion. Improved aer ation from prior exam. MEDIASTINUM AND HILAR STRUCTURES: For discrete mass. HEART AND VASCULAR STRUCTURES: Enlarged heart, stable. Atherosclerotic aorta. BONES: No acute findings. HARDWARE: None in the chest. OTHER: No other significant finding. IMPRESSION: Stable enlarged cardiac silhouette without evidence of acute intrathoracic process. TECHNICAL DOCUMENTATION: JOB ID: [id number] [employer] All Rights Reserved Reading location - IP/workstation name: [email or web address]
--- NOTE | 2018-08-23 13:33 | EKG REPORT ---
SEVERITY:- BORDERLINE ECG - SINUS RHYTHM BORDERLINE T ABNORMALITIES, ANT-LAT LEADS : Confirmed by: Casandra Rosenberg MD 23-Aug-2018 13:33:20
[2018-08-23] MEDS ORDERED: MAGNESIUM HYDROXIDE SUSP 30 ML UDCUP PO PRN (15:03)
[2018-08-23] MEDS ORDERED: MAG HYDROX/AL HYDROX/SIMETH SUSP 30 ML UDCUP PO PRN (15:09)
[2018-08-23] MEDS ORDERED: ONDANSETRON HCL INJ/PF 4 MG/2 ML SDV IV PRN (15:09)
[2018-08-23] MEDS ORDERED: DEXTROSE 40% GEL 15 GM TUBE PO PRN ×2 (15:31)
[2018-08-23] MEDS ORDERED: INSULIN LISPRO 100 UNIT/ML 3 ML VIAL SUBCUT PRN (15:31)
[2018-08-23] MEDS ORDERED: DEXTROSE 50%-WATER 25 GM/50 ML DISP.SYRIN IV PRN ×2 (15:31)
[2018-08-23] MEDS ORDERED: GLUCAGON,HUMAN RECOMB 1 MG INJ IM PRN (15:31)
--- NOTE | 2018-08-23 16:01 | PDOC H&P ---
History of Present Illness Admission Date/PCP: 08/23/18 14:59 ANSON HARTMAN PA-C Patient complains of: Rt shoulder pain History of Present Illness: NIELS ALSTON is a 77 year old female with a past medical history of chronic respiratory failure secondary to COPD who is home O2 dependent, insulin- dependent diabetes mellitus, hypothyroidism, chronic diastolic CHF, HÉCTOR, anemia, and obesity who was scheduled to have orthopedic repair of right humerus fracture by Dr. Hernandez today. She was noted to have hypotension preoperatively; hospitalist service was consulted for assistance in arranging for pre- operative/cardiac clearance. The patient was seen at bedside while still in the [facility]. She reports that she has been told that she chronically has hypotension to her left arm; she is unaware of any previous workup. She denies dizziness, headaches, palpitations, chest pain, or shortness of breath. She states that other than her shoulder discomfort she feels that she is in her usual state of health. She is frustrated by the delay in her operative repair, but does understand the need for cardiac clearance. Evaluation by the anesthesia team revealed anemia with a hemoglobin of 10.7 (at baseline), unremarkable chemistry, hemoglobin A1c of 7.8%, benign urinalysis, EKG demonstrating normal sinus rhythm with nonspecific T wave changes to the lateral leads, and chest x-ray demonstrating stable enlarged cardiac silhouette without acute processes. Past Medical History Cardiac Medical History: Reports: Congestive Heart Failure, Coronary Artery Disease, Hyperlipidema, Hypertension Denies: Myocardial Infarction Pulmonary Medical History: Reports: Asthma, Chronic Obstructive Pulmonary Disease (COPD) - home O2 dependant; 2lpm, Pneumonia, Sleep Apnea Denies: Tuberculosis EENT Medical History: Reports: Cataracts Neurological Medical History: Denies: Ischemic CVA, Seizures Endocrine Medical History: Reports: Diabetes Mellitus Type 2, Hypothyroidism Renal/ Medical History: Reports: None Malignancy Medical History: Reports: None GI Medical History: Reports: None Musculoskeltal Medical History: Reports: Arthritis Skin Medical History: Reports: None Psychiatric Medical History: Reports: Depression Hematology: Reports: Anemia Infectious Medical History: Reports: None Past Surgical History Past Surgical History: Reports: Hysterectomy, Orthopedic Surgery - hips, Vascular Surgery - Aortobifemoral bypass Social History Information Source: Patient Lives with: Alone Smoking Status: Former Smoker Number of Years Smokin Frequency of Alcohol Use: None Hx Recreational Drug Use: No Drugs: None Hx Prescription Drug Abuse: No - Advance Directive Resuscitation Status: Do Not Resuscitate Surrogate healthcare decision maker:: The patient's daughter, Debra Boss Family History Family History: COPD, Malignancy, Other Parental Family History Reviewed: Yes - Mother of a complication, father of COPD Children Family History Reviewed: Yes Sibling(s) Family History Reviewed.: Yes Medication/Allergy Home Medications: Albuterol Sulfate [Proventil 0.5% Neb 2.5 mg/0.5 ml Vial.neb] 2.5 mg NEB QID 08/23/18 Fenofibrate Nanocrystallized [Tricor 145 mg Tablet] 145 mg PO QHS 08/23/18 Ferrous Sulfate [Feosol] 325 mg PO DAILY 08/23/18 Insulin Aspart [Novolog Flexpen] 5 unit SQ TID 08/23/18 Insulin Glargine,Hum.rec.anlog [Toujeo Max Solostar] 44 unit SQ QHS 08/23/18 Isosorbide Dinitrate 30 mg PO DAILY 08/23/18 Levothyroxine Sodium 450 mcg PO DAILY 08/23/18 Metformin HCl 1,000 mg PO BID 08/23/18 Metoprolol Succinate [Toprol Xl] 25 mg PO DAILY 08/23/18 Prednisone [Deltasone 10 mg Tablet] 10 mg PO ASDIR PRN 08/23/18 Allergies/Adverse Reactions: No Known Drug Allergies Allergy (Verified 12/13/17 16:06) Review of Systems Constitutional: ABSENT: chills, fever(s), headache(s), weight gain, weight loss Eyes: ABSENT: visual disturbances Ears: ABSENT: hearing changes Cardiovascular: PRESENT: edema - +1 pitting BLE. ABSENT: chest pain, dyspnea on exertion, orthropnea, palpitations Respiratory: PRESENT: cough. ABSENT: hemoptysis Gastrointestinal: ABSENT: abdominal pain, constipation, diarrhea, hematemesis, hematochezia, nausea, vomiting Genitourinary: ABSENT: dysuria, hematuria Musculoskeletal: PRESENT: other - RUE/shoulder pain. ABSENT: joint swelling Integumentary: ABSENT: rash, wounds Neurological: ABSENT: abnormal gait, abnormal speech, confusion, dizziness, focal weakness, syncope Psychiatric: ABSENT: anxiety, depression, homidical ideation, suicidal ideation Endocrine: ABSENT: cold intolerance, heat intolerance, polydipsia, polyuria Hematologic/Lymphatic: ABSENT: easy bleeding, easy bruising Physical Exam Vital Signs: Temp Pulse Resp BP Pulse Ox 98.2 F 87 18 87/58 L 91 L 08/23/18 12:40 08/23/18 12:40 08/23/18 12:40 08/23/18 13:15 08/23/18 12:40 Intake & Output 08/22/18 08/23/18 08/24/18 06:59 06:59 06:59 Intake Total 0 Balance 0 Weight 94.8 kg General appearance: PRESENT: no acute distress, cooperative, obese, well- developed, well-nourished Head exam: PRESENT: atraumatic, normocephalic Eye exam: PRESENT: conjunctiva pink, EOMI, PERRLA. ABSENT: scleral icterus Ear exam: PRESENT: normal external ear exam Mouth exam: PRESENT: moist, tongue midline Neck exam: ABSENT: carotid bruit, JVD, lymphadenopathy, thyromegaly Respiratory exam: PRESENT: clear to auscultation jessenia, symmetrical, unlabored. ABSENT: rales, rhonchi, wheezes Cardiovascular exam: PRESENT: RRR, +S1, +S2. ABSENT: diastolic murmur, rubs, systolic murmur Pulses: PRESENT: normal radial pulses, normal dorsalis pedis pul Vascular exam: PRESENT: normal capillary refill GI/Abdominal exam: PRESENT: normal bowel sounds, soft. ABSENT: distended, guarding, mass, organolmegaly, rebound, tenderness Rectal exam: PRESENT: deferred Extremities exam: PRESENT: tenderness - RUE; shoulder immobilizer. ABSENT: calf tenderness, clubbing, pedal edema Neurological exam: PRESENT: alert, awake, oriented to person, oriented to place, oriented to time, oriented to situation, CN II-XII grossly intact. ABSENT: motor sensory deficit Psychiatric exam: PRESENT: appropriate affect, normal mood. ABSENT: homicidal ideation, suicidal ideation Skin exam: PRESENT: dry, erythema - BLE, intact, warm. ABSENT: cyanosis, rash Results Laboratory Results: 08/23/18 12:10 08/23/18 12:10 08/23/18 08/23/18 08/23/18 11:55 12:10 12:10 WBC 7.8 RBC 3.79 Hgb 10.7 L Hct 32.1 L MCV 85 MCH 28.2 MCHC 33.3 RDW 16.8 H Plt Count 210 Sodium 139.8 Potassium 3.4 L Chloride 102 Carbon Dioxide 30 Anion Gap 8 BUN 13 Creatinine 0.67 Est GFR ( Amer) > 60 Est GFR (Non-Af Amer) > 60 Glucose 164 H Calcium 9.6 Urine Color YELLOW Urine Appearance CLEAR Urine pH 5.0 Ur Specific [place] 1.024 Urine Protein NEGATIVE Urine Glucose (UA) NEGATIVE Urine Ketones NEGATIVE Urine Blood NEGATIVE Urine Nitrite NEGATIVE Ur Leukocyte Esterase TRACE H Urine WBC (Auto) 3 Urine RBC (Auto) 1 Impressions: Chest X-Ray 08/23/18 00:00 IMPRESSION: Stable enlarged cardiac silhouette without evidence of acute intrathoracic process. Assessment & Plan - Diagnosis (1) Hypotension Qualifiers: Hypotension type: unspecified hypotension type Qualified Code(s): I95.9 - Hypotension, unspecified Is this a current diagnosis for this admission?: Yes Plan: Patient was noted to have hypotension (74/47 -87/58) preoperatively. Similar blood pressures were seen during her ED visit on 08/15/18. Blood pressures were obtained via automatic cuff to her left upper extremity; of note, patient reports that she has chronic low blood pressure when read in her left upper extremity. She cannot recall if she has had any workup to determine the cause of this. Blood pressure to her right lower leg noted to be 150/70. She is asymptomatic; denies dizziness, headache, palpitations, chest pain, dyspnea and is ambulatory without difficulty. EKG demonstrated NSR with nonspecific T wave changes to the lateral leads. Chest x-ray showed stable cardiomegaly without acute processes. Patient's chronic anemia is stable with a hemoglobin of 10.7 which is actually higher than her most recent lab in May of this year. TSH pending. Discussed with cardiology; will obtain a CTA to rule out coarctation of the aorta. Will obtain echocardiogram to evaluate left ventricular function per anesthesia's request. Holding parameters on antihypertensives. Nursing is asked to monitor blood pressures via her lower extremities. Fall precautions. (2) Right humeral fracture Qualifiers: Fracture type: closed Fracture alignment: displaced Is this a current diagnosis for this admission?: Yes Plan: Management per Dr. Mary Ireland. Cardiology is consulted for cardiac clearance; appreciate Dr. Babin's assistance. (3) COPD (chronic obstructive pulmonary disease) Qualifiers: Chronic bronchitis type: unspecified Is this a current diagnosis for this admission?: Yes Plan: Stable and without exacerbation at this time. Supplemental oxygen as needed to maintain oxygen saturations greater than 89%. As needed nebulizer treatments. Flutter valve to bedside. (4) Anemia Qualifiers: Anemia type: unspecified type Qualified Code(s): D64.9 - Anemia, unspecified Is this a current diagnosis for this admission?: Yes Plan: Stable; likely secondary to anemia of chronic disease. Hemoglobin noted to be 10.7. This is actually improved from her baseline. Continue multivitamin with iron supplementation. 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 Accu-Cheks before meals and at bedtime with Humalog for sliding scale coverage. The patient takes Toujeo 44 units nightly; will continue Lantus 30 units nightly while inpatient (decrease dose to secondary to likely improve dietary compliance while on consistent carb diet). (7) Obstructive sleep apnea Is this a current diagnosis for this admission?: Yes Plan: CPAP nightly. (8) Hypothyroidism Qualifiers: Hypothyroidism type: unspecified Qualified Code(s): E03.9 - Hypothyroidism, unspecified Is this a current diagnosis for this admission?: Yes Plan: TSH is pending. Continue patient's home dose levothyroxine. - Time Time Spent: 50 to 70 Minutes Medications reviewed and adjusted accordingly: Yes Anticipated discharge: Home Within: within 48 hours
[2018-08-23] MEDS ORDERED: ACETAMINOPHEN 325 MG TABLET ONE (16:07)
[2018-08-23] MEDS: ACETAMINOPHEN 325 MG TABLET PO PRN ×2 (16:15→21:52)
[2018-08-23] MEDS ORDERED: MAG HYDROX/AL HYDROX/SIMETH SUSP 30 ML UDCUP ONE (16:30)
--- NOTE | 2018-08-23 17:47 | RADIOLOGY REPORT (SQ) ---
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 Images reviewed with lung, soft tissue and bone windows. Reconstructed coronal and sagittal MPR images reviewed. Additional 3 dimensional post-processing performed to develop Maximal Intensity Projection images (IL P). All images stored on PACS. All CT scanners at this facility use dose modulation, iterative reconstruction, and/or weight based d osing when appropriate to reduce radiation dose to as low as reasonably achievable (ALARA). [facility]: Dose Right [facility]: CareDose [facility]: Dose Right [facility]: Teradose 4D [facility]: Mamina Shkola CONTRAST TYPE AND DOSE: contrast/concentration: Isovue 350.00 mg/ml; Total Contrast Delivered: 82.0 ml; Total Saline Delivered: 80.0 ml Contrast bolus optimized for the pulmonary arteries. Not diagnostic for the aorta. RENAL FUNCTION: BUN 13 creatinine 0.67 RADIATION DOSE: CT Rad equipment meets quality standard of care and radiation dose reduction techniq ues were employed. CTDIvol: 34.5 - 39.7 mGy. DLP: 1383 mGy-cm. . LIMITATIONS: None. FINDINGS: LUNGS AND PLEURA: No masses, infiltrates, or pneumothorax. No pleural effusions or pleura l calcifications. AORTA AND GREAT VESSELS: No aneurysm. Contrast bolus not optimized for the aorta. HEART: No pericardial effusion. Moderate to marked coronary artery calcifications. PULMONARY ARTERIES: No emboli visualized in the main pulmonary arteries or the segmental branches. HILAR AND MEDIASTINAL STRUCTURES: No identified masses or abnormal nodes. HARDWARE: None in the chest. UPPER ABDOMEN: No significant findings. Limited exam. THYROID AND OTHER SOFT TISSUES: No masses. No adenopathy. BONES: No acute or significant finding. 3D MIPS: Confirm above findings. OTHER: No other significant finding. IMPRESSION: NORMAL CTA OF THE CHEST. NO PULMONARY EMBOLI. COMMENT: Quality ID # [id number]: Final reports with documentation of one or more dose reduction techniques (e.g., Automated exposure control, adjustment of the mA and/or kV according to patient size, use of iterative reconstruction technique) TECHNICAL DOCUMENTATION: JOB ID: [id number] [employer]- All Rights Reserved Reading location - IP/workstation name: [email or web address]
[2018-08-23] MEDS: IPRATROPIUM/ALBUTEROL 0.5-2.5 MG/3 ML AMPUL NEB PRN (19:40)
--- NOTE | 2018-08-23 20:24 | Progress Note ---
Provider Note Provider Note: Patient is a 77-year-old female who was going to be planned for open reduction internal fixation of her greater tuberosity fracture but unfortunately patient needed to be medically optimized therefore the patient was admitted overnight and will be then put on the schedule for tomorrow for the above procedure.
[2018-08-23] MEDS: FAMOTIDINE 20 MG TABLET PO SCH (21:53)
[2018-08-23] MEDS ORDERED: FENOFIBRATE NANOCRYSTALLIZED 145 MG TABLET PO SCH (22:00)
[2018-08-23] MEDS ORDERED: INSULIN GLARGINE,HUM.REC.ANLOG 300 UNIT/3 ML INSULN.PEN SUBCUT SCH (22:00)
[2018-08-23] MEDS ORDERED: POTASSIUM CHLORIDE 10 MEQ CAPSULE.ER PO ONE (22:00)
[2018-08-24] MEDS ORDERED: POTASSIUM CHLORIDE 10 MEQ CAPSULE.ER PO ONE (00:30)
[2018-08-24] MEDS: ACETAMINOPHEN 325 MG TABLET PO PRN ×3 (03:53→19:02)
[2018-08-24] MEDS ORDERED: LEVOTHYROXINE SODIUM 0.15 MG TABLET PO SCH ×2 (06:00)
[2018-08-24 07:02] LABS: HEMATOCRIT 32.8 % (36.0-47.0); HEMOGLOBIN 10.7 g/dL (12.0-15.5); MEAN CORPUSCULAR HEMOGLOBIN 28.1 pg (27.0-33.4); MEAN CORPUSCULAR HGB CONC 32.6 g/dL (32.0-36.0); MEAN CORPUSCULAR VOLUME 86 fl (80-97); PLATELET COUNT 201 10^3/uL (150-450); RED BLOOD COUNT 3.81 10^6/uL (3.72-5.28); RED CELL DISTRIBUTION WIDTH 16.9 % (11.5-14.0); WHITE BLOOD COUNT 5.3 10^3/uL (4.0-10.5)
[2018-08-24 07:24] LABS: ANION GAP 8 (5-19); BLOOD UREA NITROGEN 11 mg/dL (7-20); CALCIUM 9.4 mg/dL (8.4-10.2); CARBON DIOXIDE 30 mmol/L (22-30); CHLORIDE 103 mmol/L (98-107); GLUCOSE 177 mg/dL (75-110); POTASSIUM 3.7 mmol/L (3.6-5.0); SODIUM 140.9 mmol/L (137-145)
--- NOTE | 2018-08-24 08:17 | XCELERA REPORT ---
[address] [address] Transthoracic Echocardiogram Report Name: NIELS ALSTON Age: 77 yrs Gender: Female : 1940 Patient Status: Inpatient Patient Location: [address] [place] [address] Study Date: 08/23/2018 06:19 PM Height: 64 in Weight: 208 lb BSA: 2.0 m2 Procedure: A two-dimensional transthoracic echocardiogram with color flow Doppler was performed. The study was technically difficult with many images being suboptimal in quality. Study Quality: Poor. Reason For Study: pre-op clearance w/ hypotension History: pre-op clearance w/ hypotension. Ordering Physician: KERON WALTON Performed By: Josette Corona Interpretation Summary The left ventricle is normal in size. LV EF is > than 60% Left ventricular systolic function is normal. Doppler measurements suggest impaired left ventricular relaxation, which is associated with grade I/IV or mild diastolic dysfunction The left ventricular wall motion is normal. The right ventricle is not well visualized secondary to technical limitations Right atrium not well visualized secondary to technical limitations The left atrial size is normal. There is moderate mitral annular calcification. There is no evidence of mitral valve prolapse. There is no vegetation seen on the mitral valve. There is no mitral valve stenosis. There is a mild amount of mitral regurgitation There is no aortic valvular vegetation. There is no aortic valve stenosis No aortic regurgitation is present. There is no tricuspid stenosis. Not well interogated.probably trace TR.RVSP is 37 to 42 mm of Hg , with RA mean of 5 to 10. There is mild pulmonary hypertension by echo The pulmonic valve is not well visualized. There is no pericardial effusion. MMode/2D Measurements & Calculations RVDd: 2.7 cm LVIDd: 4.8 cm FS: 28.2 % Ao root diam: 2.8 cm IVSd: 1.0 cm LVIDs: 3.4 cm EDV(Teich): 105.3 ml Ao root area: 6.1 cm2 LVPWd: 1.1 cm ESV(Teich): 47.9 ml LA dimension: 3.8 cm EF(Teich): 54.5 % Doppler Measurements & Calculations MV E max peter: MV P1/2t max peter: Ao V2 max: LV V1 max P.4 cm/sec 131.7 cm/sec 142.5 cm/sec 4.9 mmHg MV A max peter: MV P1/2t: 56.9 msec Ao max PG: LV V1 max: 140.7 cm/sec MVA(P1/2t): 3.9 cm2 8.1 mmHg 111.1 cm/sec MV E/A: 0.61 MV dec slope: 678.2 cm/sec2 MV dec time: 0.27 sec TV V2 max: PA V2 max: TR max peter: MV P1/2t-pr_phl: 108.6 cm/sec 97.7 cm/sec 281.0 cm/sec 56.9 msec TV max P.7 mmHgPA max P.8 mmHg TR max P.6 mmHg Left Ventricle The left ventricle is normal in size. There is normal left ventricular wall thickness. LV EF is > than 60%. Left ventricular systolic function is normal. Doppler measurements suggest impaired left ventricular relaxation, which is associated with grade I/IV or mild diastolic dysfunction. The left ventricular wall motion is normal. Right Ventricle The right ventricle is not well visualized secondary to technical limitations. Atria Right atrium not well visualized secondary to technical limitations. The left atrial size is normal. Mitral Valve There is moderate mitral annular calcification. There is no evidence of mitral valve prolapse. There is no vegetation seen on the mitral valve. There is no mitral valve stenosis. There is a mild amount of mitral regurgitation. Aortic Valve There is no aortic valvular vegetation. There is no aortic valve stenosis. No aortic regurgitation is present. Tricuspid Valve There is no tricuspid stenosis. Not well interogated.probably trace TR.RVSP is 37 to 42 mm of Hg , with RA mean of 5 to 10. There is mild pulmonary hypertension by echo. Pulmonic Valve The pulmonic valve is not well visualized. Great Vessels The aortic root is not well visualized. Effusions There is no pericardial effusion. : KERON WALTON > Casandra Rosenberg
[2018-08-24] MEDS: IPRATROPIUM/ALBUTEROL 0.5-2.5 MG/3 ML AMPUL NEB PRN ×2 (08:19→14:21)
[2018-08-24] MEDS ORDERED: CEFAZOLIN SODIUM 2 GM in DEXTROSE 5%-WATER 100 ML IV PRN (08:45)
[2018-08-24] MEDS ORDERED: MULTIVITAMIN TABLET PO SCH (10:00)
[2018-08-24] MEDS ORDERED: ISOSORBIDE MONONITRATE 30 MG TAB.ER.24H PO SCH (10:00)
[2018-08-24] MEDS ORDERED: METOPROLOL SUCCINATE 25 MG TAB.SR.24H PO SCH ×2 (10:00)
[2018-08-24] MEDS ORDERED: ISOSORBIDE DINITRATE 10 MG TABLET PO SCH (10:00)
[2018-08-24] MEDS ORDERED: POTASSIUM CHLORIDE 10 MEQ CAPSULE.ER PO SCH (10:00)
[2018-08-24] MEDS ORDERED: DOCUSATE SODIUM 100 MG CAPSULE PO SCH (10:00)
[2018-08-24] MEDS ORDERED: (PENDING PHARMACY ID) (Isosorbide Dinitrate [Isosorbide Dinitrate] 30 MG) PO SCH (10:00)
[2018-08-24] MEDS ORDERED: FERROUS SULFATE 325 MG TABLET PO SCH (10:00)
[2018-08-24] MEDS ORDERED: LEVOTHYROXINE SODIUM PO SCH (10:00)
[2018-08-24] MEDS: FAMOTIDINE 20 MG TABLET PO SCH (10:34)
[2018-08-24] MEDS ORDERED: BUDESONIDE/FORMOTEROL 160-4.5 MCG 60 PUFF/6 GM MDI IH SCH (12:00)
[2018-08-24] MEDS ORDERED: TIOTROPIUM BROMIDE DPI 5 CAP/KIT (18 MCG/CAP) IH SCH (12:00)
[2018-08-24 13:47] VITALS: BP 100/53
--- NOTE | 2018-08-24 16:46 | PDOC PROGRESS REPORT ---
Subjective Progress Note for:: 08/24/18 Subjective:: The patient is a 77 year old female with a past medical history of chronic respiratory failure secondary to COPD who is home O2 dependent, insulin- dependent diabetes mellitus, hypothyroidism, chronic diastolic CHF, HÉCTOR, anemia, and obesity who was admitted 08/21/18 for hypotension and preoperative workup prior to orthopedic surgery by Dr. Hernandez. The patient was seen on morning rounds. She was found sitting comfortably up to the edge of the bed on supplemental oxygen at 2 L/min (baseline oxygen requirement). The patient reports some frustration with the delay in her surgical procedure, but is appreciative of the assistance in obtaining preoperative clearance. She denies symptomatic hypotension and reports that she has been aware of low blood pressure to her left arm chronically, but cannot recall whether or not this is been worked up in the past. She denies fever, chills, headache, dizziness, palpitations, chest pain, dyspnea, orthopnea, cough, abdominal pain, nausea vomiting and diarrhea. She has no new questions or concerns today. No concerns per nursing. Reason For Visit: HYPOTENSION Physical Exam Vital Signs: Temp Pulse Resp BP Pulse Ox 98.7 F 88 20 100/53 L 97 08/24/18 12:00 08/24/18 14:23 08/24/18 14:23 08/24/18 12:00 08/24/18 16:00 Intake & Output 08/23/18 08/24/18 08/25/18 06:59 06:59 06:59 Intake Total 325 Balance 325 Weight 217.2 kg 98.486 kg General appearance: PRESENT: no acute distress, cooperative - pleasant, well- developed, well-nourished Head exam: PRESENT: atraumatic, normocephalic Eye exam: PRESENT: conjunctiva pink, EOMI, PERRLA. ABSENT: scleral icterus Ear exam: PRESENT: normal external ear exam Mouth exam: PRESENT: moist, tongue midline Neck exam: ABSENT: carotid bruit, JVD, lymphadenopathy, thyromegaly Respiratory exam: PRESENT: prolonged expiratory phas, symmetrical, unlabored, wheezes - Slight end expiratory wheezing, other - Supplemental oxygen via nasal cannula. ABSENT: rales, rhonchi Cardiovascular exam: PRESENT: RRR, +S1, +S2. ABSENT: diastolic murmur, rubs, systolic murmur Pulses: PRESENT: normal dorsalis pedis pul Vascular exam: PRESENT: normal capillary refill GI/Abdominal exam: PRESENT: normal bowel sounds, soft. ABSENT: distended, guarding, mass, organolmegaly, rebound, tenderness Rectal exam: PRESENT: deferred Extremities exam: PRESENT: pedal edema - Trace bilaterally, tenderness - Right upper extremity; shoulder immobilizer in place. ABSENT: calf tenderness, clubbing Neurological exam: PRESENT: alert, awake, oriented to person, oriented to place, oriented to time, oriented to situation, CN II-XII grossly intact. ABSENT: motor sensory deficit Psychiatric exam: PRESENT: appropriate affect, normal mood. ABSENT: homicidal ideation, suicidal ideation Skin exam: PRESENT: dry, intact, warm. ABSENT: cyanosis, rash Results Laboratory Results: 08/24/18 06:15 08/24/18 06:15 08/23/18 08/24/18 08/24/18 12:10 06:15 06:15 WBC 5.3 RBC 3.81 Hgb 10.7 L Hct 32.8 L MCV 86 MCH 28.1 MCHC 32.6 RDW 16.9 H Plt Count 201 Sodium 140.9 Potassium 3.7 Chloride 103 Carbon Dioxide 30 Anion Gap 8 BUN 11 Creatinine 0.68 Est GFR ( Amer) > 60 Est GFR (Non-Af Amer) > 60 Glucose 177 H Calcium 9.4 TSH 7.00 H 08/23/18 12:10 NT-Pro-B Natriuret Pep 685 H Impressions: Chest X-Ray 08/23/18 00:00 IMPRESSION: Stable enlarged cardiac silhouette without evidence of acute intrathoracic process. Chest/Abdomen CTA 08/23/18 00:00 IMPRESSION: NORMAL CTA OF THE CHEST. NO PULMONARY EMBOLI. Assessment & Plan - Diagnosis (1) Hypotension Qualifiers: Hypotension type: unspecified hypotension type Qualified Code(s): I95.9 - Hypotension, unspecified Is this a current diagnosis for this admission?: Yes Plan: Stable; asymptomatic. Hypotension noted to her left upper extremity only, appropriate blood pressures to bilateral lower legs. Unable to obtain in the right arm due to humerus fracture. Of note, patient reports that she has chronic low blood pressure when read in her left upper extremity. She cannot recall if she has had any workup to d prafulermine the cause of this. She is asymptomatic; denies dizziness, headache, palpitations, chest pain, dyspnea and is ambulatory without difficulty. EKG demonstrated NSR with nonspecific T wave changes to the lateral leads. Chest x-ray showed stable cardiomegaly without acute processes. Patient's chronic anemia is stable with a hemoglobin of 10.7 which is actually higher than her most recent lab in May of this year. TSH 7.00, Free T4 pending. Chest CTA was normal. Echocardiogram demonstrated LVEF greater than 60%, normal LV systolic function, grade 1 diastolic dysfunction, and mild pulmonary hypertension. Carotid Doppler is pending; requested to rule out subclavian steal. Holding parameters on antihypertensives. Nursing is asked to monitor blood pressures via her lower extremities. Fall precautions. (2) Right humeral fracture Qualifiers: Fracture type: closed Fracture alignment: displaced Is this a current diagnosis for this admission?: Yes Plan: Management per Dr. Mary Ireland. Cardiology is consulted for cardiac clearance. Spoke with Dr. Babin today; has provided cardiac specific clearance for the procedure given the patient's echocardiogram, EKG, lab evaluation, and baseline ambulatory function (no limitations on walking/climbing stairs). (3) COPD (chronic obstructive pulmonary disease) Qualifiers: Chronic bronchitis type: unspecified Is this a current diagnosis for this admission?: Yes Plan: Stable and without exacerbation at this time. Slight wheeze on exam today; no cough or dyspnea reported. Supplemental oxygen as needed to maintain oxygen saturations greater than 89%. As needed nebulizer treatments. Resume home-dose Spiriva and Symbicort. Monitor closely for need for steroid therapy. Flutter valve to bedside. (4) Anemia Qualifiers: Anemia type: unspecified type Qualified Code(s): D64.9 - Anemia, unspecified Is this a current diagnosis for this admission?: Yes Plan: Stable; likely secondary to anemia of chronic disease. Hemoglobin noted to be 10.7. This is actually improved from her baseline. Continue multivitamin with iron supplementation. (5) Chronic diastolic CHF (congestive heart failure) Is this a current diagnosis for this admission?: Yes Plan: Chest x-ray and CTA were benign. Echocardiogram demonstrated LVEF greater than 60%, normal LV systolic function, grade 1 diastolic dysfunction, and mild pulmonary hypertension. ProBNP 685. Mild pedal edema; no crackles on lung sounds. Patient appears euvolemic. Continue home dose metoprolol (holding parameters). Monitor closely for fluid volume overload; no indications for diuretics at this time. 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 Accu-Cheks before meals and at bedtime with Humalog for sliding scale coverage. The patient takes Toujeo 44 units nightly; will continue Lantus 30 units nightly while inpatient (decrease dose to secondary to likely improve dietary compliance while on consistent carb diet). (7) Obstructive sleep apnea Is this a current diagnosis for this admission?: Yes Plan: CPAP nightly. (8) Hypothyroidism Qualifiers: Hypothyroidism type: unspecified Qualified Code(s): E03.9 - Hypothyroidism, unspecified Is this a current diagnosis for this admission?: Yes Plan: TSH 7.00. Free T4 pending. Continue patient's home dose levothyroxine. - Time Time Spent with patient: 25-34 minutes Medications reviewed and adjusted accordingly: Yes Anticipated discharge: Home - Plan Summary Plan Summary: Spoke with Dr. Mary Ireland today; will assume care of the patient. The hospitalist service is signing off. Please reconsult if we can provide any further assistance. The patient has cardiac clearance to proceed with orthopedic repair. However, after speaking with anesthesia, there is concern that the patient's pending Carotid Doppler will confirm subclavian steal as the source of her blood pressure discrepancies. If this is confirmed, patient will not be eligible to have her procedure at our facility.
--- NOTE | 2018-08-24 16:50 | RADIOLOGY REPORT (SQ) ---
EXAM DESCRIPTION: CAROTID DOPPLER COMPLETED DATE/TIME: 08/24/2018 4:08 pm REASON FOR STUDY: EVAL FOR SUBCLAVIAN STEAL, LOW BP LUE S42.251A DISP FX OF GREATER TUBEROSITY OF R IGHT HUMERUS, INI Z79.899 OTHER [facility] (CURRENT) DRUG THERAPY I50.812 CHRONIC RIGHT HEART FAILUR E COMPARISON: 08/23/2018 TECHNIQUE: Grayscale ultrasound, Doppler velocity and spectra, and color Doppler images acquired of the extra-cranial carotid and vertebral arteries. Images stored on PACS. LIMITATIONS: None. FINDINGS: RIGHT CAROTID CCA Velocities: Multiphasic waveform without evidence of high-grade stenosis. ICA Velocities Peak systolic 232 cm/s. End diastolic 49 cm/s. Proximal ICA/CCA peak systolic ratio 2.9. Multiphasic waveform. Eccentric calcified plaque. Elevated velocities within the proximal external carotid artery measuring up to 372 cm/s suggestive o f greater than 70% stenosis. LEFT CAROTID CCA Velocities: Multiphasic waveform without evidence of high-grade stenosis. ICA Velocities Peak systolic 136 cm/s. End diastolic 25 cm/s. Proximal ICA/CCA peak systolic ratio 1.1. Multiphasic waveform. Eccentric calcified plaque. Normal velocity without evidence of high-grade stenosis within the external carotid artery. VERTEBRAL ARTERIES: Antegrade flow within the right vertebral artery. Normal velocity and waveform. Retrograde flow within the left vertebral artery. SUBCLAVIAN ARTERIES: Right subclavian demonstrates multiphasic waveform and sharp systolic upstroke. Velocities measure up to 244 cm/second. Origin of the left subclavian artery is not visualized. Th ere is diminished velocities and blunted waveform within the visualized aspect of the subclavian cynthia ry compatible with high-grade upstream stenosis. OTHER: No other significant finding. IMPRESSION: 1. 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 Diminished velocities and blunted upstroke within the visualized left subclavian a rtery compatible with proximal stenosis. Correlation with prior CT demonstrates extensive ostial jeniffer que. 2. Bilateral carotid atherosclerosis with greater than 70% stenosis on the right. Case discussed with Dr. Kirkland at the time of interpretation. COMMENT: Quality ID #[id number]: Velocity criteria are extrapolated from the diameter data as defined by t he Society of Radiologists in Ultrasound Consensus Conference. Radiology 2003: 229; 340-346. TECHNICAL DOCUMENTATION: JOB ID: [id number] [email or web address] All Rights Reserved Reading location - IP/workstation name: [email or web address] MACHINE OPERATOR [email or web address]
== END 2018-08-24 19:45 | disposition home health service (06) ==
LOC: OROUT 10:50 → 2N 14:59 → INOR 14:59 → UNDOADMOB 14:59 → 4S 17:38
PROVIDERS: ADMIT Orthopaedic Surgery; ATTEND Orthopaedic Surgery
DX: I95.9 Hypotension, unspecified (principal); S42.251A Displaced fracture of greater tuberosity of right humerus, initial encounter for closed fracture; W10.8XXA Fall (on) (from) other stairs and steps, initial encounter; D64.9 Anemia, unspecified; I50.32 Chronic diastolic (congestive) heart failure; E11.65 Type 2 diabetes mellitus with hyperglycemia; R05 Cough; E66.9 Obesity, unspecified; J44.9 Chronic obstructive pulmonary disease, unspecified; E03.9 Hypothyroidism, unspecified; G47.33 Obstructive sleep apnea (adult) (pediatric); I25.10 Atherosclerotic heart disease of native coronary artery without angina pectoris; I27.20 Pulmonary hypertension, unspecified; Z79.4 Long term (current) use of insulin; Z87.891 Personal history of nicotine dependence; Z66 Do not resuscitate; Z98.890 Other specified postprocedural states; Z79.899 Other long term (current) drug therapy; Z53.09 Procedure and treatment not carried out because of other contraindication; Z99.81 Dependence on supplemental oxygen
CPT/HCPCS: 36415 ×2; 84439; 82962 ×2; 84443; 85027 ×2; 80048 ×2; 81001; 83036; 83880; 93306; 93880; 71045; 71275; 93005; 93010; 94640 ×2; G0378 ×3; A9270 ×12; J0690; J3490 ×3; J1815; J7620